=== PATIENT | female | born 1940 | race African-American/Black ===

== ENCOUNTER 2016-09-30 22:28 | Inpatient (IN) | payer MEDICARE ==
[2016-09-30 22:38] VITALS: BMI 22.3
[2016-09-30] MEDS ORDERED: SODIUM CHLORIDE 500 ML IV STA (23:14)
--- NOTE | 2016-09-30 23:14 | PDOC ---
History of Present Illness - General History Source: Patient, Family (daughter) Exam Limitations: No Limitations - History of Present Illness Initial Comments: 09/30/16 23:19 The patient is a 76 year old female with significant past medical history of MS who presents to the ED BIBA from home with rectal bleeding that began earlier this morning. As per daughter, at bedside, noted patient has had decreased energy over the past 4 days with lack of appetite today. She states normally patient has a good appetite, however she was not able to finish her meal today. Daughter also noted dark red blood with clot coming from the rectal area earlier this morning. Patient also has complaints of mild abdominal pain. Patient recently moved into a new apartment. The patient denies fever, chills, cough, SOB, chest pain, and palpitations. The patient denies nausea, vomiting, and diarrhea. Allergies: NKDA Social History: No alcohol, tobacco, or drug use reported. Past Surgical History: None reported PCP: Dr. Abimael Cao <Yeny Tyson - Last Filed: 09/30/16 23:23> - General History Source: Patient, Family Exam Limitations: No Limitations <Dallin Rahman - Last Filed: 10/01/16 00:11> - General Chief Complaint: Rectal Bleed Stated Complaint: RECTAL BLEED Time Seen by Provider: 09/30/16 22:52 Past History <Yeny Tyson - Last Filed: 09/30/16 23:23> - Past Medical History Other medical history: MS - Psycho/Social/Smoking Cessation Hx Suicidal Ideation: No Smoking History: Unknown if ever smoked Have you smoked in the past 12 months: No Information on smoking cessation initiated: No Hx Alcohol Use: No Drug/Substance Use Hx: No Substance Use Type: None <Dallin Rahman - Last Filed: 10/01/16 00:11> - Past Medical History Allergies/Adverse Reactions: Allergies Allergy/AdvReac Type Severity Reaction Status Date / Time No Known Allergies Allergy Verified 09/30/16 23:23 Home Medications: Ambulatory Orders Donepezil HCl 23 mg PO DAILY 09/30/16 Review of Systems - Review of Systems Able to Perform ROS?: Yes Comments:: 09/30/16 23:19 +rectal bleeding, decreased energy, lack of appetite, abdominal pain Absent: fever, chills, cough, SOB, chest pain, palpitations, nausea, vomiting, and diarrhea. <Yeny Tyson - Last Filed: 09/30/16 23:23> *Physical Exam - Vital Signs Last Vital Signs Temp Pulse Resp BP Pulse Ox 97.2 F L 61 17 143/48 100 09/30/16 22:34 09/30/16 22:34 09/30/16 22:34 09/30/16 22:34 09/30/16 22:34 <Yeny Tyson - Last Filed: 09/30/16 23:23> - Vital Signs Last Vital Signs Temp Pulse Resp BP Pulse Ox 97.2 F L 61 17 143/48 100 09/30/16 22:34 09/30/16 22:34 09/30/16 22:34 09/30/16 22:34 09/30/16 22:34 - Physical Exam General Appearance: Yes: Nourished, Appropriately Dressed. No: Apparent Distress HEENT: positive: Normal ENT Inspection Neck: positive: Supple. negative: Tender Respiratory/Chest: positive: Lungs Clear, Normal Breath Sounds. negative: Respiratory Distress Cardiovascular: positive: Regular Rhythm, Regular Rate Gastrointestinal/Abdominal: positive: Normal Bowel Sounds, Soft. negative: Tender Rectal Exam: positive: melena Musculoskeletal: positive: Normal Inspection. negative: CVA Tenderness Extremity: positive: Normal Inspection Integumentary: positive: Normal Color Neurologic: positive: Fully Oriented, Alert, Normal Mood/Affect, Normal Response. negative: Motor Strength 5/5 (hx of ms easandra not increased) <Dallni Rahman - Last Filed: 10/01/16 00:11> ED Treatment Course - LABORATORY CBC & Chemistry Diagram: 09/30/16 23:00 09/30/16 23:00 <Dallin Rahman - Last Filed: 10/01/16 00:11> Progress Note - Progress Note Progress Note: GIB admit ivf / labs <Dallin Rahman - Last Filed: 10/01/16 00:11> *DC/Admit/Observation/Transfer - Attestations Scribe Attestion: 09/30/16 23:20 Documentation prepared by Yeny Tyson, acting as senior medical transcriptionist for Dallin Rahman MD <Yeny Tyson - Last Filed: 09/30/16 23:23> - Discharge Dispostion Admit: Yes <Dallin Rahman - Last Filed: 10/01/16 00:11> Diagnosis at time of Disposition: Gastrointestinal hemorrhage Qualifiers: GI bleed type/associated pathology: unspecified gastrointestinal hemorrhage type Qualified Code(s): K92.2 - Gastrointestinal hemorrhage, unspecified - Discharge Dispostion Condition at time of disposition: Fair - Referrals Referrals: STAFF,NOT ON [Non Staff, Medical] -
[2016-09-30 23:26] LABS: BASOPHIL 0.8 % (0-2.0); EOSINOPHIL 2.9 % (0-4.5); MCH 28.8 pg (25.7-33.7); MCHC 32.4 g/dl (32.0-36.0); MEAN PLT VOLUME 9.4 fl (7.5-11.1); NEUTROPHILS 61.8 % (42.8-82.8); PLATELET COUNT 209 K/MM3 (134-434); RDW 13.7 % (11.6-15.6); WHITE BLOOD COUNT 9.7 K/mm3 (4.0-10.0)
[2016-09-30 23:42] LABS: INR 1.18 (0.82-1.09)
[2016-09-30 23:49] LABS: ALBUMIN 2.7 g/dl (3.4-5.0); ANION GAP 11 (8-16); BILIRUBIN,TOTAL 0.5 mg/dL (0.2-1.0); CALCIUM 8.1 mg/dL (8.5-10.1); CO2 25 mmol/L (21-32); CREATININE 0.7 mg/dL (0.55-1.02); GLUCOSE,RANDOM 119 mg/dL (74-106); SGPT/ALT 17 U/L (12-78); TOT PROT 5.9 g/dl (6.4-8.2)
[2016-09-30 23:50] LABS: ALK PHOS 63 U/L (45-117)
[2016-09-30 23:52] LABS: SGOT/AST 19 U/L (15-37)
--- NOTE | 2016-10-01 00:09 | PN ---
<KennethReylilian Miller - Last Filed: 10/01/16 01:13> Teaching Attending Note ATTENDING PHYSICIAN STATEMENT I saw and evaluated the patient. I reviewed the resident's note and discussed the case with the resident. I agree with the resident's findings and plan as documented. SUBJECTIVE: 76 year old female, with past medical history of MS, with rectal bleeding since 6am, which was first noticed by the daughter when she found a small pool of bright red blood. At the time the patient denied any kind of pain. She notes that this is the first time that this happened. Her BM had blood as well as if she had passed a blood clot. No bleeding throughout day until 9pm when she started to have abdominal cramping lower quadrants diffused. 6/10 severity. Patient initially thought she was having diarrhea. Had a total of 3 BMs thus far. All consisting of dark clots mixed with stool. Denies any chest pain, pressure, shortness of breath, lightheadedness or dizziness. Her last colonoscopy 3 years ago, normal according to patient and daughter. Never had an endoscopy. She denies trauma or fall and is not on any blood thinners. No pain Elicited on presentation Surgical hx: Hysterectomy No social hx OBJECTIVE: GENERAL: Awake, alert, and fully oriented, in no acute distress HEENT: Atraumatic. PERRLA, EOMI. Moist mucosa. No JVD LUNGS: No distress, speaks full sentences, clear to auscultation bilaterally HEART: Regular rate and rhythm, normal S1 and S2, no murmurs, rubs or gallops, peripheral pulses normal and equal bilaterally. ABDOMEN: Soft, nontender, normoactive bowel sounds. No guarding, no rebound. No masses EXTREMITIES: Normal inspection, Normal range of motion, no edema. No clubbing or cyanosis. NEUROLOGICAL: Cranial nerves II through XII grossly intact. Normal speech, no focal sensorimotor deficits SKIN: Warm, Dry, normal turgor, no rashes or lesions noted. RECTAL EXAM: Dark tarry stool with multipel blood clots. CBCD WBC 9.7 K/mm3 (4.0-10.0) 09/30/16 23:00 RBC 4.76 M/mm3 (3.60-5.2) 09/30/16 23:00 Hgb 13.7 GM/dL (10.7-15.3) 09/30/16 23:00 Hct 42.4 % (32.4-45.2) 09/30/16 23:00 MCV 89.0 fl (80-96) 09/30/16 23:00 MCHC 32.4 g/dl (32.0-36.0) 09/30/16 23:00 RDW 13.7 % (11.6-15.6) 09/30/16 23:00 Plt Count 209 K/MM3 (134-434) 09/30/16 23:00 MPV 9.4 fl (7.5-11.1) 09/30/16 23:00 CMP Sodium 145 mmol/L (136-145) 09/30/16 23:00 Potassium 3.9 mmol/L (3.5-5.1) 09/30/16 23:00 Chloride 109 mmol/L (98-107) H 09/30/16 23:00 Carbon Dioxide 25 mmol/L (21-32) 09/30/16 23:00 Anion Gap 11 (8-16) 09/30/16 23:00 BUN 11 mg/dL (7-18) 09/30/16 23:00 Creatinine 0.7 mg/dL (0.55-1.02) 09/30/16 23:00 Creat Clearance w eGFR > 60 (>60) 09/30/16 23:00 Calcium 8.1 mg/dL (8.5-10.1) L 09/30/16 23:00 Total Bilirubin 0.5 mg/dL (0.2-1.0) 09/30/16 23:00 AST 19 U/L (15-37) 09/30/16 23:00 ALT 17 U/L (12-78) 09/30/16 23:00 Alkaline Phosphatase 63 U/L (45-117) 09/30/16 23:00 Total Protein 5.9 g/dl (6.4-8.2) L 09/30/16 23:00 Albumin 2.7 g/dl (3.4-5.0) L 09/30/16 23:00 EKG (10/01/2016) at 22:50: Sinus tachycardia at 109 bpm Premature atrial complexes with aberrant conduction. Possible left atrial enlargement. ASSESSMENT AND PLAN: 76 year old female, with past medical history of MS who presents with dark blood from rectum. 1. Upper GI bleed -NPO -IVF -CBC Q4-6. -Transfuse to hem greater than 7 -PRVCs on hold -Protonix GGT -GI consult -2 large BORE IVs -Monitor on tely -Low threshold for ICU -Currently hemodynamically stable 2. MS -No current exacerbations -No on any medications 3. DVT ppx -SCDs Admit to med tely Spoke with ICU director of materials if GI bleed worsens or becomes unstable will transfer to ICU. Documentation prepared by Rey Cooper, acting as medical concierge for Farhan Ram MD. <Farhan Ram - Last Filed: 10/01/16 06:38> Teaching Attending Note Name of Resident: Therese Rodgers
[2016-10-01] MEDS ORDERED: PANTOPRAZOLE SODIUM 100 ML IVPB ONE ×2 (00:10→00:15)
--- NOTE | 2016-10-01 00:23 | HP ---
CHIEF COMPLAINT: Rectal bleeding PCP: Dr. Abimael Cao HISTORY OF PRESENT ILLNESS: Patient is a 76 year old female with a PMHx of multiple sclerosis who presents for rectal bleeding that first occurred around 0600 today first noticed by her daughter. Patient's daughter reports she found a small pool of bright red blood around her mother but at the time patient had no complaints of abdominal pain. Patient then had a bowel movement and noticed blood as well but with clots this time. After the first bowel movement the patient had no episodes of bleeding until 2100 today when she started having diffuse lower abdominal cramping rating with a 6/10 severity, which prompted this visit. Patient had a total of three bloody bowel movements today all consisting with dark red clots mixed with the stool. Patient's last colonoscopy was three years and and daughter states it was normal. She denies any previous endoscopies. Denies using NSAID's or blood thinners. Denies any trauma, injury or fall. Patient denies shortness of breath, lightheadedness, loss of consciousness, headache, dizziness, fever, chills, nausea, vomiting, constipation, chest pain, palpitations. Patient currently denies active abdominal pain ER course was notable for: (1) Protonix (2) EKG (3) IV NS Recent Travel: None PAST MEDICAL HISTORY: Multiple Sclerosis PAST SURGICAL HISTORY: Hysterectomy () Social History: Smoking: Denies Alcohol: Denies Drugs: Denies Family History: Denies Allergies: No Known Allergies Allergy (Verified 09/30/16 23:23) HOME MEDICATIONS: Medication Instructions Recorded Donepezil HCl 23 mg PO DAILY 09/30/16 REVIEW OF SYSTEMS CONSTITUTIONAL: Present: generalized weakness, malaise, loss of appetite Absent: fever, chills, diaphoresis, weight change HEENT: Absent: rhinorrhea, nasal congestion, throat pain, throat swelling, difficulty swallowing, mouth swelling, ear pain, eye pain, visual changes CARDIOVASCULAR: Absent: chest pain, syncope, palpitations, irregular heart rate, lightheadedness , peripheral edema RESPIRATORY: Absent: cough, shortness of breath, dyspnea with exertion, orthopnea, wheezing, stridor, hemoptysis GASTROINTESTINAL: Present: abdominal pain, melena Absent: abdominal distension, nausea, vomiting, diarrhea, constipation, hematochezia GENITOURINARY: Absent: dysuria, frequency, urgency, hesitancy, hematuria, flank pain, genital pain MUSCULOSKELETAL: Absent: myalgia, arthralgia, joint swelling, back pain, neck pain SKIN: Absent: rash, itching, pallor HEMATOLOGIC/IMMUNOLOGIC: Absent: easy bleeding, easy bruising, lymphadenopathy, frequent infections ENDOCRINE: Absent: unexplained weight gain, unexplained weight loss, heat intolerance, cold intolerance NEUROLOGIC: Absent: headache, focal weakness or paresthesias, dizziness, unsteady gait, seizure, mental status changes, bladder or bowel incontinence PSYCHIATRIC: Absent: anxiety, depression, suicidal or homicidal ideation, hallucinations. PHYSICAL EXAMINATION Vital Signs - 24 hr 09/30/16 22:34 Temperature 97.2 F L Pulse Rate 61 Respiratory 17 Rate Blood Pressure 143/48 O2 Sat by Pulse 100 Oximetry (%) GENERAL: Awake, alert, and fully oriented, in no acute distress. HEAD: Normal with no signs of trauma. EYES: Pupils equal, round and reactive to light, extraocular movements intact, sclera anicteric, conjunctiva clear. No lid lag. EARS, NOSE, THROAT: Ears normal, nares patent, oropharynx clear without exudates. Moist mucous membranes. NECK: Normal range of motion, supple without lymphadenopathy, JVD, or masses. LUNGS: Breath sounds equal, clear to auscultation bilaterally. No wheezes, and no crackles. No accessory muscle use. HEART: Tachycardic with normal rhythm, normal S1 and S2 without murmur, rub or gallop. ABDOMEN: Soft, nontender, not distended, normoactive bowel sounds, no guarding, no rebound, no masses. No hepatomegaly or splenomegaly. : Positive for stool and melena MUSCULOSKELETAL: No bony deformities or tenderness. UPPER EXTREMITIES: No peripheral edema. LOWER EXTREMITIES: No peripheral edema. NEUROLOGICAL: Normal speech. PSYCHIATRIC: Cooperative. Good eye contact. Appropriate mood and affect. SKIN: Warm, dry, normal turgor, no rashes or lesions noted. Laboratory Results - last 24 hr 09/30/16 09/30/16 09/30/16 23:00 23:00 23:00 WBC 9.7 RBC 4.76 Hgb 13.7 Hct 42.4 MCV 89.0 MCHC 32.4 RDW 13.7 Plt Count 209 MPV 9.4 Neutrophils % 61.8 Lymphocytes % 25.2 Monocytes % 9.3 Eosinophils % 2.9 Basophils % 0.8 INR 1.18 H Sodium 145 Potassium 3.9 Chloride 109 H Carbon Dioxide 25 Anion Gap 11 BUN 11 Creatinine 0.7 Creat Clearance w eGFR > 60 Random Glucose 119 H Calcium 8.1 L Total Bilirubin 0.5 AST 19 ALT 17 Alkaline Phosphatase 63 Total Protein 5.9 L Albumin 2.7 L ASSESSMENT/PLAN: Patient is a 76 year old female with a PMHx of multiple sclerosis who presents for rectal bleeding that began this morning. Patient is hemodynamically stable with with no Anemia. Patient admitted to telemetry for further monitoring and management Upper GI Bleed -NPO -Protonix drip -IV Normal Saline -Stool occult -GI consult placed with Dr. Piper -Type and screen -Transfuse patient if <7 or hemodynamically unstable -Repeat CBC Q4-6H -Will have PRBC's on hold -PT/INR ordered -Continue to monitor vitals Multiple Sclerosis -On no home medications -No acute exacerbation F/E/N -On protonix drip -Electrolytes wnl -NPO Prophylaxis -SCD's for DVT -Protonix drip for GI Disposition -Full code -Admitted for inpatient. Will need to see GI for possible endoscopy in the morning Visit type - Emergency Visit Emergency Visit: Yes ED Registration Date: 10/01/16 Care time: The patient presented to the Emergency Department on the above date and was hospitalized for further evaluation of their emergent condition. - New Patient This patient is new to me today: Yes Date on this admission: 10/01/16 - Critical Care Critical Care patient: Yes Total Critical Care Time (in minutes): 35 Critical Care Statement: The care of this patient involved high complexity decision making to prevent further life threatening deterioration of the patient 's condition and/or to evalute & treat vital organ system(s) failure or risk of failure.
--- NOTE | 2016-10-01 00:50 | MSN ---
Admitting History and Physical - Admission Chief Complaint: Rectal Bleed History of Present Illness: Pt is a 76 yr old F presenting to [facility] ED due to rectal bleed. As per daughter, this is a first time incident and pt awoke with a small pool of bright red blood on her bed at 6am with no associated pain. After waking up , pt had a bowel movement with reported "blood clots." At 9pm pt complained of 6/10 cramping, diffuse lower abdominal pain, after which she was brought to ED by daughter. Pt has been regular with bowel movements twice daily. Pt denies constipation, straining, weight loss, night sweats, chest pain, SOB, N/V/D, fevers, or chills. 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) - Past Surgical History Past Surgical History: Yes: Hysterectomy () - Smoking History Smoking history: Former smoker Have you smoked in the past 12 months: No - Alcohol/Substance Use Hx Alcohol Use: No Home Medications - Allergies Allergies/Adverse Reactions: Allergies Allergy/AdvReac Type Severity Reaction Status Date / Time No Known Allergies Allergy Verified 09/30/16 23:23 - Home Medications Home Medications: Ambulatory Orders Donepezil HCl 23 mg PO DAILY 09/30/16 Review of Systems - Review of Systems Constitutional: reports: No Symptoms Eyes: reports: No Symptoms HENT: reports: No Symptoms Neck: reports: No Symptoms Cardiovascular: reports: No Symptoms Respiratory: reports: No Symptoms Gastrointestinal: reports: No Symptoms Genitourinary: reports: No Symptoms Breasts: reports: No Symptoms Reported Musculoskeletal: reports: No Symptoms Integumentary: reports: No Symptoms Neurological: reports: No Symptoms Endocrine: reports: No Symptoms Hematology/Lymphatic: reports: No Symptoms Psychiatric: reports: No Symptoms Physical Examination Vital Signs: Vital Signs Temperature 97.2 F L 09/30/16 22:34 Pulse Rate 61 09/30/16 22:34 Respiratory Rate 09/30/16 22:34 Blood Pressure 143/48 09/30/16 22:34 O2 Sat by Pulse Oximetry (%) 100 09/30/16 22:34 Constitutional: Yes: Well Nourished, No Distress, Calm Eyes: Yes: WNL Cardiovascular: Yes: WNL, Regular Rate and Rhythm Respiratory: Yes: WNL, Regular, CTA Bilaterally Gastrointestinal: Yes: WNL, Normal Bowel Sounds, Soft Integumentary: Yes: WNL Neurological: Yes: WNL, Alert, Oriented Psychiatric: Yes: WNL, Alert, Oriented
[2016-10-01] MEDS ORDERED: PANTOPRAZOLE SODIUM 40 MG VIAL ONE ×2 (01:43→09:50)
[2016-10-01] MEDS: PANTOPRAZOLE SODIUM 80 MG in SODIUM CHLORIDE 100 ML IVPB SCH ×2 (01:54→11:41)
[2016-10-01 03:07] LABS: MCH 28.6 pg (25.7-33.7); MCHC 32.2 g/dl (32.0-36.0); MEAN CELL VOLUME 88.9 fl (80-96); MEAN PLT VOLUME 8.6 fl (7.5-11.1); PLATELET COUNT 185 K/MM3 (134-434); RDW 13.6 % (11.6-15.6); WHITE BLOOD COUNT 9.4 K/mm3 (4.0-10.0)
[2016-10-01] MEDS ORDERED: INSULIN SLIDING SCALE (NOVOLOG) 1 VIAL SQ SCH (07:00)
[2016-10-01 07:56] LABS: INR 1.22 (0.82-1.09); PROTHROMBIN TIME (PATIENT) 13.5 SEC (9.98-11.88)
[2016-10-01 08:08] LABS: ALBUMIN 2.8 g/dl (3.4-5.0); ANION GAP 6 (8-16); BASOPHIL 0.5 % (0-2.0); CALCIUM 7.6 mg/dL (8.5-10.1); CO2 30 mmol/L (21-32); CREATININE 0.7 mg/dL (0.55-1.02); EOSINOPHIL 2.2 % (0-4.5); GLUCOSE,RANDOM 98 mg/dL (74-106); MCH 29.7 pg (25.7-33.7); MEAN CELL VOLUME 90.1 fl (80-96); MEAN PLT VOLUME 8.9 fl (7.5-11.1); NEUTROPHILS 62.2 % (42.8-82.8); PLATELET COUNT 175 K/MM3 (134-434); RDW 13.5 % (11.6-15.6); SGOT/AST 12 U/L (15-37); SGPT/ALT 16 U/L (12-78); WHITE BLOOD COUNT 10.1 K/mm3 (4.0-10.0)
[2016-10-01 08:10] LABS: ALK PHOS 69 U/L (45-117); BILIRUBIN,TOTAL 0.7 mg/dL (0.2-1.0); TOT PROT 5.9 g/dl (6.4-8.2)
[2016-10-01] MEDS ORDERED: ACETAMINOPHEN 325 MG TABLET (FP) PO PRN ×2 (08:27→15:00)
[2016-10-01] MEDS ORDERED: MUPIROCIN 2% TOPICAL OINTMENT FOR DECOLONIZATION NS SCH (10:00)
[2016-10-01] MEDS ORDERED: SODIUM CHLORIDE 1,000 ML IV SCH ×2 (11:15→15:00)
[2016-10-01 11:53] LABS: MCH 29.8 pg (25.7-33.7); MCHC 33.3 g/dl (32.0-36.0); MEAN CELL VOLUME 89.6 fl (80-96); MEAN PLT VOLUME 8.6 fl (7.5-11.1); PLATELET COUNT 167 K/MM3 (134-434); RDW 13.4 % (11.6-15.6); WHITE BLOOD COUNT 10.9 K/mm3 (4.0-10.0)
--- NOTE | 2016-10-01 13:41 | PN ---
Teaching Attending Note Name of Resident: Leigh Brennan ATTENDING PHYSICIAN STATEMENT I saw and evaluated the patient. I reviewed the resident's note and discussed the case with the resident. I agree with the resident's findings and plan as documented. SUBJECTIVE: no fever ro chills, no abd apin . Has rectal bleed at time of evaluation 11:15 am . had abd pain evening yesterday . had colonoscopy reportedly 3 yrs ago and it was nL ., does not remember who did it . Denies any h/o GI bleed . denies any use of NSAIDs or ASA . no N/V even at home OBJECTIVE: NAD , AAOx3 . HEENT: dry MM , no facial droop. no LAP CV: RRR, no MRG , no JVD Lungs : CTAB ABd :soft, NT, ND , NL BS . Ext : trace pedal edema . Rectal: diaper full with dark maroon/black blood with clots, no stool seen. NL hair distribution , stool felt in rectum , with no masses , no internal hemorrhoids and no external hemorrhoids or fissure. ASSESSMENT AND PLAN: 76 y/o Lady with h/o MS who presented with few episodes of Rectal bleed . 1- GI bleed : I suspect lower dource of GI Bleed. Likely from R colon . DDX include diverticular and AVM . Hemorrhoidal bleed , rectal fissure, are not likely . Upper GI bleed is less likely , as her BUN is not elevated, no h/o GERD sx, no NSAIDS/ASA use, and no Nausea or vomiting . I do not suspect bowel ischemia . - start IVF - CBC repeated , slight drop. will repeat q 4 hrs - cont empiric PPI gtt . - Spoke with Dr. Piper, CTA ordered. - avoid any blood thinning products. - will give a unit of blood as bleeding was significant . will give 5 mg of PO Vit K . - further w/u /procedures will be depending on CTA results 2- h/o MS . f/u as out pt 3- DVT PX : SCds Admit to ICU . spoke to Dr. Dean.
[2016-10-01] MEDS ORDERED: PHYTONADIONE 5 MG TABLET PO ONE (14:00)
--- NOTE | 2016-10-01 14:52 | CONSULT ---
Consult Consult Specialty:: gastroenterology Referred by:: hospitalist - History of Present Illness Chief Complaint: rectal bleeding History of Present Illness: 76 y/o female was admitted to the ICU because of rectal bleeding associated wit crampy abdominal pain. She had sevrealepisodes of bleeding since last night associated with tachycardia. Ct angio this morning fail to show active bleeding. She had dark maroon stool. 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) - Past Surgical History Past Surgical History: Yes: Hysterectomy () - Alcohol/Substance Use Hx Alcohol Use: No - Smoking History Smoking history: Former smoker Have you smoked in the past 12 months: No Home Medications - Allergies Allergies/Adverse Reactions: Allergies Allergy/AdvReac Type Severity Reaction Status Date / Time No Known Allergies Allergy Verified 09/30/16 23:23 - Home Medications Home Medications: Ambulatory Orders Donepezil HCl 23 mg PO DAILY 09/30/16 Physical Exam-GI Vital Signs: Vital Signs Temperature 97.9 F 10/01/16 12:56 Pulse Rate 106 H 10/01/16 12:56 Respiratory Rate 19 10/01/16 12:56 Blood Pressure 109/87 10/01/16 12:56 O2 Sat by Pulse Oximetry (%) 99 10/01/16 13:16 Constitutional: Yes: Well Nourished Eyes: Yes: Conjunctiva Clear HENT: Yes: Atraumatic Neck: Yes: Supple Cardiovascular: Yes: Regular Rate and Rhythm Respiratory: Yes: CTA Bilaterally ...Palpate: Yes: Soft. No: Firm/Rigid, Guarding, Hepatomegaly, Mass, Pulsatile Mass, Splenomegaly, Tenderness Labs: CBC, BMP 10/01/16 11:17 10/01/16 07:00 INR, PTT INR 1.22 (0.82-1.09) H 10/01/16 07:00 Imaging - Results Cat Scan: Report Reviewed Problem List - Problems (1) GIB (gastrointestinal bleeding) Assessment/Plan: most likely diverticular bleeding R> continue to observe in ICU transfuse 1 unit of PRBC clear liquids Code(s): K92.2 - GASTROINTESTINAL HEMORRHAGE, UNSPECIFIED
--- NOTE | 2016-10-01 15:18 | MSN ---
Progress Note (SOAP) - Subjective Chief Complaint: Rectal Bleeding History of Present Illness: Patient was examined at bedside with her daughter. Patient was calm and in no apparent distress. She claimed that she has had 3x bowel movements yesterday with active bleeding, Dark colored with dark colored stool. She said that she had not had any bowel movements today. However her nurses have noted that she has had her diaper changed multiple times today due to dark blood coming from the rectum. Patient is currently not complaining of any abdominal pain, but is having some back pain she says due to how she is positioned. No lightheadedness , CP, NVD, cough, MCKINNEY, or weakness. - Current Medications Current Medications: Active Medications Acetaminophen (Tylenol -) 650 mg PO Q4H PRN PRN Reason: FEVER OR PAIN Chlorhexidine Gluconate (Hibiclens For Decolonization -) 1 applic TP HS JACINTO Pantoprazole Sodium 80 mg/ (Sodium Chloride) 100 mls @ 10 mls/hr IVPB Q10H JACINTO PRN Reason: 8 MG/HR Sodium Chloride (Normal Saline -) 1,000 mls @ 75 mls/hr IV ASDIR JACINTO Insulin Aspart (Novolog Vial Sliding Scale -) 1 vial SQ BIDI JACINTO PRN Reason: Protocol Mupirocin (Bactroban Ointment (For Decolonization) -) 1 applic NS BID JACINTO Stop: 10/06/16 09:59 - Objective Vital Signs: Vital Signs Temperature 97.8 F 10/01/16 14:15 Pulse Rate 100 H 10/01/16 14:15 Respiratory Rate 18 10/01/16 14:15 Blood Pressure 144/55 10/01/16 14:15 O2 Sat by Pulse Oximetry (%) 100 10/01/16 14:55 Constitutional: Yes: Well Nourished, No Distress, Calm Eyes: Yes: WNL, Conjunctiva Clear, EOM Intact, PERRL HENT: Yes: WNL, Atraumatic, Normocephalic Cardiovascular: Yes: WNL, Regular Rate and Rhythm, S1, S2 Respiratory: Yes: WNL, Regular, CTA Bilaterally. No: Kussmaul, Mechanically Ventilated, On BiPap, On Nasal O2 Gastrointestinal: Yes: Normal Bowel Sounds, Soft, Melena, Rectal Bleeding (Dark Black). No: Splenomegaly, Tenderness, Tenderness, Epigastrium, Tenderness, Rebound, Vomiting ...Rectal Exam: Yes: Guaiac Positive. No: Hemorrhoids/External, Hemorrhoids/ Internal Musculoskeletal: Yes: WNL, Other (MS) Extremities: Yes: WNL Peripheral Pulses WNL: Yes Peripheral Pulses: Left Radial: 2+, Right Radial: 2+, Left Doralis Pedis: 2+, Right Dorsalis Pedis: 2+ Edema: No Neurological: Yes: Alert, Oriented, Other (MS) ...Motor Strength: Yes: WNL Psychiatric: Yes: WNL, Alert, Oriented Labs Lab Results: CBC, BMP 10/01/16 07:00 Assessment/Plan Arina Garcia is a 76 year old female w/ Hx of multiple sclerosis who presented for dark red rectal bleeding. Patient admitted to telemetry for further monitoring and management Lower/Upper GI Bleed -NPO -Protonix drip -IV Normal Saline -Stool occult -Positive -GI consult - Most likely Diverticulilar bleed -Transfusion as needed -CT Angiogram/Abdomen -Continue to monitor vitals -NG Lavage -Stool test for H. Pylori -Endoscopy -Colonoscopy Multiple Sclerosis -No home meds -PT Prophylaxis -SCD's for DVTs
[2016-10-01 15:27] LABS: MCH 29.1 pg (25.7-33.7); MCHC 32.5 g/dl (32.0-36.0); MEAN CELL VOLUME 89.4 fl (80-96); MEAN PLT VOLUME 8.9 fl (7.5-11.1); PLATELET COUNT 162 K/MM3 (134-434); RDW 13.7 % (11.6-15.6); WHITE BLOOD COUNT 8.7 K/mm3 (4.0-10.0)
[2016-10-01] MEDS ORDERED: DEXTROSE 5%-NORMAL SALINE 1,000 ML IV SCH (15:30)
--- NOTE | 2016-10-01 15:37 | PN ---
Physical Exam: SUBJECTIVE: Patient seen and examined. The pt had another episode of bleeding from her rectum, dark blood with clots present. The pt denies abdominal pain, N/ V, diarrhea. She denies any recent ASA use. She denies fever, chills, dizziness. She has never had bleeding in the past. her sister was present at bedside. OBJECTIVE: Vital Signs Period Temp Pulse Resp BP Sys/Yen Pulse Ox Last 24 Hr 97.8 F-99.7 F 68-106 17-19 109-157/49-87 98-100 GENERAL: The patient is awake, alert, and fully oriented, in no acute distress. HEAD: Normal with no signs of trauma. EYES: PERRL, extraocular movements intact, sclera anicteric, conjunctiva clear. No ptosis. ENT: Ears normal, nares patent, oropharynx clear without exudates, moist mucous membranes. NECK: Trachea midline, full range of motion, supple. LUNGS: Breath sounds equal, clear to auscultation bilaterally, no wheezes, no crackles, no accessory muscle use. HEART: Regular rate and rhythm, S1, S2 without murmur, rub or gallop. ABDOMEN: Soft, nontender, nondistended, normoactive bowel sounds, no guarding, no rebound, no hepatosplenomegaly, no masses. EXTREMITIES: 2+ pulses, warm, well-perfused, no edema. NEUROLOGICAL: Cranial nerves II through XII grossly intact. Normal speech, gait not observed. PSYCH: Normal mood, normal affect. SKIN: Warm, dry, normal turgor, no rashes or lesions noted Laboratory Results - last 24 hr 10/01/16 10/01/16 10/01/16 02:20 02:50 07:00 WBC 9.4 10.1 H RBC 4.22 3.95 Hgb 12.1 D 11.7 Hct 37.5 35.6 MCV 88.9 90.1 MCHC 32.2 33.0 RDW 13.6 13.5 Plt Count 185 175 MPV 8.6 8.9 Neutrophils % 62.2 Lymphocytes % 26.6 Monocytes % 8.5 Eosinophils % 2.2 Basophils % 0.5 Retic Count 1.00 INR PTT (Actin FS) Sodium Potassium Chloride Carbon Dioxide Anion Gap BUN Creatinine Creat Clearance w eGFR Random Glucose Calcium Total Bilirubin AST ALT Alkaline Phosphatase Total Protein Albumin Stool Occult Blood Positive Blood Type 10/01/16 10/01/16 10/01/16 07:00 07:00 07:00 WBC RBC Hgb Hct MCV MCHC RDW Plt Count MPV Neutrophils % Lymphocytes % Monocytes % Eosinophils % Basophils % Retic Count INR 1.22 H PTT (Actin FS) 28.6 Sodium 143 Potassium 4.4 Chloride 107 Carbon Dioxide 30 Anion Gap 6 L BUN 10 Creatinine 0.7 Creat Clearance w eGFR > 60 Random Glucose 98 Calcium 7.6 L Total Bilirubin 0.7 D AST 12 L D ALT 16 Alkaline Phosphatase 69 Total Protein 5.9 L Albumin 2.8 L Stool Occult Blood Blood Type 10/01/16 10/01/16 10/01/16 09:00 11:17 15:00 WBC 10.9 H 8.7 RBC 3.78 3.61 Hgb 11.3 10.5 L Hct 33.8 32.2 L MCV 89.6 89.4 MCHC 33.3 32.5 RDW 13.4 13.7 Plt Count 167 162 MPV 8.6 8.9 Neutrophils % Lymphocytes % Monocytes % Eosinophils % Basophils % Retic Count INR PTT (Actin FS) Sodium Potassium Chloride Carbon Dioxide Anion Gap BUN Creatinine Creat Clearance w eGFR Random Glucose Calcium Total Bilirubin AST ALT Alkaline Phosphatase Total Protein Albumin Stool Occult Blood Blood Type O POSITIVE Active Medications Generic Name Dose Route Start Last Admin Trade Name Freq PRN Reason Stop Dose Admin Acetaminophen 650 mg 10/01/16 15:00 Tylenol - PO Q4H PRN FEVER OR PAIN Chlorhexidine Gluconate 1 applic 10/01/16 22:00 Hibiclens For Decolonization - TP HS JACINTO Pantoprazole Sodium 80 mg/ 100 mls @ 10 mls/hr 10/01/16 21:15 Sodium Chloride IVPB Q10H JACINTO 8 MG/HR Dextrose/Sodium Chloride 1,000 mls @ 75 mls/hr 10/01/16 15:30 D5-Ns - IV ASDIR JACINTO Insulin Aspart 1 vial 10/01/16 16:30 Novolog Vial Sliding Scale - SQ BIDI JACINTO Protocol Mupirocin 1 applic 10/01/16 22:00 Bactroban Ointment (For Decolonization) - NS 10/06/16 09:59 BID JACINTO ASSESSMENT/PLAN: Patient is a 76 year old female with a PMHx of multiple sclerosis who presents for rectal bleeding that began this morning. The pt had one more episode of bleeding from her rectum in ED. Patient admitted to ICU for further monitoring and management. Lower GI Bleed: -probably Diverticular bleeding or AV malformation, lower GI bleed although dark blood would suggest upper GI. No history of bleeding in the past. last colonoscopy was WNL 3 years ago. -NPO -changed Protoni drip to IV -IV Normal Saline at rate 75 ml/hr -Stool occult positive -GI consulted -Type and screen -Transfuse patient 1 u PRBC if Hgb less than 10 -Repeat CBC Q4-6H -PT/INR ordered -monitor vitals -Vit K ordered Multiple Sclerosis -On no home medications -No acute exacerbation F/E/N -On protonix drip -Electrolytes wnl -NPO Prophylaxis -SCD's for DVT -Protonix drip for GI Disposition -The pt is transferred to ICU Visit type - Emergency Visit Emergency Visit: Yes ED Registration Date: 10/01/16 Care time: The patient presented to the Emergency Department on the above date and was hospitalized for further evaluation of their emergent condition. - New Patient This patient is new to me today: Yes Date on this admission: 10/01/16 - Critical Care Critical Care patient: Yes Total Critical Care Time (in minutes): 40 Critical Care Statement: The care of this patient involved high complexity decision making to prevent further life threatening deterioration of the patient 's condition and/or to evalute & treat vital organ system(s) failure or risk of failure.
--- NOTE | 2016-10-01 16:27 | CONSULT ---
Consultation: REQUESTING PROVIDER: CONSULT REQUEST: We have been asked to medically evaluate this patient for GI bleed. HISTORY OF PRESENT ILLNESS: 76 yo F with a PMHx of MS who presents for BRBPR that was noted at 0600 seen by patients daughter. Bloody bowel movements X3 all consisting with dark red clots mixed with the stool. Patient's last colonoscopy was three years unremarkable as per daughter. She denies any previous endoscopies. Denies anticoagulation. Denies any trauma, injury or fall. Patient denies sob, lightheadedness, loss of consciousness, headache, dizziness, fever, chills, nausea, vomiting, constipation, chest pain, palpitations. Patient currently denies active abdominal pain ER course was notable for: (1) Protonix drip started (2) EKG Sinus Tach (3) IV NS Recent Travel: None PAST MEDICAL HISTORY: Multiple Sclerosis PAST SURGICAL HISTORY: Hysterectomy () Social History: Smoking: Denies Alcohol: Denies Drugs: Denies Family History: Denies Allergies: No Known Allergies Allergy (Verified 09/30/16 23:23) REVIEW OF SYSTEMS: CONSTITUTIONAL: Absent: fever, chills, diaphoresis, generalized weakness, malaise, loss of appetite, weight change HEENT: Absent: rhinorrhea, nasal congestion, throat pain, throat swelling, difficulty swallowing, mouth swelling, ear pain, eye pain, visual changes CARDIOVASCULAR: Absent: chest pain, syncope, palpitations, irregular heart rate, lightheadedness , peripheral edema RESPIRATORY: Absent: cough, shortness of breath, dyspnea with exertion, orthopnea, wheezing, stridor, hemoptysis GASTROINTESTINAL: Absent: abdominal pain, abdominal distension, nausea, vomiting, diarrhea, constipation, melena, hematochezia GENITOURINARY: Absent: dysuria, frequency, urgency, hesitancy, hematuria, flank pain, genital pain MUSCULOSKELETAL: Absent: myalgia, arthralgia, joint swelling, back pain, neck pain SKIN: Absent: rash, itching, pallor HEMATOLOGIC/IMMUNOLOGIC: Absent: easy bleeding, easy bruising, lymphadenopathy, frequent infections ENDOCRINE: Absent: unexplained weight gain, unexplained weight loss, heat intolerance, cold intolerance NEUROLOGIC: Absent: headache, focal weakness or paresthesias, dizziness, unsteady gait, seizure, mental status changes, bladder or bowel incontinence PSYCHIATRIC: Absent: anxiety, depression, suicidal or homicidal ideation, hallucinations. PHYSICAL EXAMINATION Vital Signs - 24 hr 10/01/16 10/01/16 10/01/16 03:03 06:47 08:34 Temperature 99.7 F H Pulse Rate Pulse Rate [ 92 H 96 H 68 Right Radial] Respiratory 17 17 18 Rate Blood Pressure Blood Pressure 126/49 137/58 157/64 [Left Arm] O2 Sat by Pulse 98 99 99 Oximetry (%) 10/01/16 10/01/16 10/01/16 12:30 12:56 13:16 Temperature 97.8 F 97.9 F Pulse Rate Pulse Rate [ 90 106 H Right Radial] Respiratory 19 19 Rate Blood Pressure Blood Pressure 134/51 109/87 [Left Arm] O2 Sat by Pulse 99 99 99 Oximetry (%) 10/01/16 10/01/16 14:15 14:55 Temperature 97.8 F Pulse Rate 100 H Pulse Rate [ Right Radial] Respiratory 18 Rate Blood Pressure 144/55 Blood Pressure [Left Arm] O2 Sat by Pulse 100 Oximetry (%) GENERAL: Awake, alert, in no acute distress. HEAD: Normal with no signs of trauma. EYES: Pupils equal, round and reactive to light, sclera anicteric, conjunctiva clear. No lid lag. EARS, NOSE, THROAT: Ears normal, nares patent,Moist mucous membranes. NECK: supple without lymphadenopathy, JVD, or masses. LUNGS: Breath sounds equal, clear to auscultation bilaterally. No wheezes, and no crackles. No accessory muscle use. HEART: Tachycardic, normal S1 and S2 without murmur, rub or gallop. ABDOMEN: Soft, nontender, not distended, normoactive bowel sounds, no guarding, no rebound, no masses. No hepatomegaly or splenomegaly. MUSCULOSKELETAL: Normal range of motion at all joints. No bony deformities or tenderness. No CVA tenderness. UPPER EXTREMITIES: 2+ pulses, warm, well-perfused. No cyanosis. No clubbing. no edema. LOWER EXTREMITIES: 2+ pulses, warm, well-perfused. No calf tenderness. trace edema. NEUROLOGICAL: AAOx3 PSYCHIATRIC: Cooperative. Good eye contact. Appropriate mood and affect. SKIN: Warm, dry, normal turgor, no rashes or lesions noted. Laboratory Results - last 24 hr 10/01/16 10/01/16 10/01/16 02:20 02:50 07:00 WBC 9.4 10.1 H RBC 4.22 3.95 Hgb 12.1 D 11.7 Hct 37.5 35.6 MCV 88.9 90.1 MCHC 32.2 33.0 RDW 13.6 13.5 Plt Count 185 175 MPV 8.6 8.9 Neutrophils % 62.2 Lymphocytes % 26.6 Monocytes % 8.5 Eosinophils % 2.2 Basophils % 0.5 Retic Count 1.00 INR PTT (Actin FS) Sodium Potassium Chloride Carbon Dioxide Anion Gap BUN Creatinine Creat Clearance w eGFR Random Glucose Calcium Total Bilirubin AST ALT Alkaline Phosphatase Total Protein Albumin Stool Occult Blood Positive Blood Type 10/01/16 10/01/16 10/01/16 07:00 07:00 07:00 WBC RBC Hgb Hct MCV MCHC RDW Plt Count MPV Neutrophils % Lymphocytes % Monocytes % Eosinophils % Basophils % Retic Count INR 1.22 H PTT (Actin FS) 28.6 Sodium 143 Potassium 4.4 Chloride 107 Carbon Dioxide 30 Anion Gap 6 L BUN 10 Creatinine 0.7 Creat Clearance w eGFR > 60 Random Glucose 98 Calcium 7.6 L Total Bilirubin 0.7 D AST 12 L D ALT 16 Alkaline Phosphatase 69 Total Protein 5.9 L Albumin 2.8 L Stool Occult Blood Blood Type 10/01/16 10/01/16 10/01/16 09:00 11:17 15:00 WBC 10.9 H 8.7 RBC 3.78 3.61 Hgb 11.3 10.5 L Hct 33.8 32.2 L MCV 89.6 89.4 MCHC 33.3 32.5 RDW 13.4 13.7 Plt Count 167 162 MPV 8.6 8.9 Neutrophils % Lymphocytes % Monocytes % Eosinophils % Basophils % Retic Count INR PTT (Actin FS) Sodium Potassium Chloride Carbon Dioxide Anion Gap BUN Creatinine Creat Clearance w eGFR Random Glucose Calcium Total Bilirubin AST ALT Alkaline Phosphatase Total Protein Albumin Stool Occult Blood Blood Type O POSITIVE Active Medications Generic Name Dose Route Start Last Admin Trade Name Freq PRN Reason Stop Dose Admin Acetaminophen 650 mg 10/01/16 15:00 Tylenol - PO Q4H PRN FEVER OR PAIN Chlorhexidine Gluconate 1 applic 10/01/16 22:00 Hibiclens For Decolonization - TP HS JACINTO Pantoprazole Sodium 80 mg/ 100 mls @ 10 mls/hr 10/01/16 21:15 Sodium Chloride IVPB Q10H JACINTO 8 MG/HR Dextrose/Sodium Chloride 1,000 mls @ 75 mls/hr 10/01/16 15:30 10/01/16 15:38 D5-Ns - IV 75 mls/hr ASDIR JACINTO Administration Insulin Aspart 1 vial 10/01/16 16:30 Novolog Vial Sliding Scale - SQ BIDI JACINTO Protocol Mupirocin 1 applic 10/01/16 22:00 Bactroban Ointment (For Decolonization) - NS 10/06/16 09:59 BID JACINTO ASSESSMENT/PLAN: 76 year old female with a PMHx of multiple sclerosis who presents for BRBPR. Patient transferred to ICU for close monitoring. GI: * Seen by GI Dr. Hussein * Advanced to clear liquid diet. * Protonix drip * IV Normal Saline * Transfuse patient if <7 or hemodynamically unstable * Continue to monitor vitals Multiple Sclerosis * On no home medications * No acute exacerbation F/E/N * On protonix drip * Electrolytes wnl * Advanced to clears Prophylaxis: * SCD's for DVT * Protonix drip for GI Dispo: We will continue to follow the patient. Thank you for this consultative opportunity. Visit type - Emergency Visit Emergency Visit: Yes ED Registration Date: 10/01/16 Care time: The patient presented to the Emergency Department on the above date and was hospitalized for further evaluation of their emergent condition. - New Patient This patient is new to me today: Yes Date on this admission: 10/02/16 - Critical Care Critical Care patient: Yes Total Critical Care Time (in minutes): 30 Critical Care Statement: The care of this patient involved high complexity decision making to prevent further life threatening deterioration of the patient 's condition and/or to evalute & treat vital organ system(s) failure or risk of failure.
[2016-10-01] MEDS: INSULIN SLIDING SCALE (NOVOLOG) 1 VIAL SQ SCH (17:11)
[2016-10-01] MEDS ORDERED: PANTOPRAZOLE SODIUM 40 MG in SODIUM CHLORIDE 100 ML IVPB SCH (17:15)
[2016-10-01] MEDS: PANTOPRAZOLE SODIUM 40 MG/100 ML PRE-DOCKED IVPB SCH (18:06)
[2016-10-01] MEDS ORDERED: ACETYLCYSTEINE 20% 200MG/ML 30ML VIAL *FOR INJECTION USE ONLY IVPB ONE (19:23)
[2016-10-01] MEDS: DEXTROSE 5%-NORMAL SALINE 1,000 ML IV SCH (19:30)
--- NOTE | 2016-10-01 19:33 | HOSP ---
Subjective - Review of Symptoms Events since last encounter: called pt is having rectal bleed again, dark blood with clots . - will transfuse a unit of blood - check Hb after transfusion and throughout the night - Keep Hb > 10 . - Spoke to Bran Nguyen for another CTA . - will increase IVF to 100 . will give Mucomyst now , and 2 doses tomorrow for kidney protection . - if CTA is positive , need IR intervention - if NEg will monitor over night - case signed out to Dr. Ram who will dw pt above plan and follow over night . Physical Examination Vital Signs: Vital Signs Temperature 97.8 F 10/01/16 14:15 Pulse Rate 102 H 10/01/16 18:00 Respiratory Rate 18 10/01/16 18:00 Blood Pressure 153/57 10/01/16 18:00 O2 Sat by Pulse Oximetry (%) 100 10/01/16 18:00 Labs: CBC, BMP 10/01/16 15:00 10/01/16 07:00
[2016-10-01] MEDS ORDERED: ACETYLCYSTEINE IVPB ONE (19:45)
[2016-10-01] MEDS ORDERED: WATER IVPB ONE (19:45)
[2016-10-01] MEDS ORDERED: DEXTROSE 5% IVPB ONE (19:45)
--- NOTE | 2016-10-01 20:05 | HOSP ---
Subjective - Review of Symptoms Subjective: Spoke with Dr. Jo who recc. against CTA Pt. has no repeat episodes of dark stools except one small dark BM 1/2 hr ago Pt. Denies any abdominal pain VS: HR 99-102, BP 140-150's/40-70s Will Monitor pt. closely for bright red blood per rectum- or hypotensive/ tachycardic Called and notified him of change of plans and also let pt. know will monitor her closely in ICU and c/w Transfusion Hgb>10 CC Time: 15 Minutes Physical Examination Vital Signs: Vital Signs Temperature 98.3 F 10/01/16 19:00 Pulse Rate 98 H 10/01/16 19:00 Respiratory Rate 20 10/01/16 19:50 Blood Pressure 142/39 10/01/16 19:00 O2 Sat by Pulse Oximetry (%) 100 10/01/16 19:50 Labs: CBC, BMP 10/01/16 15:00 10/01/16 07:00
--- NOTE | 2016-10-01 20:16 | CONSULT ---
Consult Consult Specialty:: Pulm/CC - History of Present Illness History of Present Illness: Pt is a 76yr old woman with PMHx MS. She presents to the ER with CC of rectal bleeding, noticed by her daughter with associated diarrhea for "a few days". Pt initially admitted to the floor but was transferred to the ICU for continued bleeding with noted hemoglobin drop from 12.1 --> 10.5. Upon assessment pt denies regular nsaid/asa use, chest pain/sob/headache/n/v, endorses diarrhea. 121/51, HR sinus on tele 90s-low 100s, 100% o2. Pt receiving blood transfusion. 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) - Past Surgical History Past Surgical History: Yes: Hysterectomy () - Alcohol/Substance Use Hx Alcohol Use: No - Smoking History Smoking history: Former smoker Have you smoked in the past 12 months: No Home Medications - Allergies Allergies/Adverse Reactions: Allergies Allergy/AdvReac Type Severity Reaction Status Date / Time No Known Allergies Allergy Verified 09/30/16 23:23 - Home Medications Home Medications: Ambulatory Orders Donepezil HCl 23 mg PO DAILY 09/30/16 Review of Systems - Review of Systems Cardiovascular: denies: Chest Pain, Palpitations, Shortness of Breath Respiratory: denies: SOB Gastrointestinal: reports: Diarrhea, Melena. denies: Nausea, Vomiting Genitourinary: denies: Dysuria Neurological: denies: Headache Physical Exam Vital Signs: Vital Signs Period Temp Pulse Resp BP Sys/Yen Pulse Ox Last 24 Hr 97.2 F-99.7 F 61-106 16-20 109-157/39-97 98-100 Intake & Output 09/28/16 09/29/16 09/30/16 10/01/16 23:59 23:59 23:59 23:59 Intake Total 437.5 Output Total 120 Balance 317.5 Weight 130 lb 130 lb Constitutional: Yes: No Distress, Calm Eyes: Yes: PERRL HENT: Yes: Other (facial hirsutism) Neck: Yes: WNL Cardiovascular: Yes: Tachycardia (low 100s), S1, S2, Other (sinus on tele) Respiratory: Yes: CTA Bilaterally, Diminished (bilaterally at bases), Other (no adventitious breath sounds appreciated) Gastrointestinal: Yes: Normal Bowel Sounds. No: Tenderness Edema: Yes Edema: LLE: 1+, RLE: 1+ Peripheral Pulses WNL: Yes (+2 bilateral pedal pulses) Integumentary: Yes: WNL Neurological: Yes: Alert Psychiatric: Yes: WNL Labs: Abnormal Lab Results 09/30/16 09/30/16 09/30/16 23:00 23:00 23:00 WBC Hgb Hct INR 1.18 H Chloride 109 H Anion Gap Random Glucose 119 H Calcium 8.1 L AST Total Protein 5.9 L Albumin 2.7 L Crossmatch See Detail 10/01/16 10/01/16 10/01/16 07:00 07:00 07:00 WBC 10.1 H Hgb Hct INR 1.22 H Chloride Anion Gap 6 L Random Glucose Calcium 7.6 L AST 12 L D Total Protein 5.9 L Albumin 2.8 L Crossmatch 10/01/16 10/01/16 10/01/16 09:00 11:17 15:00 WBC 10.9 H Hgb 10.5 L Hct 32.2 L INR Chloride Anion Gap Random Glucose Calcium AST Total Protein Albumin Crossmatch See Detail Imaging - Results Chest X-ray: Report Reviewed, Image Reviewed Assessment/Plan Pt is a 76yr old woman with PMHx of MS. Now in the ICU for management of GIB. Pulm: -o2 support PRN for sat >94% -Incentive spirometer ID: -f/u influenza swab -Monitor off antibiotics for now GI: -Dr. Hussein following -f/u ab/pel CT (read pending) -Monitor h/h, transfuse prn Renal: -IVF as tolerated (trace BLE edema) -Replete electrolytes prn Cardiac: ble +1 edema to ankles -f/u bnp Neuro -Continue home ms medication -Pain management Prophylactic -Avoid nsaids -DVT
[2016-10-01] MEDS ORDERED: CALCIUM GLUCONATE 10% - 1,000 MG/10 ML VIAL IVPB ONE (20:48)
[2016-10-01] MEDS ORDERED: PANTOPRAZOLE SODIUM 80 MG in SODIUM CHLORIDE 100 ML IVPB SCH (21:15)
[2016-10-01] MEDS: MUPIROCIN 2% TOPICAL OINTMENT FOR DECOLONIZATION NS SCH (21:32)
[2016-10-01] MEDS: CHLORHEXIDINE GLUCONATE 4% CLEANSER FOR DECOLONIZATION TP SCH (21:33)
[2016-10-01] MEDS ORDERED: DEXTROSE 5% IVPB SCH (22:00)
[2016-10-01] MEDS ORDERED: CHLORHEXIDINE GLUCONATE 4% CLEANSER FOR DECOLONIZATION TP SCH (22:00)
[2016-10-01] MEDS ORDERED: ACETYLCYSTEINE IVPB SCH (22:00)
[2016-10-01] MEDS ORDERED: WATER IVPB SCH (22:00)
[2016-10-01] MEDS ORDERED: ACETYLCYSTEINE 20% 200MG/ML 30ML VIAL *FOR INJECTION USE ONLY IVPB SCH (22:00)
[2016-10-01 22:54] LABS: MCH 29.7 pg (25.7-33.7); MEAN CELL VOLUME 89.8 fl (80-96); MEAN PLT VOLUME 8.7 fl (7.5-11.1); PLATELET COUNT 144 K/MM3 (134-434); RDW 13.6 % (11.6-15.6); WHITE BLOOD COUNT 8.2 K/mm3 (4.0-10.0)
[2016-10-01 23:19] LABS: ANION GAP 8 (8-16); CALCIUM 7.8 mg/dL (8.5-10.1); CO2 28 mmol/L (21-32); CREATININE 0.6 mg/dL (0.55-1.02); GLUCOSE,RANDOM 93 mg/dL (74-106); PHOSPHOROUS 2.2 mg/dL (2.5-4.9)
[2016-10-01 23:21] LABS: TROPONIN I < 0.02 ng/ml (0.00-0.05)
[2016-10-01] MEDS ORDERED: POTASSIUM PHOSPHATE 15 MM in DEXTROSE 5%-WATER - 250 ML IVPB ONE (23:43)
[2016-10-02 01:45] LABS: MCH 29.4 pg (25.7-33.7); MEAN PLT VOLUME 9.1 fl (7.5-11.1); PLATELET COUNT 158 K/MM3 (134-434); RDW 13.3 % (11.6-15.6); WHITE BLOOD COUNT 9.3 K/mm3 (4.0-10.0)
[2016-10-02 05:56] LABS: MCHC 33.6 g/dl (32.0-36.0); MEAN CELL VOLUME 89.1 fl (80-96); MEAN PLT VOLUME 8.9 fl (7.5-11.1); PLATELET COUNT 166 K/MM3 (134-434); RDW 13.3 % (11.6-15.6); WHITE BLOOD COUNT 9.5 K/mm3 (4.0-10.0)
[2016-10-02 06:18] LABS: INR 1.2 (0.82-1.09); PROTHROMBIN TIME (PATIENT) 13.2 SEC (9.98-11.88)
[2016-10-02 06:27] LABS: ALBUMIN 2.7 g/dl (3.4-5.0); ANION GAP 7 (8-16); CALCIUM 7.8 mg/dL (8.5-10.1); CO2 28 mmol/L (21-32); GLUCOSE,RANDOM 120 mg/dL (74-106); MAGNESIUM 1.9 mg/dL (1.8-2.4)
[2016-10-02 06:32] LABS: ALK PHOS 67 U/L (45-117); BILIRUBIN,TOTAL 0.7 mg/dL (0.2-1.0); CREATININE 0.5 mg/dL (0.55-1.02); PHOSPHOROUS 2.8 mg/dL (2.5-4.9); SGOT/AST 17 U/L (15-37); SGPT/ALT 15 U/L (12-78); TOT PROT 5.8 g/dl (6.4-8.2)
[2016-10-02] MEDS: INSULIN SLIDING SCALE (NOVOLOG) 1 VIAL SQ SCH (06:48)
--- NOTE | 2016-10-02 08:42 | PN ---
Teaching Attending Note Name of Resident: Leigh Brennan ATTENDING PHYSICIAN STATEMENT I saw and evaluated the patient. I reviewed the resident's note and discussed the case with the resident. I agree with the resident's findings and plan as documented. SUBJECTIVE: Patient is in ICU. Patient is lying in bed comfortably, no further bleed noted today. No shortness of breath. No chest pain , no nausea or vomiting. Uses cane at home. OBJECTIVE: Vital Signs Temperature 98.2 F 10/02/16 06:00 Pulse Rate 85 10/02/16 06:00 Respiratory Rate 22 10/02/16 06:00 Blood Pressure 151/60 10/02/16 06:00 O2 Sat by Pulse Oximetry (%) 100 10/02/16 07:15 GENERAL: The patient is awake, alert, and fully oriented, in no acute distress. HEAD: Normal with no signs of trauma. EYES: PERRL, extraocular movements intact, sclera anicteric, conjunctiva clear. ENT: Ears normal, oropharynx clear without exudates, moist mucous membranes. NECK: Trachea midline, full range of motion, supple. LUNGS: Breath sounds equal, clear to auscultation bilaterally, no wheezes, no crackles, no accessory muscle use. HEART: Regular rate and rhythm, S1, S2 positive, DELFINA 2/6 , no rub or gallop. ABDOMEN: Soft, nontender, nondistended, normoactive bowel sounds, no guarding, no rebound, no masses appreciated. EXTREMITIES: 2+ pulses, cold, no edema. NEUROLOGICAL: Cranial nerves II through XII grossly intact. Normal speech, gait not observed. PSYCH: Normal mood, normal affect. CBCD WBC 9.5 K/mm3 (4.0-10.0) 10/02/16 05:05 RBC 3.98 M/mm3 (3.60-5.2) 10/02/16 05:05 Hgb 11.9 GM/dL (10.7-15.3) 10/02/16 05:05 Hct 35.5 % (32.4-45.2) 10/02/16 05:05 MCV 89.1 fl (80-96) 10/02/16 05:05 MCHC 33.6 g/dl (32.0-36.0) 10/02/16 05:05 RDW 13.3 % (11.6-15.6) 10/02/16 05:05 Plt Count 166 K/MM3 (134-434) 10/02/16 05:05 MPV 8.9 fl (7.5-11.1) 10/02/16 05:05 CMP Sodium 144 mmol/L (136-145) 10/02/16 05:05 Potassium 3.5 mmol/L (3.5-5.1) 10/02/16 05:05 Chloride 109 mmol/L (98-107) H 10/02/16 05:05 Carbon Dioxide 28 mmol/L (21-32) 10/02/16 05:05 Anion Gap 7 (8-16) L 10/02/16 05:05 BUN 4 mg/dL (7-18) L D 10/02/16 05:05 Creatinine 0.5 mg/dL (0.55-1.02) L 10/02/16 05:05 Creat Clearance w eGFR > 60 (>60) 10/02/16 05:05 Random Glucose 120 mg/dL (74-106) H D 10/02/16 05:05 Calcium 7.8 mg/dL (8.5-10.1) L 10/02/16 05:05 Total Bilirubin 0.7 mg/dL (0.2-1.0) 10/02/16 05:05 AST 17 U/L (15-37) D 10/02/16 05:05 ALT 15 U/L (12-78) 10/02/16 05:05 Alkaline Phosphatase 67 U/L (45-117) 10/02/16 05:05 Total Protein 5.8 g/dl (6.4-8.2) L 10/02/16 05:05 Albumin 2.7 g/dl (3.4-5.0) L 10/02/16 05:05 CARDIAC ENZYMES Creatine Kinase 69 IU/L (26-192) 10/01/16 22:30 Troponin I < 0.02 ng/ml (0.00-0.05) 10/01/16 22:30 Current Medications Generic Name Dose Route Start Last Admin Trade Name Freq PRN Reason Stop Dose Admin Acetaminophen 650 mg 10/01/16 15:00 Tylenol - PO Q4H PRN FEVER OR PAIN Chlorhexidine Gluconate 1 applic 10/01/16 22:00 10/01/16 21:33 Hibiclens For Decolonization - TP 1 applic HS JACINTO Administration Dextrose/Sodium Chloride 1,000 mls @ 100 mls/hr 10/01/16 19:28 10/01/16 19:30 D5-Ns - IV 100 mls/hr ASDIR JACINTO Administration Insulin Aspart 1 vial 10/01/16 16:30 10/02/16 06:48 Novolog Vial Sliding Scale - SQ Not Given BIDI [facility] Protocol Mupirocin 1 applic 10/01/16 22:00 10/01/16 21:32 Bactroban Ointment (For Decolonization) - NS 10/06/16 09:59 1 applic BID JACINTO Administration Pantoprazole Sodium 40 mg 10/01/16 17:15 10/01/16 18:06 Protonix 40mg Ivpb (Pre-Docked) IVPB 40 mg DAILY JACINTO Administration Medication Instructions Recorded Donepezil HCl 23 mg PO DAILY 09/30/16 ASSESSMENT AND PLAN: Patient is a 76 y/o Lady with h/o MS who presented with Lower GI bleed BRBPR. # Acute Lower GI bleed : Possible due AVM . in ICU for close monitoring. S/p transfusion of one unit hgb 10.5--11.[address] Hussein possible endoscopy/colonoscopy ; clear liquid diet; Protonix drip continue , IV D5. Normal Saline , Continue to monitor vitals, repeat H/H in am. CTA ordered. avoid any blood thinning products. s/p 5 mg of PO Vit K . Further w/u /procedures will be depending on CTA results. # Hx of MS . f/u as out pt DVT PX : SCds
[2016-10-02] MEDS ORDERED: PHYTONADIONE 10 MG/1 ML AMP IM ONE (09:15)
[2016-10-02] MEDS: PANTOPRAZOLE SODIUM 40 MG/100 ML PRE-DOCKED IVPB SCH (10:01)
[2016-10-02] MEDS: MUPIROCIN 2% TOPICAL OINTMENT FOR DECOLONIZATION NS SCH ×2 (10:05→21:03)
--- NOTE | 2016-10-02 10:20 | MSN ---
Progress Note (SOAP) - Subjective Chief Complaint: Rectal Bleeding History of Present Illness: Patient recieved a unit of PRBC overnight. Patient was examined at bedside. She was compliant and in no apparent distress - Current Medications Current Medications: Active Medications Acetaminophen (Tylenol -) 650 mg PO Q4H PRN PRN Reason: FEVER OR PAIN Chlorhexidine Gluconate (Hibiclens For Decolonization -) 1 applic TP HS [facility] Last Admin: 10/01/16 21:33 Dose: 1 applic Dextrose/Sodium Chloride (D5-Ns -) 1,000 mls @ 100 mls/hr IV ASDIR [facility] Last Admin: 10/01/16 19:30 Dose: 100 mls/hr Mupirocin (Bactroban Ointment (For Decolonization) -) 1 applic NS BID [facility] Stop: 10/06/16 09:59 Last Admin: 10/02/16 10:05 Dose: 1 applic Pantoprazole Sodium (Protonix 40mg Ivpb (Pre-Docked)) 40 mg IVPB DAILY [facility] Last Admin: 10/02/16 10:01 Dose: 40 mg - Objective Vital Signs: Vital Signs Temperature 98.2 F 10/02/16 06:00 Pulse Rate 94 H 10/02/16 08:00 Respiratory Rate 18 10/02/16 08:00 Blood Pressure 161/69 10/02/16 08:00 O2 Sat by Pulse Oximetry (%) 100 10/02/16 07:15 Constitutional: Yes: Well Nourished, No Distress, Calm Eyes: Yes: WNL, Conjunctiva Clear, EOM Intact, PERRL HENT: Yes: WNL, Atraumatic, Normocephalic Neck: Yes: WNL, Supple, Trachea Midline Cardiovascular: Yes: WNL, Regular Rate and Rhythm, S1, S2 Respiratory: Yes: WNL, Regular, CTA Bilaterally Gastrointestinal: Yes: WNL, Normal Bowel Sounds, Soft, Melena, Rectal Bleeding. No: Tenderness, Tenderness, Epigastrium, Tenderness, Rebound ...Rectal Exam: Yes: Guaiac Positive Musculoskeletal: Yes: WNL Extremities: Yes: WNL Peripheral Pulses WNL: Yes Peripheral Pulses: Left Radial: 2+, Right Radial: 2+, Left Doralis Pedis: 2+, Right Dorsalis Pedis: 2+ Edema: No Integumentary: Yes: WNL Wound/Incision: Yes: Clean/Dry, Well Approximated Neurological: Yes: WNL, Alert, Oriented, Weakness, Other (MS) ...Motor Strength: Yes: WNL Psychiatric: Yes: WNL, Alert, Oriented Labs Lab Results: CBC, BMP 10/02/16 05:05 10/02/16 05:05 Assessment/Plan Arina Garcia is a 76 year old female w/ Hx of multiple sclerosis who presented for dark red rectal bleeding. Patient admitted to telemetry for further monitoring and management Lower/Upper GI Bleed -NPO -Protonix IV -IV Normal Saline -Stool occult -Positive -GI consult - Most likely Diverticulilar bleed -Transfusion Given monitor CBC for repeat transfusion -CT Angiogram/Abdomen-No active bleed -Continue to monitor vitals -Stool test for H. Pylori -Endoscopy -Colonoscopy Multiple Sclerosis -No home meds -PT Prophylaxis -SCD's for DVTs
--- NOTE | 2016-10-02 11:14 | PN ---
Physical Exam: SUBJECTIVE: Patient seen and examined. She doesn't have any complaints. She denies abdominal pain, N/V, diarrhea, constipation, dizziness, fever, chills. OBJECTIVE: Vital Signs Period Temp Pulse Resp BP Sys/Yen Pulse Ox Last 24 Hr 97.2 F-98.4 F 83-106 16-22 109-169/39-97 99-100 GENERAL: The patient is awake, alert, and fully oriented, in no acute distress. HEAD: Normal with no signs of trauma. EYES: PERRL, extraocular movements intact, sclera anicteric, conjunctiva clear. No ptosis. ENT: Ears normal, nares patent, oropharynx clear without exudates, moist mucous membranes. NECK: Trachea midline, full range of motion, supple. LUNGS: Breath sounds equal, clear to auscultation bilaterally, no wheezes, no crackles, no accessory muscle use. HEART: Regular rate and rhythm, S1, S2 without murmur, rub or gallop. ABDOMEN: Soft, nontender, nondistended, normoactive bowel sounds, no guarding, no rebound, no hepatosplenomegaly, no masses. EXTREMITIES: 2+ pulses, cold, well-perfused, no edema. NEUROLOGICAL: Cranial nerves II through XII grossly intact. Normal speech, gait not observed. Uses cane at home. PSYCH: Normal mood, normal affect. SKIN: Warm, dry, normal turgor, no rashes or lesions noted Laboratory Results - last 24 hr 10/01/16 10/01/16 10/01/16 09:00 11:17 15:00 WBC 10.9 H 8.7 RBC 3.78 3.61 Hgb 11.3 10.5 L Hct 33.8 32.2 L MCV 89.6 89.4 MCHC 33.3 32.5 RDW 13.4 13.7 Plt Count 167 162 MPV 8.6 8.9 INR Sodium Potassium Chloride Carbon Dioxide Anion Gap BUN Creatinine Creat Clearance w eGFR POC Glucometer Random Glucose Calcium Phosphorus Magnesium Total Bilirubin AST ALT Alkaline Phosphatase Creatine Kinase Troponin I B-Natriuretic Peptide Total Protein Albumin Crossmatch See Detail 10/01/16 10/01/16 10/01/16 16:15 22:30 22:30 WBC 8.2 RBC 3.96 Hgb 11.8 D Hct 35.6 MCV 89.8 MCHC 33.0 RDW 13.6 Plt Count 144 MPV 8.7 INR Sodium 145 Potassium 3.3 L D Chloride 109 H Carbon Dioxide 28 Anion Gap 8 BUN 8 Creatinine 0.6 Creat Clearance w eGFR POC Glucometer 128.51078 Random Glucose 93 Calcium 7.8 L Phosphorus 2.2 L Magnesium 2.0 Total Bilirubin AST ALT Alkaline Phosphatase Creatine Kinase 69 Troponin I < 0.02 B-Natriuretic Peptide 234.59 Total Protein Albumin Crossmatch 10/02/16 10/02/16 10/02/16 01:39 05:05 05:05 WBC 9.3 9.5 RBC 4.39 3.98 Hgb 12.9 11.9 Hct 39.1 35.5 MCV 89.0 89.1 MCHC 33.0 33.6 RDW 13.3 13.3 Plt Count 158 166 MPV 9.1 8.9 INR 1.20 H Sodium Potassium Chloride Carbon Dioxide Anion Gap BUN Creatinine Creat Clearance w eGFR POC Glucometer Random Glucose Calcium Phosphorus Magnesium Total Bilirubin AST ALT Alkaline Phosphatase Creatine Kinase Troponin I B-Natriuretic Peptide Total Protein Albumin Crossmatch 10/02/16 10/02/16 05:05 06:43 WBC RBC Hgb Hct MCV MCHC RDW Plt Count MPV INR Sodium 144 Potassium 3.5 Chloride 109 H Carbon Dioxide 28 Anion Gap 7 L BUN 4 L D Creatinine 0.5 L Creat Clearance w eGFR > 60 POC Glucometer 138.62542 Random Glucose 120 H D Calcium 7.8 L Phosphorus 2.8 D Magnesium 1.9 Total Bilirubin 0.7 AST 17 D ALT 15 Alkaline Phosphatase 67 Creatine Kinase Troponin I B-Natriuretic Peptide Total Protein 5.8 L Albumin 2.7 L Crossmatch Active Medications Generic Name Dose Route Start Last Admin Trade Name Freq PRN Reason Stop Dose Admin Acetaminophen 650 mg 10/01/16 15:00 Tylenol - PO Q4H PRN FEVER OR PAIN Chlorhexidine Gluconate 1 applic 10/01/16 22:00 10/01/16 21:33 Hibiclens For Decolonization - TP 1 applic HS [facility] Administration Dextrose/Sodium Chloride 1,000 mls @ 100 mls/hr 10/01/16 19:28 10/01/16 19:30 D5-Ns - IV 100 mls/hr ASDIR [facility] Administration Mupirocin 1 applic 10/01/16 22:00 10/02/16 10:05 Bactroban Ointment (For Decolonization) - NS 10/06/16 09:59 1 applic BID [facility] Administration Pantoprazole Sodium 40 mg 10/01/16 17:15 10/02/16 10:01 Protonix 40mg Ivpb (Pre-Docked) IVPB 40 mg DAILY [facility] Administration ASSESSMENT/PLAN: Patient is a 76 year old female with a PMHx of multiple sclerosis who presents for rectal bleeding for a day, x4. The pt had one more episode of bleeding from her rectum in ED. Patient admitted to ICU for further monitoring and management. Lower GI Bleed: -3 episodes of melena overnight -pt was transfused 1u PRBC -CTA abdomen/pelvis done, no visible source of bleeding, waiting for official report -probably diverticular bleeding or AV malformation. No history of bleeding in the past. Last colonoscopy was WNL 3 years ago. -clear liquid diet -changed Protonix drip to 40 mg IV Daily -d5NS -monitor vitals and mor episodes of melena -GI consulted Multiple Sclerosis; -the pt states that was diagnosed in 1960s and she describes flare up as being tired. She has never had any neurological deficits. She doesn't have a neurologist. Only PCP Dr. Varghese. -on no home medications -No acute exacerbation now Dementia: -Donepezil 23 mg DAILY F/E/N -D5NS -Electrolytes wnl -Clear liquid Prophylaxis -SCD's for DVT -Protonix for GI Disposition -The pt is in ICU Problem List - Problems (1) GIB (gastrointestinal bleeding) Code(s): K92.2 - GASTROINTESTINAL HEMORRHAGE, UNSPECIFIED Visit type - Emergency Visit Emergency Visit: Yes ED Registration Date: 10/01/16 Care time: The patient presented to the Emergency Department on the above date and was hospitalized for further evaluation of their emergent condition. - New Patient This patient is new to me today: No - Critical Care Critical Care patient: Yes Total Critical Care Time (in minutes): 35 Critical Care Statement: The care of this patient involved high complexity decision making to prevent further life threatening deterioration of the patient 's condition and/or to evalute & treat vital organ system(s) failure or risk of failure.
[2016-10-02] MEDS ORDERED: DONEPEZIL HCL 10 MG TABLET (FP) PO SCH (11:15)
[2016-10-02] MEDS: DEXTROSE 5%-NORMAL SALINE 1,000 ML IV SCH ×2 (11:16→21:03)
--- NOTE | 2016-10-02 12:23 | PN ---
Teaching Attending Note Name of Resident: Rancho Gutierrez ATTENDING PHYSICIAN STATEMENT I saw and evaluated the patient. I reviewed the resident's note and discussed the case with the resident. I agree with the resident's findings and plan as documented. SUBJECTIVE: Pt seen and examined in the ICU. Had small dark stool this AM. No shortness of breath or chest pain. No lightheadness or dizziness. No nausea or vomiting. OBJECTIVE: Last Vital Signs Temp Pulse Resp BP Pulse Ox 98.4 F 90 18 130/45 100 10/02/16 10:00 10/02/16 12:00 10/02/16 12:00 10/02/16 12:00 10/02/16 07:15 Intake & Output 09/29/16 09/30/16 10/01/16 10/02/16 23:59 23:59 23:59 23:59 Intake Total 1387.5 1050 Output Total 120 Balance 1267.5 1050 Weight 130 lb 146 lb 4.8 oz 147 lb 0.773 oz Gen: NAD at rest Heart: RRR Lung: decreased breath sounds at the bases Abd: soft, nontender Ext: no edema CBC, BMP 10/02/16 05:05 10/02/16 05:05 Active Medications Acetaminophen (Tylenol -) 650 mg PO Q4H PRN PRN Reason: FEVER OR PAIN Chlorhexidine Gluconate (Hibiclens For Decolonization -) 1 applic TP HS [facility] Last Admin: 10/01/16 21:33 Dose: 1 applic Donepezil HCl (Aricept -) 23 mg PO DAILY [facility] Dextrose/Sodium Chloride (D5-Ns -) 1,000 mls @ 100 mls/hr IV ASDIR [facility] Last Admin: 10/02/16 11:16 Dose: 100 mls/hr Mupirocin (Bactroban Ointment (For Decolonization) -) 1 applic NS BID [facility] Stop: 10/06/16 09:59 Last Admin: 10/02/16 10:05 Dose: 1 applic Pantoprazole Sodium (Protonix 40mg Ivpb (Pre-Docked)) 40 mg IVPB DAILY [facility] Last Admin: 10/02/16 10:01 Dose: 40 mg ASSESSMENT AND PLAN: GI Bleed Anemia Diverticulosis Multiple Sclerosis - monitor H/H - transfuse as needed - protonix - GI f/u regarding possible endoscopy/colonoscopy - IVF - DVT prophylaxis
--- NOTE | 2016-10-02 13:55 | PN ---
Physical Exam: SUBJECTIVE: Patient seen and examined at bedside. Dark BM x3 and transfused 1 U PRBC overnight with appropriate response. No new complaints. She states that she feels fine. Denies CP, MCKINNEY, SOB, palpitation, N/V, or abdominal pain. OBJECTIVE: Vital Signs Period Temp Pulse Resp BP Sys/Yen Pulse Ox Last 24 Hr 97.2 F-98.4 F 83-102 16-22 121-169/39-97 100-100 GENERAL: Awake, alert, in no acute distress. HEAD: Normal with no signs of trauma. EYES: Pupils equal, round and reactive to light, sclera anicteric, conjunctiva clear. No lid lag. EARS, NOSE, THROAT: Ears normal, nares patent,Moist mucous membranes. NECK: supple without lymphadenopathy, JVD, or masses. LUNGS: Breath diminished at bases bilaterally. No wheezes, and no crackles. No accessory muscle use. HEART: Tachycardic, normal S1 and S2 without murmur, rub or gallop. ABDOMEN: Soft, nontender, not distended, normoactive bowel sounds, no guarding, no rebound, no masses. No hepatomegaly or splenomegaly. MUSCULOSKELETAL: Normal range of motion at all joints. No bony deformities or tenderness. No CVA tenderness. UPPER EXTREMITIES: 2+ pulses, warm, well-perfused. No cyanosis. No clubbing. no edema. LOWER EXTREMITIES: 2+ pulses, warm, well-perfused. No calf tenderness. trace edema. NEUROLOGICAL: AAOx2 PSYCHIATRIC: Cooperative. Good eye contact. Appropriate mood and affect. SKIN: Warm, dry, normal turgor, no rashes or lesions noted. Laboratory Results - last 24 hr 10/01/16 10/01/16 10/01/16 09:00 15:00 16:15 WBC 8.7 RBC 3.61 Hgb 10.5 L Hct 32.2 L MCV 89.4 MCHC 32.5 RDW 13.7 Plt Count 162 MPV 8.9 INR Sodium Potassium Chloride Carbon Dioxide Anion Gap BUN Creatinine Creat Clearance w eGFR POC Glucometer 128.57671 Random Glucose Calcium Phosphorus Magnesium Total Bilirubin AST ALT Alkaline Phosphatase Creatine Kinase Troponin I B-Natriuretic Peptide Total Protein Albumin Crossmatch See Detail 10/01/16 10/01/16 10/02/16 22:30 22:30 01:39 WBC 8.2 9.3 RBC 3.96 4.39 Hgb 11.8 D 12.9 Hct 35.6 39.1 MCV 89.8 89.0 MCHC 33.0 33.0 RDW 13.6 13.3 Plt Count 144 158 MPV 8.7 9.1 INR Sodium 145 Potassium 3.3 L D Chloride 109 H Carbon Dioxide 28 Anion Gap 8 BUN 8 Creatinine 0.6 Creat Clearance w eGFR POC Glucometer Random Glucose 93 Calcium 7.8 L Phosphorus 2.2 L Magnesium 2.0 Total Bilirubin AST ALT Alkaline Phosphatase Creatine Kinase 69 Troponin I < 0.02 B-Natriuretic Peptide 234.59 Total Protein Albumin Crossmatch 10/02/16 10/02/16 10/02/16 05:05 05:05 05:05 WBC 9.5 RBC 3.98 Hgb 11.9 Hct 35.5 MCV 89.1 MCHC 33.6 RDW 13.3 Plt Count 166 MPV 8.9 INR 1.20 H Sodium 144 Potassium 3.5 Chloride 109 H Carbon Dioxide 28 Anion Gap 7 L BUN 4 L D Creatinine 0.5 L Creat Clearance w eGFR > 60 POC Glucometer Random Glucose 120 H D Calcium 7.8 L Phosphorus 2.8 D Magnesium 1.9 Total Bilirubin 0.7 AST 17 D ALT 15 Alkaline Phosphatase 67 Creatine Kinase Troponin I B-Natriuretic Peptide Total Protein 5.8 L Albumin 2.7 L Crossmatch 10/02/16 06:43 WBC RBC Hgb Hct MCV MCHC RDW Plt Count MPV INR Sodium Potassium Chloride Carbon Dioxide Anion Gap BUN Creatinine Creat Clearance w eGFR POC Glucometer 138.64074 Random Glucose Calcium Phosphorus Magnesium Total Bilirubin AST ALT Alkaline Phosphatase Creatine Kinase Troponin I B-Natriuretic Peptide Total Protein Albumin Crossmatch Active Medications Generic Name Dose Route Start Last Admin Trade Name Freq PRN Reason Stop Dose Admin Acetaminophen 650 mg 10/01/16 15:00 Tylenol - PO Q4H PRN FEVER OR PAIN Chlorhexidine Gluconate 1 applic 10/01/16 22:00 10/01/16 21:33 Hibiclens For Decolonization - TP 1 applic HS [facility] Administration Donepezil HCl 23 mg 10/02/16 11:15 Aricept - PO DAILY [facility] Dextrose/Sodium Chloride 1,000 mls @ 100 mls/hr 10/01/16 19:28 10/02/16 11:16 D5-Ns - IV 100 mls/hr ASDIR [facility] Administration Mupirocin 1 applic 10/01/16 22:00 10/02/16 10:05 Bactroban Ointment (For Decolonization) - NS 10/06/16 09:59 1 applic BID [facility] Administration Pantoprazole Sodium 40 mg 10/01/16 17:15 10/02/16 10:01 Protonix 40mg Ivpb (Pre-Docked) IVPB 40 mg DAILY [facility] Administration ASSESSMENT/PLAN: 76 year old female with a PMHx of multiple sclerosis who presents for BRBPR. Patient transferred to ICU for close monitoring. GI: * Transfused 1 unit PRBC - Hgb 10.5--->11.9 * Seen by GI Dr. Hussein possible endoscopy/colonoscopy * Advanced to clear liquid diet. * Protonix drip * IV Normal Saline * Continue to monitor vitals * repeat H/H Multiple Sclerosis * On no home medications * No acute exacerbation F/E/N * On protonix drip * Electrolytes wnl * Advanced to clears Prophylaxis: * SCD's for DVT * Protonix drip for GI Visit type - Emergency Visit Emergency Visit: Yes ED Registration Date: 10/01/16 Care time: The patient presented to the Emergency Department on the above date and was hospitalized for further evaluation of their emergent condition. - New Patient This patient is new to me today: No - Critical Care Critical Care patient: Yes Total Critical Care Time (in minutes): 30 Critical Care Statement: The care of this patient involved high complexity decision making to prevent further life threatening deterioration of the patient 's condition and/or to evalute & treat vital organ system(s) failure or risk of failure.
[2016-10-02] MEDS: DONEPEZIL HCL 10 MG TABLET (FP) PO SCH (21:03)
[2016-10-02] MEDS: CHLORHEXIDINE GLUCONATE 4% CLEANSER FOR DECOLONIZATION TP SCH (21:04)
--- NOTE | 2016-10-02 23:05 | PN ---
GI Progress Note Subjective: Resting comfortably, no complaints No new bleeding - Objective Vital Signs: Vital Signs Temperature 98.2 F 10/02/16 20:00 Pulse Rate 69 10/02/16 22:00 Respiratory Rate 18 10/02/16 22:00 Blood Pressure 139/45 10/02/16 22:00 O2 Sat by Pulse Oximetry (%) 100 10/02/16 22:00 Constitutional: Calm, Thin Neck: Yes: Supple Cardiovascular: Yes: Regular Rate and Rhythm Respiratory: Yes: CTA Bilaterally ...Auscultate: Yes: Normoactive Bowel Sounds ...Palpate: Yes: Soft. No: Tenderness Labs: CBC, BMP 10/02/16 05:05 10/02/16 05:05 INR, PTT INR 1.20 (0.82-1.09) H 10/02/16 05:05 Assessment/Plan No significant bleeding x 24 hours Prep for colon Friday If Neg, will do EGD Cont PPI for now Clear liquid diet
[2016-10-03 06:05] LABS: MCHC 33.7 g/dl (32.0-36.0); MEAN CELL VOLUME 88.8 fl (80-96); MEAN PLT VOLUME 8.7 fl (7.5-11.1); PLATELET COUNT 151 K/MM3 (134-434); RDW 13.6 % (11.6-15.6); WHITE BLOOD COUNT 8.6 K/mm3 (4.0-10.0)
[2016-10-03 06:33] LABS: CALCIUM 7.3 mg/dL (8.5-10.1); CREATININE 0.6 mg/dL (0.55-1.02); MAGNESIUM 1.8 mg/dL (1.8-2.4); PHOSPHOROUS 2.4 mg/dL (2.5-4.9)
[2016-10-03 06:41] LABS: THYROID STIMULATING HORMONE 1.7 uIU/ml (0.358-3.74)
--- NOTE | 2016-10-03 08:28 | PN ---
Teaching Attending Note Name of Resident: Leigh Brennan ATTENDING PHYSICIAN STATEMENT I saw and evaluated the patient. I reviewed the resident's note and discussed the case with the resident. I agree with the resident's findings and plan as documented. SUBJECTIVE: Patient is comfortable with no acute distress , going for colonoscopy in am. OBJECTIVE: Vital Signs Temperature 98.3 F 10/03/16 05:55 Pulse Rate 84 10/03/16 08:00 Respiratory Rate 16 10/03/16 08:00 Blood Pressure 118/46 10/03/16 08:00 O2 Sat by Pulse Oximetry (%) 100 10/02/16 22:00 GENERAL: The patient is awake, alert, and fully oriented, in no acute distress. HEAD: Normal with no signs of trauma. EYES: PERRL, extraocular movements intact, sclera anicteric, conjunctiva clear. ENT: Ears normal, oropharynx clear without exudates, moist mucous membranes. NECK: Trachea midline, full range of motion, supple. LUNGS: Breath sounds equal, clear to auscultation bilaterally, no wheezes, no crackles, no accessory muscle use. HEART: Regular rate and rhythm, S1, S2 positive, DELFINA 2/6 , no rub or gallop. ABDOMEN: Soft, nontender, nondistended, normoactive bowel sounds, no guarding, no rebound, no masses appreciated. EXTREMITIES: 2+ pulses, cold, no edema. NEUROLOGICAL: Cranial nerves II through XII grossly intact. Normal speech, gait not observed. PSYCH: Normal mood, normal affect. CBCD WBC 8.6 K/mm3 (4.0-10.0) 10/03/16 05:05 RBC 3.77 M/mm3 (3.60-5.2) 10/03/16 05:05 Hgb 11.3 GM/dL (10.7-15.3) 10/03/16 05:05 Hct 33.5 % (32.4-45.2) 10/03/16 05:05 MCV 88.8 fl (80-96) 10/03/16 05:05 MCHC 33.7 g/dl (32.0-36.0) 10/03/16 05:05 RDW 13.6 % (11.6-15.6) 10/03/16 05:05 Plt Count 151 K/MM3 (134-434) 10/03/16 05:05 MPV 8.7 fl (7.5-11.1) 10/03/16 05:05 CMP Sodium 147 mmol/L (136-145) H 10/03/16 05:05 Potassium 3.2 mmol/L (3.5-5.1) L 10/03/16 05:05 Chloride 111 mmol/L (98-107) H 10/03/16 05:05 Carbon Dioxide 30 mmol/L (21-32) 10/03/16 05:05 Anion Gap 6 (8-16) L 10/03/16 05:05 BUN 2 mg/dL (7-18) L* D 10/03/16 05:05 Creatinine 0.6 mg/dL (0.55-1.02) 10/03/16 05:05 Creat Clearance w eGFR > 60 (>60) 10/02/16 05:05 Random Glucose 96 mg/dL (74-106) 10/03/16 05:05 Calcium 7.3 mg/dL (8.5-10.1) L 10/03/16 05:05 Total Bilirubin 0.7 mg/dL (0.2-1.0) 10/02/16 05:05 AST 17 U/L (15-37) D 10/02/16 05:05 ALT 15 U/L (12-78) 10/02/16 05:05 Alkaline Phosphatase 67 U/L (45-117) 10/02/16 05:05 Total Protein 5.8 g/dl (6.4-8.2) L 10/02/16 05:05 Albumin 2.7 g/dl (3.4-5.0) L 10/02/16 05:05 CARDIAC ENZYMES Creatine Kinase 69 IU/L (26-192) 10/01/16 22:30 Troponin I < 0.02 ng/ml (0.00-0.05) 10/01/16 22:30 ASSESSMENT AND PLAN: Patient is a 76 year old female with a PMHx of multiple sclerosis who presents for rectal bleeding for a day, x4. The pt had one more episode of bleeding from her rectum in ED. Patient admitted to ICU for further monitoring and management. # Lower GI Bleed: possible due to Diverticular bleed vs AVM. Npo after midnight for colonoscopy if negative then EGD by # Hx of Multiple Sclerosis; the pt states that was diagnosed in 1960s # Hypokalemia:KCl 40 meq once # Dementia:Donepezil 23 mg DAILY DVT Prophylaxis SCD's -Protonix for GI
[2016-10-03] MEDS: DONEPEZIL HCL 10 MG TABLET (FP) PO SCH ×2 (10:06→22:27)
[2016-10-03] MEDS: PANTOPRAZOLE SODIUM 40 MG/100 ML PRE-DOCKED IVPB SCH (10:06)
[2016-10-03] MEDS: MUPIROCIN 2% TOPICAL OINTMENT FOR DECOLONIZATION NS SCH ×2 (10:06→22:27)
--- NOTE | 2016-10-03 11:23 | MSN ---
Progress Note (SOAP) - Subjective Chief Complaint: Rectal Bleeding History of Present Illness: Patient was examined at bedside. She is feeling well, and has no complaints at this time. Denies any general complaints and specific abdomen complaints. Patient asked about the plan for her and was informed of a colonoscopy for tomorrow. - Current Medications Current Medications: Active Medications Acetaminophen (Tylenol -) 650 mg PO Q4H PRN PRN Reason: FEVER OR PAIN Chlorhexidine Gluconate (Hibiclens For Decolonization -) 1 applic TP HS [facility] Last Admin: 10/02/16 21:04 Dose: 1 applic Donepezil HCl (Aricept -) 10 mg PO BID [facility] Last Admin: 10/03/16 10:06 Dose: 10 mg Mupirocin (Bactroban Ointment (For Decolonization) -) 1 applic NS BID [facility] Stop: 10/06/16 09:59 Last Admin: 10/03/16 10:06 Dose: 1 applic Pantoprazole Sodium (Protonix 40mg Ivpb (Pre-Docked)) 40 mg IVPB DAILY [facility] Last Admin: 10/03/16 10:06 Dose: 40 mg - Objective Vital Signs: Vital Signs Temperature 98.6 F 10/03/16 10:00 Pulse Rate 84 10/03/16 08:00 Respiratory Rate 16 10/03/16 08:00 Blood Pressure 118/46 10/03/16 08:00 O2 Sat by Pulse Oximetry (%) 100 10/03/16 09:10 Constitutional: Yes: Well Nourished, No Distress, Calm Eyes: Yes: WNL, Conjunctiva Clear, EOM Intact HENT: Yes: WNL, Atraumatic, Normocephalic Neck: Yes: WNL, Supple, Trachea Midline Respiratory: Yes: WNL, Regular, CTA Bilaterally Gastrointestinal: Yes: Normal Bowel Sounds, Soft ...Rectal Exam: Yes: Guaiac Positive Labs Lab Results: CBC, BMP 10/03/16 05:05 10/03/16 05:05 Assessment/Plan Arina Garcia is a 76 year old female w/ Hx of multiple sclerosis who presented for dark red rectal bleeding. Patient admitted to telemetry for further monitoring and management Lower/Upper GI Bleed -Clear liquid diet -Protonix IV -IV Normal Saline -Stool occult -Positive -GI consult - Most likely Diverticulilar bleed- Colonoscopy mariah. follow up with EGD if Neg -Transfusion Given monitor CBC for repeat transfusion -CT Angiogram/Abdomen-No active bleed -Continue to monitor vitals Multiple Sclerosis -No home meds -PT Prophylaxis -SCD's for DVTs
--- NOTE | 2016-10-03 12:41 | PN ---
Teaching Attending Note Name of Resident: Rancho Gutierrez ATTENDING PHYSICIAN STATEMENT I saw and evaluated the patient. I reviewed the resident's note and discussed the case with the resident. I agree with the resident's findings and plan as documented. SUBJECTIVE: Pt seen and examined in the ICU. Small pasty maroonish bowel movement but no parag bleeding. No abdominal pain, nausea or vomiting. No shortness of breath or chest pain. OBJECTIVE: Last Vital Signs Temp Pulse Resp BP Pulse Ox 98.6 F 88 16 143/51 100 10/03/16 10:00 10/03/16 12:00 10/03/16 12:00 10/03/16 12:00 10/03/16 09:10 Intake & Output 09/30/16 10/01/16 10/02/16 10/03/16 23:59 23:59 23:59 23:59 Intake Total 1387.5 3250 1100 Output Total 120 Balance 1267.5 3250 1100 Weight 130 lb 146 lb 4.8 oz 147 lb 0.773 oz 146 lb 13.246 oz Gen: NAD at rest Heart: RRR Lung: decreased breath sounds at the bases Abd: soft, nontender Ext: no edema CBC, BMP 10/03/16 05:05 10/03/16 05:05 Active Medications Acetaminophen (Tylenol -) 650 mg PO Q4H PRN PRN Reason: FEVER OR PAIN Chlorhexidine Gluconate (Hibiclens For Decolonization -) 1 applic TP HS [facility] Last Admin: 10/02/16 21:04 Dose: 1 applic Donepezil HCl (Aricept -) 10 mg PO BID [facility] Last Admin: 10/03/16 10:06 Dose: 10 mg Mupirocin (Bactroban Ointment (For Decolonization) -) 1 applic NS BID [facility] Stop: 10/06/16 09:59 Last Admin: 10/03/16 10:06 Dose: 1 applic Pantoprazole Sodium (Protonix 40mg Ivpb (Pre-Docked)) 40 mg IVPB DAILY [facility] Last Admin: 10/03/16 10:06 Dose: 40 mg ASSESSMENT AND PLAN: GI Bleed Anemia Diverticulosis Multiple Sclerosis - monitor H/H - transfuse as needed - protonix - GI for possible endoscopy/colonoscopy - clear liquids - DVT prophylaxis
[2016-10-03] MEDS ORDERED: POTASSIUM CHLORIDE 40 MEQ/30 ML UNIT DOSE CUP PO ONE (13:14)
--- NOTE | 2016-10-03 15:27 | PN ---
Physical Exam: SUBJECTIVE: Patient seen and examined at bedside. transfused 1 U PRBC yesterday and H/H mckinney remained stabe No overnight events. No new complaints. She states that she feels fine. Denies CP, MCKINNEY, SOB, palpitation, N/V, or abdominal pain. OBJECTIVE: Vital Signs Period Temp Pulse Resp BP Sys/Yen Pulse Ox Last 24 Hr 97.6 F-98.6 F 69-98 16-20 109-160/43-92 100-100 GENERAL: Awake, alert, in no acute distress. HEAD: Normal with no signs of trauma. EYES: Pupils equal, round and reactive to light, sclera anicteric, conjunctiva clear. No lid lag. EARS, NOSE, THROAT: Ears normal, nares patent,Moist mucous membranes. NECK: supple without lymphadenopathy, JVD, or masses. LUNGS: Breath diminished at bases bilaterally. No wheezes, and no crackles. No accessory muscle use. HEART:RRR, normal S1 and S2 without murmur, rub or gallop. ABDOMEN: Soft, nontender, not distended, normoactive bowel sounds, no guarding, no rebound, no masses. No hepatomegaly or splenomegaly. MUSCULOSKELETAL: Normal range of motion at all joints. No bony deformities or tenderness. No CVA tenderness. UPPER EXTREMITIES: 2+ pulses, warm, well-perfused. No cyanosis. No clubbing. no edema. LOWER EXTREMITIES: 2+ pulses, warm, well-perfused. No calf tenderness. trace edema. NEUROLOGICAL: AAOx2 PSYCHIATRIC: Cooperative. Good eye contact. Appropriate mood and affect. SKIN: Warm, dry, normal turgor, no rashes or lesions noted. Laboratory Results - last 24 hr 10/03/16 10/03/16 05:05 05:05 WBC 8.6 RBC 3.77 Hgb 11.3 Hct 33.5 MCV 88.8 MCHC 33.7 RDW 13.6 Plt Count 151 MPV 8.7 Sodium 147 H Potassium 3.2 L Chloride 111 H Carbon Dioxide 30 Anion Gap 6 L BUN 2 L* D Creatinine 0.6 Random Glucose 96 Calcium 7.3 L Phosphorus 2.4 L Magnesium 1.8 TSH 1.70 Active Medications Generic Name Dose Route Start Last Admin Trade Name Freq PRN Reason Stop Dose Admin Acetaminophen 650 mg 10/01/16 15:00 Tylenol - PO Q4H PRN FEVER OR PAIN Chlorhexidine Gluconate 1 applic 10/01/16 22:00 10/02/16 21:04 Hibiclens For Decolonization - TP 1 applic HS JACINTO Administration Donepezil HCl 10 mg 10/02/16 22:00 10/03/16 10:06 Aricept - PO 10 mg BID JACINTO Administration Mupirocin 1 applic 10/01/16 22:00 10/03/16 10:06 Bactroban Ointment (For Decolonization) - NS 10/06/16 09:59 1 applic BID JACINTO Administration Pantoprazole Sodium 40 mg 10/01/16 17:15 10/03/16 10:06 Protonix 40mg Ivpb (Pre-Docked) IVPB 40 mg DAILY JACINTO Administration ASSESSMENT/PLAN: 76 year old female with a PMHx of multiple sclerosis who presents for BRBPR. Patient transferred to ICU for close monitoring. GI: * Transfused 1 unit PRBC - Hgb 10.5--->11.9 (10/01/15) and has remained stable. * Seen by GI Dr. Hussein possible endoscopy/colonoscopy scheduled for Friday. * Advanced to clear liquid diet. * Continue Protonix drip * Continue to monitor vitals * repeat H/H Multiple Sclerosis * On no home medications * No acute exacerbation F/E/N * Continue protonix drip * Electrolytes wnl * Advanced to clears Prophylaxis: * SCD's for DVT * Protonix drip for GI Visit type - Emergency Visit Emergency Visit: Yes ED Registration Date: 10/01/16 Care time: The patient presented to the Emergency Department on the above date and was hospitalized for further evaluation of their emergent condition. - New Patient This patient is new to me today: No - Critical Care Critical Care patient: Yes Total Critical Care Time (in minutes): 33 Critical Care Statement: The care of this patient involved high complexity decision making to prevent further life threatening deterioration of the patient 's condition and/or to evalute & treat vital organ system(s) failure or risk of failure.
--- NOTE | 2016-10-03 15:39 | PN ---
Physical Exam: SUBJECTIVE: Patient seen and examined. She doesn't have any complaints. She denies any BM overnight. OBJECTIVE: Vital Signs Period Temp Pulse Resp BP Sys/Yen Pulse Ox Last 24 Hr 97.6 F-98.6 F 69-98 16-20 109-160/43-92 100-100 GENERAL: The patient is awake, alert, and fully oriented, in no acute distress. HEAD: Normal with no signs of trauma. EYES: PERRL, extraocular movements intact, sclera anicteric, conjunctiva clear. No ptosis. ENT: Ears normal, nares patent, oropharynx clear without exudates, moist mucous membranes. NECK: Trachea midline, full range of motion, supple. LUNGS: Breath sounds equal, clear to auscultation bilaterally, no wheezes, no crackles, no accessory muscle use. HEART: Regular rate and rhythm, S1, S2 without murmur, rub or gallop. ABDOMEN: Soft, nontender, nondistended, normoactive bowel sounds, no guarding, no rebound, no hepatosplenomegaly, no masses. EXTREMITIES: 2+ pulses, warm, well-perfused, no edema. NEUROLOGICAL: Cranial nerves II through XII grossly intact. Normal speech, gait not observed. PSYCH: Normal mood, normal affect. SKIN: Warm, dry, normal turgor, no rashes or lesions noted Laboratory Results - last 24 hr 10/03/16 10/03/16 05:05 05:05 WBC 8.6 RBC 3.77 Hgb 11.3 Hct 33.5 MCV 88.8 MCHC 33.7 RDW 13.6 Plt Count 151 MPV 8.7 Sodium 147 H Potassium 3.2 L Chloride 111 H Carbon Dioxide 30 Anion Gap 6 L BUN 2 L* D Creatinine 0.6 Random Glucose 96 Calcium 7.3 L Phosphorus 2.4 L Magnesium 1.8 TSH 1.70 Active Medications Generic Name Dose Route Start Last Admin Trade Name Freq PRN Reason Stop Dose Admin Acetaminophen 650 mg 10/01/16 15:00 Tylenol - PO Q4H PRN FEVER OR PAIN Chlorhexidine Gluconate 1 applic 10/01/16 22:00 10/02/16 21:04 Hibiclens For Decolonization - TP 1 applic HS JACINTO Administration Donepezil HCl 10 mg 10/02/16 22:00 10/03/16 10:06 Aricept - PO 10 mg BID JACINTO Administration Mupirocin 1 applic 10/01/16 22:00 10/03/16 10:06 Bactroban Ointment (For Decolonization) - NS 10/06/16 09:59 1 applic BID JACINTO Administration Pantoprazole Sodium 40 mg 10/01/16 17:15 10/03/16 10:06 Protonix 40mg Ivpb (Pre-Docked) IVPB 40 mg DAILY JACINTO Administration ASSESSMENT/PLAN: Patient is a 76 year old female with a PMHx of multiple sclerosis who presents for rectal bleeding for a day, x4. The pt had one more episode of bleeding from her rectum in ED. Patient admitted to ICU for further monitoring and management. Lower GI Bleed: -no episodes of melena overnight -colonoscopy tomorrow if negative will have EGD -probably diverticular bleeding or AV malformation. No history of bleeding in the past. Last colonoscopy was WNL 3 years ago. -clear liquid diet -changed Protonix drip to 40 mg IV Daily -d5NS -monitor vitals and mor episodes of melena -GI consulted -CBC in AM, Hg stable 11.3 from 11.8 yesterday, no need for transfusion now -VS stable Multiple Sclerosis; -the pt states that was diagnosed in 1960s and she describes flare up as being tired. She has never had any neurological deficits. She doesn't have a neurologist. Only PCP Dr. Varghese. -on no home medications -No acute exacerbation now Hypokalemia: -KCl 40 meq once Dementia: -Donepezil 23 mg DAILY F/E/N -D5NS -Electrolytes wnl -Clear liquid Prophylaxis -SCD's for DVT -Protonix for GI Disposition -The pt is in ICU Problem List - Problems (1) GIB (gastrointestinal bleeding) Code(s): K92.2 - GASTROINTESTINAL HEMORRHAGE, UNSPECIFIED Visit type - Emergency Visit Emergency Visit: Yes ED Registration Date: 10/01/16 Care time: The patient presented to the Emergency Department on the above date and was hospitalized for further evaluation of their emergent condition. - New Patient This patient is new to me today: No - Critical Care Critical Care patient: Yes Total Critical Care Time (in minutes): 40 Critical Care Statement: The care of this patient involved high complexity decision making to prevent further life threatening deterioration of the patient 's condition and/or to evalute & treat vital organ system(s) failure or risk of failure. - Discharge Referral Referred to [facility] No
[2016-10-03] MEDS ORDERED: ACETAMINOPHEN 325 MG TABLET (FP) PO PRN (17:33)
[2016-10-03] MEDS: MAGNESIUM CITRATE 300 ML BOTTLE PO SCH (18:48)
[2016-10-03] MEDS: SODIUM PHOSPHATE/NA BIPHOS 133 ML ENEMA PR SCH (18:48)
[2016-10-03] MEDS: CHLORHEXIDINE GLUCONATE 4% CLEANSER FOR DECOLONIZATION TP SCH (22:27)
[2016-10-04] MEDS: MAGNESIUM CITRATE 300 ML BOTTLE PO SCH ×2 (01:19→04:15)
[2016-10-04 06:15] LABS: MCH 30.4 pg (25.7-33.7); MCHC 34.1 g/dl (32.0-36.0); MEAN CELL VOLUME 89.2 fl (80-96); PLATELET COUNT 170 K/MM3 (134-434); RDW 13.6 % (11.6-15.6); WHITE BLOOD COUNT 8.2 K/mm3 (4.0-10.0)
[2016-10-04 06:47] LABS: CALCIUM 7.6 mg/dL (8.5-10.1); CREATININE 0.6 mg/dL (0.55-1.02); MAGNESIUM 2.3 mg/dL (1.8-2.4); PHOSPHOROUS 2.6 mg/dL (2.5-4.9)
[2016-10-04] MEDS: DEXTROSE 5%-0.45% SALINE 1,000 ML IV SCH (08:41)
--- NOTE | 2016-10-04 08:46 | MSN ---
Progress Note (SOAP) - Subjective Chief Complaint: Rectal Bleeding History of Present Illness: Patient was observed at bedside. She was Alert and Oriented and very compliant. She is feeling well other than a few aches and pains though she says that is her baseline. Patient has had a normal bowel movement today, she said it was soft and did not look at it. Patient is in no distress and has been on liquid diet and has a colonoscopy. - Current Medications Current Medications: Active Medications Acetaminophen (Tylenol -) 650 mg PO Q4H PRN PRN Reason: FEVER OR PAIN Chlorhexidine Gluconate (Hibiclens For Decolonization -) 1 applic TP HS [facility] Last Admin: 10/03/16 22:27 Dose: 1 applic Donepezil HCl (Aricept -) 10 mg PO BID [facility] Last Admin: 10/03/16 22:27 Dose: 10 mg Dextrose/Sodium Chloride (D5-1/2ns -) 1,000 mls @ 75 mls/hr IV ASDIR [facility] Mupirocin (Bactroban Ointment (For Decolonization) -) 1 applic NS BID [facility] Stop: 10/06/16 09:59 Last Admin: 10/03/16 22:27 Dose: 1 applic Pantoprazole Sodium (Protonix 40mg Ivpb (Pre-Docked)) 40 mg IVPB DAILY [facility] - Objective Vital Signs: Vital Signs Temperature 98.2 F 10/04/16 06:00 Pulse Rate 88 10/04/16 08:00 Respiratory Rate 17 10/04/16 08:00 Blood Pressure 122/94 10/04/16 08:00 O2 Sat by Pulse Oximetry (%) 100 10/03/16 21:00 Constitutional: Yes: Well Nourished, No Distress, Calm Eyes: Yes: WNL, Conjunctiva Clear, EOM Intact HENT: Yes: WNL, Atraumatic, Normocephalic Neck: Yes: WNL, Supple, Trachea Midline Cardiovascular: Yes: WNL, Regular Rate and Rhythm, S1, S2. No: Gallop, Murmur, Rub Respiratory: Yes: Regular, Rales, Wheezes Gastrointestinal: Yes: WNL, Normal Bowel Sounds Musculoskeletal: Yes: WNL Extremities: Yes: WNL Peripheral Pulses WNL: Yes Peripheral Pulses: Left Radial: 2+, Right Radial: 2+, Left Doralis Pedis: 2+, Right Dorsalis Pedis: 2+ Edema: No Integumentary: Yes: WNL Neurological: Yes: WNL, Alert, Oriented Psychiatric: Yes: WNL, Alert, Oriented Labs Lab Results: CBC, BMP 10/04/16 05:35 10/04/16 05:35 Assessment/Plan Arina Garcia is a 76 year old female w/ Hx of multiple sclerosis who presented for dark red rectal bleeding. Patient admitted to telemetry for further monitoring and management Lower/Upper GI Bleed -Clear liquid diet -Protonix IV -IV Normal Saline -Stool occult -Positive -GI consult - Most likely Diverticulilar bleed- Colonoscopy mariah. follow up with EGD if Neg -Transfusion Given monitor CBC for repeat transfusion -CT Angiogram/Abdomen-No active bleed -Continue to monitor vitals Multiple Sclerosis -No home meds -PT Prophylaxis -SCD's for DVTs
[2016-10-04] MEDS: DONEPEZIL HCL 10 MG TABLET (FP) PO SCH ×2 (09:41→22:18)
[2016-10-04] MEDS: MUPIROCIN 2% TOPICAL OINTMENT FOR DECOLONIZATION NS SCH ×2 (09:42→20:59)
[2016-10-04] MEDS: PANTOPRAZOLE SODIUM 40 MG/100 ML PRE-DOCKED IVPB SCH (09:45)
--- NOTE | 2016-10-04 09:59 | PN ---
Physical Exam: SUBJECTIVE: Patient seen and examined at bedside. No overnight events. No new complaints. Denies CP, MCKINNEY, SOB, abd. pain, n/v. OBJECTIVE: Vital Signs Period Temp Pulse Resp BP Sys/Yen Pulse Ox Last 24 Hr 98.2 F-98.6 F 78-104 16-20 114-166/34-98 100 GENERAL: Awake, alert, in no acute distress. HEAD: Normal with no signs of trauma. EYES: Pupils equal, round and reactive to light, sclera anicteric, conjunctiva clear. No lid lag. EARS, NOSE, THROAT: Ears normal, nares patent,Moist mucous membranes. NECK: supple without lymphadenopathy, JVD, or masses. LUNGS: Breath diminished at bases bilaterally. No wheezes, and no crackles. No accessory muscle use. HEART:RRR, normal S1 and S2 without murmur, rub or gallop. ABDOMEN: Soft, nontender, not distended, normoactive bowel sounds, no guarding, no rebound, no masses. No hepatomegaly or splenomegaly. MUSCULOSKELETAL: Normal range of motion at all joints. No bony deformities or tenderness. No CVA tenderness. UPPER EXTREMITIES: 2+ pulses, warm, well-perfused. No cyanosis. No clubbing. no edema. LOWER EXTREMITIES: 2+ pulses, warm, well-perfused. No calf tenderness. trace edema. NEUROLOGICAL: AAOx2 PSYCHIATRIC: Cooperative. Good eye contact. Appropriate mood and affect. SKIN: Warm, dry, normal turgor, no rashes or lesions noted. Laboratory Results - last 24 hr 10/04/16 10/04/16 05:35 05:35 WBC 8.2 RBC 3.97 Hgb 12.1 Hct 35.4 MCV 89.2 MCHC 34.1 RDW 13.6 Plt Count 170 MPV 9.0 Sodium 147 H Potassium 3.7 Chloride 109 H Carbon Dioxide 31 Anion Gap 7 L BUN 2 L* Creatinine 0.6 Random Glucose 91 Calcium 7.6 L Phosphorus 2.6 Magnesium 2.3 D Active Medications Generic Name Dose Route Start Last Admin Trade Name Freq PRN Reason Stop Dose Admin Acetaminophen 650 mg 10/03/16 17:33 Tylenol - PO Q4H PRN FEVER OR PAIN Chlorhexidine Gluconate 1 applic 10/03/16 22:00 10/03/16 22:27 Hibiclens For Decolonization - TP 1 applic HS JACINTO Administration Donepezil HCl 10 mg 10/03/16 22:00 10/04/16 09:41 Aricept - PO Not Given BID JACINTO Dextrose/Sodium Chloride 1,000 mls @ 75 mls/hr 10/04/16 08:15 10/04/16 08:41 D5-1/2ns - IV 75 mls/hr ASDIR JACINTO Administration Mupirocin 1 applic 10/03/16 22:00 10/04/16 09:42 Bactroban Ointment (For Decolonization) - NS 10/06/16 09:59 1 applic BID JACINTO Administration Pantoprazole Sodium 40 mg 10/04/16 10:00 10/04/16 09:45 Protonix 40mg Ivpb (Pre-Docked) IVPB 40 mg DAILY JACINTO Administration ASSESSMENT/PLAN: 76 year old female with a PMHx of multiple sclerosis who presents for BRBPR. Patient transferred to ICU for close monitoring. GI: * Colonoscopy today. * no further bloody BM's * H/H stable. Multiple Sclerosis * On no home medications * No acute exacerbation F/E/N * D5 1/2 NS @ 75 ml/hr * Electrolytes wnl * Advanced to clears Prophylaxis: * SCD's for DVT * Protonix drip for GI Dispo: Transfer to med/surg Visit type - Emergency Visit Emergency Visit: Yes ED Registration Date: 10/01/16 Care time: The patient presented to the Emergency Department on the above date and was hospitalized for further evaluation of their emergent condition. - New Patient This patient is new to me today: No - Critical Care Critical Care patient: Yes Total Critical Care Time (in minutes): 30 Critical Care Statement: The care of this patient involved high complexity decision making to prevent further life threatening deterioration of the patient 's condition and/or to evalute & treat vital organ system(s) failure or risk of failure.
--- NOTE | 2016-10-04 13:26 | PN ---
Teaching Attending Note Name of Resident: Rancho Gutierrez ATTENDING PHYSICIAN STATEMENT I saw and evaluated the patient. I reviewed the resident's note and discussed the case with the resident. I agree with the resident's findings and plan as documented. SUBJECTIVE: Patient seen and examined in the ICU. No occult bleeding noted overnight. No abdominal pain, nausea or vomiting. No shortness of breath or chest pain. For endoscopic evaluation. OBJECTIVE: Intake & Output 10/01/16 10/02/16 10/03/16 10/04/16 23:59 23:59 23:59 23:59 Intake Total 1387.5 3250 2300 600 Output Total 120 Balance 1267.5 3250 2300 600 Weight 146 lb 4.8 oz 147 lb 0.773 oz 146 lb 13.246 oz 146 lb 12.8 oz Last Vital Signs Temp Pulse Resp BP Pulse Ox 98.7 F 102 H 17 127/49 100 10/04/16 10:00 10/04/16 11:16 10/04/16 11:16 10/04/16 11:16 10/04/16 09:00 Active Medications Acetaminophen (Tylenol -) 650 mg PO Q4H PRN PRN Reason: FEVER OR PAIN Chlorhexidine Gluconate (Hibiclens For Decolonization -) 1 applic TP HS [facility] Last Admin: 10/03/16 22:27 Dose: 1 applic Donepezil HCl (Aricept -) 10 mg PO BID [facility] Last Admin: 10/04/16 09:41 Dose: Not Given Dextrose/Sodium Chloride (D5-1/2ns -) 1,000 mls @ 75 mls/hr IV ASDIR [facility] Last Admin: 10/04/16 08:41 Dose: 75 mls/hr Mupirocin (Bactroban Ointment (For Decolonization) -) 1 applic NS BID [facility] Stop: 10/06/16 09:59 Last Admin: 10/04/16 09:42 Dose: 1 applic Pantoprazole Sodium (Protonix 40mg Ivpb (Pre-Docked)) 40 mg IVPB DAILY [facility] Last Admin: 10/04/16 09:45 Dose: 40 mg Gen: Awake and alert, NAD Heart: RRR Lung: Clear Abd: soft, nontender Ext: no edema Laboratory Results - last 24 hr 10/04/16 10/04/16 05:35 05:35 WBC 8.2 RBC 3.97 Hgb 12.1 Hct 35.4 MCV 89.2 MCHC 34.1 RDW 13.6 Plt Count 170 MPV 9.0 Sodium 147 H Potassium 3.7 Chloride 109 H Carbon Dioxide 31 Anion Gap 7 L BUN 2 L* Creatinine 0.6 Random Glucose 91 Calcium 7.6 L Phosphorus 2.6 Magnesium 2.3 D ASSESSMENT AND PLAN: GI Bleed Anemia Diverticulosis Multiple Sclerosis - monitor H/H - Normal transfusion thresholds - protonix - GI for endoscopy - NPO - DVT prophylaxis Dr Jones CCTime 35"
[2016-10-04] MEDS ORDERED: LIDOCAINE HCL/PF 1% SDV 5ML VIAL ONE (15:33)
[2016-10-04] MEDS ORDERED: PROPOFOL 20 ML ONE ×2 (15:34)
[2016-10-04] MEDS ORDERED: ACETAMINOPHEN 1000 MG/100 ML VIAL (NON FORMULARY) IVPB ONE (20:26)
--- NOTE | 2016-10-04 20:30 | PN ---
Physical Exam: SUBJECTIVE: Patient seen and examined Lying in bed comfortably going for colonoscopy today. OBJECTIVE: Vital Signs Period Temp Pulse Resp BP Sys/Yen Pulse Ox Last 24 Hr 97.4 F-99.0 F 78-102 15-21 122-153/34-94 100-100 GENERAL: The patient is awake, alert, and fully oriented, in no acute distress. HEAD: Normal with no signs of trauma. EYES: PERRL, extraocular movements intact, sclera anicteric, conjunctiva clear. No ptosis. ENT: Ears normal, nares patent, oropharynx clear without exudates, moist mucous membranes. NECK: Trachea midline, full range of motion, supple. LUNGS: Breath sounds equal, clear to auscultation bilaterally, no wheezes, no crackles, no accessory muscle use. HEART: Regular rate and rhythm, S1, S2 without murmur, rub or gallop. ABDOMEN: Soft, NT,ND, normoactive bowel sounds, no guarding, no rebound, no hepatosplenomegaly, no masses. EXTREMITIES: 2+ pulses, warm, well-perfused, no edema. NEUROLOGICAL: Cranial nerves II through XII grossly intact. Normal speech, gait not observed. PSYCH: Normal mood, normal affect. SKIN: Warm, dry, normal turgor, no rashes or lesions noted Laboratory Results - last 24 hr 10/04/16 10/04/16 05:35 05:35 WBC 8.2 RBC 3.97 Hgb 12.1 Hct 35.4 MCV 89.2 MCHC 34.1 RDW 13.6 Plt Count 170 MPV 9.0 Sodium 147 H Potassium 3.7 Chloride 109 H Carbon Dioxide 31 Anion Gap 7 L BUN 2 L* Creatinine 0.6 Random Glucose 91 Calcium 7.6 L Phosphorus 2.6 Magnesium 2.3 D Active Medications Generic Name Dose Route Start Last Admin Trade Name Freq PRN Reason Stop Dose Admin Acetaminophen 1,000 mg 10/04/16 20:26 Ofirmev Injection - IVPB 10/04/16 20:27 ONCE ONE Chlorhexidine Gluconate 1 applic 10/03/16 22:00 10/03/16 22:27 Hibiclens For Decolonization - TP 1 applic HS JACINTO Administration Donepezil HCl 10 mg 10/03/16 22:00 10/04/16 09:41 Aricept - PO Not Given BID JACINTO Fentanyl 50 mcg 10/04/16 20:27 Sublimaze Injection - IVPUSH 10/04/16 20:28 ONCE ONE Dextrose/Sodium Chloride 1,000 mls @ 75 mls/hr 10/04/16 08:15 10/04/16 08:41 D5-1/2ns - IV 75 mls/hr ASDIR JACINTO Administration Mupirocin 1 applic 10/03/16 22:00 10/04/16 09:42 Bactroban Ointment (For Decolonization) - NS 10/06/16 09:59 1 applic BID JACINTO Administration Pantoprazole Sodium 40 mg 10/04/16 10:00 10/04/16 09:45 Protonix 40mg Ivpb (Pre-Docked) IVPB 40 mg DAILY JACINTO Administration ASSESSMENT/PLAN: Patient is a 76 year old female with a PMHx of multiple sclerosis who presents for rectal bleeding for a day, x4. The pt had one more episode of bleeding from her rectum in ED. Patient admitted to ICU for further monitoring and management. # Lower GI Bleed: Patient had colonoscopy today if negative EGD by , no further bloody BM's ,H/H stable. # Hx of Multiple Sclerosis; the pt states that was diagnosed in 1960s # Hypokalemia:KCl 40 meq once # Dementia:Donepezil 23 mg DAILY DVT Prophylaxis SCD's -Protonix for GI Visit type - Emergency Visit Emergency Visit: Yes ED Registration Date: 10/01/16 Care time: The patient presented to the Emergency Department on the above date and was hospitalized for further evaluation of their emergent condition. - New Patient This patient is new to me today: No - Critical Care Critical Care patient: No
[2016-10-04] MEDS: CHLORHEXIDINE GLUCONATE 4% CLEANSER FOR DECOLONIZATION TP SCH (21:00)
[2016-10-04] MEDS ORDERED: ACETAMINOPHEN 1000 MG/100 ML VIAL (NON FORMULARY) IVPB PRN (22:19)
--- NOTE | 2016-10-04 22:28 | PN ---
Progress Note (short form) - Note Progress Note: PULMONARY / CRITICAL CARE MEDICINE: Evaluated pt for fever and tachycardia. She is s/p upper and lower scope today to investigate source of GIB. EGD was done in the OR with MAC. Intra-op and immediate post-op course was uncomplicated. She appears septic now. Her abdominal exam is completely unremarkable so perf is not likely. She has a new oxygen requirement and has coarse rhonchi on the left. CXR shows a new large KRYSTAL and LLL opacity likely an aspiration pneumonitis or pneumonia. -Monitor respiratory status closely -Cultures -Will start Unasyn which is adequate coverage for aspiration but would escalate to Vanc/Zosyn if condition worsens -Fever control Continue ICU level of care Additional CCT 40' Isidro Butterfield Pulm/CC PRESTIDIGITATOR
[2016-10-04] MEDS ORDERED: AMPICILLIN NA/SULBACTAM NA 100 ML IVPB ONE (22:30)
[2016-10-04] MEDS ORDERED: AMPICILLIN NA/SULBACTAM NA 100 ML IVPB SCH (22:30)
[2016-10-05] MEDS ORDERED: AMPICILLIN NA/SULBACTAM NA 100 ML IVPB SCH (03:00)
[2016-10-05 06:51] LABS: CALCIUM 7.7 mg/dL (8.5-10.1); CREATININE 0.8 mg/dL (0.55-1.02)
--- NOTE | 2016-10-05 07:36 | PN ---
Progress Note, Physician Chief Complaint: ID Full note dictated Currently afebrile Denies SOB Nurses say she was couphing - Current Medication List Current Medications: Active Medications Acetaminophen (Ofirmev Injection -) 1,000 mg IVPB Q6H PRN PRN Reason: FEVER OR PAIN Stop: 10/05/16 16:20 Last Admin: 10/05/16 03:19 Dose: 1,000 mg Chlorhexidine Gluconate (Hibiclens For Decolonization -) 1 applic TP HS [facility] Last Admin: 10/04/16 21:00 Dose: 1 applic Donepezil HCl (Aricept -) 10 mg PO BID [facility] Last Admin: 10/04/16 22:18 Dose: Not Given Dextrose/Sodium Chloride (D5-1/2ns -) 1,000 mls @ 75 mls/hr IV ASDIR [facility] Last Admin: 10/04/16 08:41 Dose: 75 mls/hr Ampicillin Sodium/Sulbactam Sodium (Unasyn 1.5 Gm (Pre-Docked)) 100 mls @ 200 mls/hr IVPB Q6H-IV [facility] Last Admin: 10/05/16 03:15 Dose: 200 mls/hr Mupirocin (Bactroban Ointment (For Decolonization) -) 1 applic NS BID [facility] Stop: 10/06/16 09:59 Last Admin: 10/04/16 20:59 Dose: 1 applic Pantoprazole Sodium (Protonix 40mg Ivpb (Pre-Docked)) 40 mg IVPB DAILY [facility] Last Admin: 10/04/16 09:45 Dose: 40 mg - Objective Vital Signs: Vital Signs Temperature 98.4 F 10/05/16 06:02 Pulse Rate 114 H 10/05/16 06:02 Respiratory Rate 18 10/05/16 06:02 Blood Pressure 154/69 10/05/16 06:02 O2 Sat by Pulse Oximetry (%) 94 L 10/04/16 21:01 Constitutional: Yes: Well Nourished, No Distress Neck: Yes: WNL, Supple Cardiovascular: Yes: Regular Rate and Rhythm, S1, S2. No: Murmur Respiratory: Yes: Other (Rales LLL) Gastrointestinal: Yes: Soft, Tenderness Edema: No Labs: CBC, BMP 10/05/16 05:15 10/05/16 05:15 INR, PTT INR 1.20 (0.82-1.09) H 10/02/16 05:05 Problem List - Problems (1) GIB (gastrointestinal bleeding) Code(s): K92.2 - GASTROINTESTINAL HEMORRHAGE, UNSPECIFIED (2) Aspiration pneumonia Code(s): J69.0 - PNEUMONITIS DUE TO INHALATION OF FOOD AND VOMIT (3) Multiple sclerosis Code(s): G35 - MULTIPLE SCLEROSIS Assessment/Plan Microbiology 10/01/16 22:16 Nasopharyngeal Swab Influenza Types A,B Antigen ([facility]ERRA) - Final 10/01/16 22:16 Nasopharyngeal Swab - Final 10/01/16 22:16 Nasopharyngeal Swab Respiratory Virus Panel - Preliminary Assessment Post EGD it looks like she aspirated with extensive infiltrate LLL though clinically does not look in any distress. Rales noted LLL c/s infiltrate Plan "Cover " accordingly with Prema 4.5 grs q8H Holly HDEZ
[2016-10-05 09:50] LABS: URINE APPEARANCE CLEAR; URINE BILIRUBIN NEGATIVE (NEGATIVE); URINE BLOOD NEGATIVE (NEGATIVE); URINE COLOR STRAW; URINE GLUCOSE (UA) NEGATIVE (NEGATIVE); URINE KETONE NEGATIVE (NEGATIVE); URINE NITRITE NEGATIVE (NEGATIVE); URINE PROTEIN NEGATIVE (NEGATIVE); URINE UROBILINOGEN NEGATIVE E.U./dl (0.2-1.0)
[2016-10-05 09:53] LABS: URINE LEUK ESTERASE TRACE (NEGATIVE)
[2016-10-05 09:56] LABS: GRANULAR CASTS 1 /lpf; URINE BACTERIA RARE /hpf (NONE SEEN); URINE MUCUS RARE; URINE RBC 1 /hpf (0-3); URINE WBC 6 /hpf (3-5)
--- NOTE | 2016-10-05 09:56 | CONS ---
DATE OF CONSULTATION: DATE OF DICTATION: 10/05/2016 HISTORY OF PRESENT ILLNESS: This is a 76-year-old female with a history of multiple sclerosis who I am asked to see in the ICU for pneumonia. She has a history of MS and was admitted to the hospital several days ago with chief complaint of rectal bleeding. According to the notes, her daughter found a small pool as what was described as bright red blood around her mother. She denied any abdominal pain initially, but subsequently was experiencing diffuse lower abdominal cramping, 6 out of 10 in severity according to the admitting notes. She was seen in consultation by Dr. Piper and underwent both an EGD and a colonoscopy late yesterday afternoon. According to the nursing staff, no obvious bleeding source was identified. Subsequently, however, she became increasingly lethargic with a low-grade temperature and coughing. A chest x-ray was obtained which showed a new infiltrate in the left side. She was given a dose of ampicillin/sulbactam, and I am asked to see her for further evaluation. At the current time, she is lethargic, but alert and in no acute distress. She denies any cough, pleuritic chest pain, chills, fever, or other localizing complaints. PAST MEDICAL HISTORY: Includes multiple sclerosis, status post hysterectomy. MEDICATIONS: Currently include Aricept and Protonix. ALLERGIES: None known. 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 She admitted to smoking, but she gave this up many years ago. She lives with her daughter. No recent travel. No history of alcohol or substance abuse FAMILY HISTORY: Reviewed and noncontributory. REVIEW OF SYSTEMS: Respiratory: No cough, hemoptysis, shortness of breath. Cardiac: No chest pain, palpitations syncope. Gastrointestinal: No abdominal pain, nausea, vomiting, blood per rectum, hematemesis. Genitourinary: No dysuria, hematuria, or urinary frequency. PHYSICAL EXAMINATION: General: She was an alert female in no acute distress. Vital signs: Her temperature was 98.4, pulse 114, blood pressure 154/69, respirations 18. Neck: Supple without adenopathy. Lungs: Clear to percussion with rales noted in the left base. Heart: S1, S2, regular rhythm without audible murmur. Tachycardic. Abdomen: Soft, nontender, without hepatosplenomegaly. No guarding or rebound. Extremities: Without clubbing, cyanosis, or edema noted. The white count today is pending. Hemoglobin 12.1, white count 8.2, platelets 170. INR 1.2. BUN 5, creatinine 0.8. Chest x-ray which was reviewed showed extensive infiltrate in the left lower lobe not present on x-ray of 116. ASSESSMENT: A 76-year-old female with history of multiple sclerosis seen in the intensive care unit following esophagogastroduodenoscopy and colonoscopy yesterday. No obvious bleeding source found. Subsequently, she developed left lower lobe infiltrate in the setting of recent sedation and endoscopy, consistent with probable aspiration pneumonia. She is not febrile, nor does she look to be in any respiratory or other distress. At this point, cultures have been already sent by the nurse practitioner. Would treat her empirically with piperacillin tazobactam 4.5 g every 8 hours. CINTIA WHITEHEAD M.D. [id number]
[2016-10-05 09:59] LABS: MCH 30.3 pg (25.7-33.7); MCHC 33.7 g/dl (32.0-36.0); MEAN PLT VOLUME 8.8 fl (7.5-11.1); PLATELET COUNT 145 K/MM3 (134-434); RDW 13.6 % (11.6-15.6); WHITE BLOOD COUNT 20.8 K/mm3 (4.0-10.0)
[2016-10-05] MEDS: DEXTROSE 5%-0.45% SALINE 1,000 ML IV SCH (10:08)
[2016-10-05] MEDS: DONEPEZIL HCL 10 MG TABLET (FP) PO SCH ×2 (10:08→21:31)
[2016-10-05] MEDS: MUPIROCIN 2% TOPICAL OINTMENT FOR DECOLONIZATION NS SCH ×2 (10:09→21:31)
[2016-10-05] MEDS: PIPERACILLIN/TAZOB 4.5 GM 100 ML IVPB SCH ×2 (10:09→17:42)
[2016-10-05] MEDS: PANTOPRAZOLE SODIUM 40 MG/100 ML PRE-DOCKED IVPB SCH (10:11)
[2016-10-05 10:56] LABS: ANISOCYTOSIS 1+; HYPOCHROMIA 1+; PLATELET COMMENT2 NO CLOTTING DETECTED; PLATELET ESTIMATE SLT DECREASED (NORMAL)
--- NOTE | 2016-10-05 12:17 | PN ---
Progress Note (short form) - Note Progress Note: PULMONARY/CCM Pt seen and examined in the ICU. No further bleeding. Events overnight noted. No obvious pathology reportedly on endoscopy/colonoscopy. Last Vital Signs Temp Pulse Resp BP Pulse Ox 98.4 F 89 17 99/38 94 L 10/05/16 06:02 10/05/16 08:00 10/05/16 08:00 10/05/16 08:00 10/04/16 21:01 Intake & Output 10/02/16 10/03/16 10/04/16 10/05/16 23:59 23:59 23:59 23:59 Intake Total 3250 2300 3295 1100 Output Total 200 Balance 3250 2300 3295 900 Weight 147 lb 0.773 oz 146 lb 13.246 oz 146 lb 12.8 oz 148 lb 5.938 oz Gen: NAD at rest Heart: RRR Lung: decreased breath sounds at the bases Abd: soft, nontender Ext: no edema CBC, BMP 10/05/16 09:35 10/05/16 05:15 Active Medications Acetaminophen (Ofirmev Injection -) 1,000 mg IVPB Q6H PRN PRN Reason: FEVER OR PAIN Stop: 10/05/16 16:20 Last Admin: 10/05/16 03:19 Dose: 1,000 mg Chlorhexidine Gluconate (Hibiclens For Decolonization -) 1 applic TP HS [facility] Last Admin: 10/04/16 21:00 Dose: 1 applic Donepezil HCl (Aricept -) 10 mg PO BID [facility] Last Admin: 10/05/16 10:08 Dose: 10 mg Dextrose/Sodium Chloride (D5-1/2ns -) 1,000 mls @ 75 mls/hr IV ASDIR [facility] Last Admin: 10/05/16 10:08 Dose: 75 mls/hr Piperacillin Sod/Tazobactam Sod (Zosyn 4.5gm Ivpb (Pre-Docked)) 100 mls @ 200 mls/hr IVPB Q8H-IV [facility] Last Admin: 10/05/16 10:09 Dose: 200 mls/hr Mupirocin (Bactroban Ointment (For Decolonization) -) 1 applic NS BID [facility] Stop: 10/06/16 09:59 Last Admin: 10/05/16 10:09 Dose: 1 applic Pantoprazole Sodium (Protonix 40mg Ivpb (Pre-Docked)) 40 mg IVPB DAILY JACINTO Last Admin: 10/05/16 10:11 Dose: 40 mg A/P GI Bleed Anemia Diverticulosis Multiple Sclerosis Aspiration event - Pneumonia vs Pneumonitis - continue antibiotics - f/u cultures - monitor H/H - transfuse as needed - protonix - aspiration precautions - clear thickened liquids - DVT prophylaxis
--- NOTE | 2016-10-05 14:58 | PN ---
GI Progress Note Subjective: s/p EGD and colonoscopy, diverticulosis, no active bleeding overnight - Objective Vital Signs: Vital Signs Temperature 97.9 F 10/05/16 10:00 Pulse Rate 112 H 10/05/16 14:00 Respiratory Rate 23 10/05/16 14:00 Blood Pressure 135/48 10/05/16 14:00 O2 Sat by Pulse Oximetry (%) 94 L 10/04/16 21:01 Constitutional: Well Nourished Eyes: Yes: Conjunctiva Clear HENT: Yes: Atraumatic Neck: Yes: Supple Cardiovascular: Yes: Regular Rate and Rhythm Respiratory: Yes: CTA Bilaterally ...Palpate: Yes: Soft. No: Firm/Rigid, Guarding, Hepatomegaly, Mass, Pulsatile Mass, Splenomegaly, Tenderness, Tenderness, Epigastium Labs: CBC, BMP 10/05/16 09:35 10/05/16 05:15 INR, PTT INR 1.20 (0.82-1.09) H 10/02/16 05:05 Problem List - Problems (1) GIB (gastrointestinal bleeding) Assessment/Plan: most likely diverticular bleeding--resolved R> advance diet as toterated Code(s): K92.2 - GASTROINTESTINAL HEMORRHAGE, UNSPECIFIED
--- NOTE | 2016-10-05 19:10 | PN ---
Physical Exam: SUBJECTIVE: Patient seen and examined Patient is s/p Colonoscopy , no acute distress, no nausea or vomiting. Patient is coughing s/p EGD. OBJECTIVE: Vital Signs Period Temp Pulse Resp BP Sys/Yen Pulse Ox Last 24 Hr 97.9 F-99.0 F 89-128 17- 99-154/28-88 94 GENERAL: The patient is awake, alert, and fully oriented, in no acute distress. HEAD: Normal with no signs of trauma. EYES: PERRL, extraocular movements intact, sclera anicteric, conjunctiva clear. ENT: Ears normal, oropharynx clear without exudates, moist mucous membranes. NECK: Trachea midline, full range of motion, supple. LUNGS: decreased BS, rales LLL to auscultation , no wheezes, no crackles, no accessory muscle use. HEART: Regular rate and rhythm, S1, S2 without murmur, rub or gallop. ABDOMEN: Soft, NT,ND, normoactive bowel sounds, no guarding, no rebound, no hepatosplenomegaly, no masses. EXTREMITIES: 2+ pulses, warm, well-perfused, no edema. NEUROLOGICAL: Cranial nerves II through XII grossly intact. Normal speech, gait not observed. PSYCH: Normal mood, normal affect. SKIN: Warm, dry, normal turgor, no rashes or lesions noted Laboratory Results - last 24 hr 10/05/16 10/05/16 10/05/16 05:15 05:15 06:00 WBC Cancelled Corrected WBC (auto) Cancelled RBC Cancelled Hgb Cancelled Hct Cancelled MCV Cancelled MCHC Cancelled RDW Cancelled Plt Count Cancelled MPV Cancelled Add Manual Diff Cancelled Neutrophils % Cancelled Lymphocytes % Cancelled Monocytes % Cancelled Eosinophils % Cancelled Basophils % Cancelled Band Neutrophils Metamyelocytes Myelocytes Promyelocytes Nucleated RBCs Differential Comment Cancelled Hypersegmented Neuts Plasmacytoid Lymphs Reactive Lymphocytes Blast Cells Plasma Cells Smudge Cells Cancelled Other Cell Type Toxic Granulation Dohle Bodies Cassandra Rods Platelet Estimate Cancelled Platelet Comment Cancelled Normal RBC Morphology Cancelled RBC Morphology Cancelled Polychromasia Hypochromic-Microcytic Poikilocytosis Basophilic Stippling Anisocytosis Microcytosis Macrocytosis Spherocytes Siderocytes Sickle Cells Target Cells Tear Drop Cells Ovalocytes Stomatocytes Helmet Cells Wesley-Gap Bodies [place] Rings John Cells Acanthocytes (Spur) Rouleaux Fragmented RBCs Schistocytes Morphology Comment Sodium 143 Potassium 3.5 Chloride 103 Carbon Dioxide 29 Anion Gap 11 BUN 5 L D Creatinine 0.8 D Random Glucose 123 H D Calcium 7.7 L Urine Color Straw Urine Appearance Clear Urine pH 7.0 Ur Specific [place] 1.008 Urine Protein Negative Urine Glucose (UA) Negative Urine Ketones Negative Urine Blood Negative Urine Nitrite Negative Urine Bilirubin Negative Urine Urobilinogen Negative Ur Leukocyte Esterase Trace H Urine RBC 1 Urine WBC 6 Ur Epithelial Cells Rare Urine Bacteria Rare Granular Casts 1 Urine Mucus Rare Fluid Tot Cell Count 10/05/16 10/05/16 08:30 09:35 WBC Cancelled 20.8 H D Corrected WBC (auto) Cancelled RBC Cancelled 3.67 Hgb Cancelled 11.1 Hct Cancelled 33.0 MCV Cancelled 90.0 MCHC Cancelled 33.7 RDW Cancelled 13.6 Plt Count Cancelled 145 MPV Cancelled 8.8 Add Manual Diff Cancelled Neutrophils % Cancelled 65.0 Lymphocytes % Cancelled 14.0 D Monocytes % Cancelled 6.0 Eosinophils % Cancelled Basophils % Cancelled Band Neutrophils Cancelled 13.0 H Metamyelocytes Cancelled Myelocytes Cancelled Promyelocytes Cancelled Nucleated RBCs Cancelled Differential Comment Cancelled Hypersegmented Neuts Cancelled Plasmacytoid Lymphs Cancelled Reactive Lymphocytes Cancelled Blast Cells Cancelled Plasma Cells Cancelled Smudge Cells Cancelled Other Cell Type Cancelled Toxic Granulation Cancelled Dohle Bodies Cancelled Cassandra Rods Cancelled Platelet Estimate Cancelled Slt decreased Platelet Comment Cancelled No clotting detected Normal RBC Morphology Cancelled RBC Morphology Cancelled Polychromasia Cancelled Hypochromic-Microcytic Cancelled 1+ Poikilocytosis Cancelled Basophilic Stippling Cancelled Anisocytosis Cancelled 1+ Microcytosis Cancelled Macrocytosis Cancelled Spherocytes Cancelled Siderocytes Cancelled Sickle Cells Cancelled Target Cells Cancelled Tear Drop Cells Cancelled Ovalocytes Cancelled Stomatocytes Cancelled Helmet Cells Cancelled Wesley-Gap Bodies Cancelled Del[place] Rings Cancelled [place] Cells Cancelled Acanthocytes (Spur) Cancelled Rouleaux Cancelled Fragmented RBCs Cancelled Schistocytes Cancelled Morphology Comment Cancelled Sodium Potassium Chloride Carbon Dioxide Anion Gap BUN Creatinine Random Glucose Calcium Urine Color Urine Appearance Urine pH Ur Specific [place] Urine Protein Urine Glucose (UA) Urine Ketones Urine Blood Urine Nitrite Urine Bilirubin Urine Urobilinogen Ur Leukocyte Esterase Urine RBC Urine WBC Ur Epithelial Cells Urine Bacteria Granular Casts Urine Mucus Fluid Tot Cell Count Cancelled Active Medications Generic Name Dose Route Start Last Admin Trade Name Luis PRN Reason Stop Dose Admin Chlorhexidine Gluconate 1 applic 10/03/16 22:00 10/04/16 21:00 Hibiclens For Decolonization - TP 1 applic HS JACINTO Administration Donepezil HCl 10 mg 10/03/16 22:00 10/05/16 10:08 Aricept - PO 10 mg BID JACINTO Administration Dextrose/Sodium Chloride 1,000 mls @ 75 mls/hr 10/04/16 08:15 10/05/16 10:08 D5-1/2ns - IV 75 mls/hr ASDIR JACINTO Administration Piperacillin Sod/Tazobactam Sod 100 mls @ 200 mls/hr 10/05/16 10:00 10/05/16 17 :42 Zosyn 4.5gm Ivpb (Pre-Docked) IVPB 200 mls/hr Q8H-IV [facility] Administration Mupirocin 1 applic 10/03/16 22:00 10/05/16 10:09 Bactroban Ointment (For Decolonization) - NS 10/06/16 09:59 1 applic BID JACINTO Administration Pantoprazole Sodium 40 mg 10/04/16 10:00 10/05/16 10:11 Protonix 40mg Ivpb (Pre-Docked) IVPB 40 mg DAILY JACINTO Administration ASSESSMENT/PLAN: Patient is a 76 year old female with a PMHx of multiple sclerosis who presents for rectal bleeding for a day, x4. The pt had one more episode of bleeding from her rectum in ED. Patient admitted to ICU for further monitoring and management. # Acute cough s/p EGD most likely aspirated with Extensive infiltrate LLL , seen BY ID and was started on IV Antibiotic Zosyn. 4.5 grs q8H IV continue. # Lower GI Bleed: Patient had colonoscopy today if negative EGD by , no further bloody BM's ,H/H stable. # Hx of Multiple Sclerosis; the pt states that was diagnosed in 1960s # Hypokalemia:KCl 40 meq once # Dementia:Donepezil 23 mg DAILY DVT Prophylaxis SCD's -Protonix for GI Visit type - Emergency Visit Emergency Visit: Yes ED Registration Date: 10/01/16 Care time: The patient presented to the Emergency Department on the above date and was hospitalized for further evaluation of their emergent condition. - New Patient This patient is new to me today: No - Critical Care Critical Care patient: No
[2016-10-05] MEDS: CHLORHEXIDINE GLUCONATE 4% CLEANSER FOR DECOLONIZATION TP SCH (21:31)
[2016-10-06] MEDS: PIPERACILLIN/TAZOB 4.5 GM 100 ML IVPB SCH ×3 (01:41→17:15)
[2016-10-06 06:17] LABS: BASOPHIL 0.6 % (0-2.0); EOSINOPHIL 3.4 % (0-4.5); MCH 29.9 pg (25.7-33.7); MCHC 33.4 g/dl (32.0-36.0); MEAN CELL VOLUME 89.4 fl (80-96); MEAN PLT VOLUME 9.2 fl (7.5-11.1); PLATELET COUNT 165 K/MM3 (134-434); WHITE BLOOD COUNT 17.6 K/mm3 (4.0-10.0)
[2016-10-06 06:47] LABS: ALBUMIN 2.1 g/dl (3.4-5.0); ANION GAP 6 (8-16); CALCIUM 7.8 mg/dL (8.5-10.1); CO2 30 mmol/L (21-32); GLUCOSE,RANDOM 121 mg/dL (74-106); MAGNESIUM 2.1 mg/dL (1.8-2.4)
[2016-10-06 06:50] LABS: ALK PHOS 65 U/L (45-117); BILIRUBIN,TOTAL 0.4 mg/dL (0.2-1.0); CREATININE 0.6 mg/dL (0.55-1.02); PHOSPHOROUS 2.4 mg/dL (2.5-4.9); SGOT/AST 19 U/L (15-37); SGPT/ALT 19 U/L (12-78); TOT PROT 5.1 g/dl (6.4-8.2)
--- NOTE | 2016-10-06 07:38 | PN ---
Progress Note, Physician Chief Complaint: ID Seems to be making very little effort to move in the bed otherwise stable NO SOB Zosyn for PNA day 1 - Current Medication List Current Medications: Active Medications Chlorhexidine Gluconate (Hibiclens For Decolonization -) 1 applic TP HS [facility] Last Admin: 10/05/16 21:31 Dose: 1 applic Donepezil HCl (Aricept -) 10 mg PO BID [facility] Last Admin: 10/05/16 21:31 Dose: 10 mg Dextrose/Sodium Chloride (D5-1/2ns -) 1,000 mls @ 75 mls/hr IV ASDIR [facility] Last Admin: 10/05/16 10:08 Dose: 75 mls/hr Piperacillin Sod/Tazobactam Sod (Zosyn 4.5gm Ivpb (Pre-Docked)) 100 mls @ 200 mls/hr IVPB Q8H-IV [facility] Last Admin: 10/06/16 01:41 Dose: 200 mls/hr Mupirocin (Bactroban Ointment (For Decolonization) -) 1 applic NS BID [facility] Stop: 10/06/16 09:59 Last Admin: 10/05/16 21:31 Dose: 1 applic Pantoprazole Sodium (Protonix 40mg Ivpb (Pre-Docked)) 40 mg IVPB DAILY [facility] Last Admin: 10/05/16 10:11 Dose: 40 mg - Objective Vital Signs: Vital Signs Temperature 98.9 F 10/06/16 06:00 Pulse Rate 87 10/06/16 06:00 Respiratory Rate 19 10/06/16 06:00 Blood Pressure 131/50 10/06/16 06:00 O2 Sat by Pulse Oximetry (%) 100 10/05/16 21:00 Constitutional: Yes: Well Nourished, No Distress Neck: Yes: WNL, Supple Cardiovascular: Yes: Regular Rate and Rhythm, S1, S2 Respiratory: Yes: WNL, Regular, CTA Bilaterally, Rales Gastrointestinal: Yes: WNL, Normal Bowel Sounds, Soft. No: Tenderness Edema: No Labs: CBC, BMP 10/06/16 05:00 10/06/16 05:00 INR, PTT INR 1.20 (0.82-1.09) H 10/02/16 05:05 Problem List - Problems (1) GIB (gastrointestinal bleeding) Code(s): K92.2 - GASTROINTESTINAL HEMORRHAGE, UNSPECIFIED (2) Aspiration pneumonia Code(s): J69.0 - PNEUMONITIS DUE TO INHALATION OF FOOD AND VOMIT (3) Multiple sclerosis Code(s): G35 - MULTIPLE SCLEROSIS Assessment/Plan Microbiology 10/01/16 22:16 Nasopharyngeal Swab Influenza Types A,B Antigen ([facility]ER[facility]) - Final 10/01/16 22:16 Nasopharyngeal Swab - Final 10/04/16 21:30 Blood - Peripheral Venous Blood Culture - Preliminary NO GROWTH OBTAINED AFTER 24 HOURS, INCUBATION TO CONTINUE FOR 4 DAYS. 10/04/16 21:30 Blood - Peripheral Venous Blood Culture - Preliminary NO GROWTH OBTAINED AFTER 24 HOURS, INCUBATION TO CONTINUE FOR 4 DAYS. 10/01/16 22:16 Nasopharyngeal Swab Respiratory Virus Panel - Preliminary Laboratory Tests 10/05/16 10/06/16 09:35 05:00 WBC 20.8 H D 17.6 H Hgb 10.5 L Hct 31.4 L Plt Count 165 Assessment GI bleeding resolved Pneumonia post EGD presumed aspiration Multiple sclerosis Plan Continue current therapy antibiotic and obtain Physical therapy consult Holly HDEZ
[2016-10-06] MEDS: DEXTROSE 5%-0.45% SALINE 1,000 ML IV SCH (09:12)
[2016-10-06] MEDS: PANTOPRAZOLE SODIUM 40 MG/100 ML PRE-DOCKED IVPB SCH (09:47)
[2016-10-06] MEDS: DONEPEZIL HCL 10 MG TABLET (FP) PO SCH ×2 (09:47→21:08)
--- NOTE | 2016-10-06 11:33 | PN ---
Progress Note (short form) - Note Progress Note: PULMONARY/CCM Pt seen and examined in the ICU. No further bleeding. No events overnight. Denies fevers or chills. No cough or congestion. Last Vital Signs Temp Pulse Resp BP Pulse Ox 98.9 F 100 H 22 135/49 100 10/06/16 06:00 10/06/16 08:00 10/06/16 08:00 10/06/16 08:00 10/05/16 21:00 Intake & Output 10/03/16 10/04/16 10/05/16 10/06/16 23:59 23:59 23:59 23:59 Intake Total 2300 3295 2100 Output Total 200 Balance 2300 3295 1900 Weight 146 lb 13.246 oz 146 lb 12.8 oz 148 lb 5.938 oz 153 lb Gen: NAD at rest Heart: RRR Lung: decreased breath sounds at the bases Abd: soft, nontender Ext: no edema CBC, BMP 10/06/16 05:00 10/06/16 05:00 Active Medications Chlorhexidine Gluconate (Hibiclens For Decolonization -) 1 applic TP HS [facility] Last Admin: 10/05/16 21:31 Dose: 1 applic Donepezil HCl (Aricept -) 10 mg PO BID [facility] Last Admin: 10/06/16 09:47 Dose: 10 mg Dextrose/Sodium Chloride (D5-1/2ns -) 1,000 mls @ 75 mls/hr IV ASDIR [facility] Last Admin: 10/06/16 09:12 Dose: 75 mls/hr Piperacillin Sod/Tazobactam Sod (Zosyn 4.5gm Ivpb (Pre-Docked)) 100 mls @ 200 mls/hr IVPB Q8H-IV [facility] Last Admin: 10/06/16 09:47 Dose: 200 mls/hr Pantoprazole Sodium (Protonix 40mg Ivpb (Pre-Docked)) 40 mg IVPB DAILY [facility] Last Admin: 10/06/16 09:47 Dose: 40 mg A/P GI Bleed Anemia Diverticulosis Multiple Sclerosis Aspiration event - Pneumonia vs Pneumonitis - continue antibiotics - f/u cultures - monitor H/H - replete lytes - protonix - aspiration precautions - clear thickened liquids - DVT prophylaxis - can monitor on floor
--- NOTE | 2016-10-06 12:09 | PN ---
Physical Exam: SUBJECTIVE: Patient seen and examined in ICU. She is feeling good. OBJECTIVE: Vital Signs Period Temp Pulse Resp BP Sys/Yen Pulse Ox Last 24 Hr 98.1 F-98.9 F 79-112 16-23 121-162/36-88 100 GENERAL: The patient is awake, alert, and fully oriented, in no acute distress. HEAD: Normal with no signs of trauma. EYES: PERRL, extraocular movements intact, sclera anicteric, conjunctiva clear. No ptosis. ENT: Ears normal, nares patent, oropharynx clear without exudates, moist mucous membranes. NECK: Trachea midline, full range of motion, supple. LUNGS: Breath sounds equal, clear to auscultation bilaterally, no wheezes, no crackles, no accessory muscle use. HEART: Regular rate and rhythm, S1, S2 without murmur, rub or gallop. ABDOMEN: Soft, nontender, nondistended, normoactive bowel sounds, no guarding, no rebound, no hepatosplenomegaly, no masses. EXTREMITIES: 2+ pulses, warm, well-perfused, no edema. NEUROLOGICAL: Cranial nerves II through XII grossly intact. Normal speech, gait not observed. PSYCH: Normal mood, normal affect. SKIN: Warm, dry, normal turgor, no rashes or lesions noted Laboratory Results - last 24 hr 10/06/16 10/06/16 05:00 05:00 WBC 17.6 H RBC 3.51 L Hgb 10.5 L Hct 31.4 L MCV 89.4 MCHC 33.4 RDW 14.0 Plt Count 165 MPV 9.2 Neutrophils % 78.0 Lymphocytes % 9.9 D Monocytes % 8.1 Eosinophils % 3.4 Basophils % 0.6 Sodium 142 Potassium 3.0 L Chloride 106 Carbon Dioxide 30 Anion Gap 6 L BUN 5 L Creatinine 0.6 D Creat Clearance w eGFR > 60 Random Glucose 121 H Calcium 7.8 L Phosphorus 2.4 L Magnesium 2.1 Total Bilirubin 0.4 D AST 19 ALT 19 D Alkaline Phosphatase 65 Total Protein 5.1 L Albumin 2.1 L D Active Medications Generic Name Dose Route Start Last Admin Trade Name Freq PRN Reason Stop Dose Admin Chlorhexidine Gluconate 1 applic 10/03/16 22:00 10/05/16 21:31 Hibiclens For Decolonization - TP 1 applic HS JACINTO Administration Donepezil HCl 10 mg 10/03/16 22:00 10/06/16 09:47 Aricept - PO 10 mg BID JACINTO Administration Dextrose/Sodium Chloride 1,000 mls @ 75 mls/hr 10/04/16 08:15 10/06/16 09:12 D5-1/2ns - IV 75 mls/hr ASDIR JACINTO Administration Piperacillin Sod/Tazobactam Sod 100 mls @ 200 mls/hr 10/05/16 10:00 10/06/16 09 :47 Zosyn 4.5gm Ivpb (Pre-Docked) IVPB 200 mls/hr Q8H-IV JACINTO Administration Pantoprazole Sodium 40 mg 10/04/16 10:00 10/06/16 09:47 Protonix 40mg Ivpb (Pre-Docked) IVPB 40 mg DAILY JACINTO Administration Potassium Chloride 40 meq 10/06/16 12:00 K-Dur - PO 10/06/16 16:01 Q4H JACINTO CXR: left sided hemithorax, left infiltrate. ASSESSMENT/PLAN: Patient is a 76 year old female with a PMHx of multiple sclerosis who presents for rectal bleeding for a day, x4. The pt had one more episode of bleeding from her rectum in ED. Patient admitted to ICU for further monitoring and management. Lower GI Bleed: -no episodes of melena overnight -colonoscopy done on Friday, probably diverticular bleeding -changed to full liquid diet -changed Protonix 40 mg IV Daily -d5NS -monitor vitals and more episodes of melena -H/H stable, only 1 u transfused -VS stable PNA: -probably aspiration, -speech and swallow eval. pending -ID consulted -started Zosyn day 1 Multiple Sclerosis; -the pt states that was diagnosed in 1960s and she describes flare up as being tired. She has never had any neurological deficits. She doesn't have a neurologist. Only PCP Dr. Varghese. -not on home medications -No acute exacerbation now -uses walker only when leaving home Hypokalemia: -[id number] 2 bags -BMP in AM Dementia: -Donepezil 23 mg DAILY F/E/N -D5NS -Electrolytes wnl -Clear liquid diet Prophylaxis -SCD's for DVT -Protonix for GI Disposition -The pt is in ICU Problem List - Problems (1) GIB (gastrointestinal bleeding) Code(s): K92.2 - GASTROINTESTINAL HEMORRHAGE, UNSPECIFIED Visit type - Emergency Visit Emergency Visit: Yes ED Registration Date: 10/01/16 Care time: The patient presented to the Emergency Department on the above date and was hospitalized for further evaluation of their emergent condition. - New Patient This patient is new to me today: No - Critical Care Critical Care patient: No
[2016-10-06] MEDS: POTASSIUM CHLORIDE TABS 20 MEQ TABLET.ER (FP) PO SCH ×2 (15:41→15:50)
--- NOTE | 2016-10-06 16:12 | PN ---
Teaching Attending Note Name of Resident: Leigh Brennan ATTENDING PHYSICIAN STATEMENT I saw and evaluated the patient. I reviewed the resident's note and discussed the case with the resident. I agree with the resident's findings and plan as documented. SUBJECTIVE: Patient is coughing today more than yesterday. Lying in bed with no acute distress. OBJECTIVE: Vital Signs Temperature 98.4 F 10/06/16 14:00 Pulse Rate 122 H 10/06/16 14:00 Respiratory Rate 18 10/06/16 14:00 Blood Pressure 139/72 10/06/16 14:00 O2 Sat by Pulse Oximetry (%) 100 10/05/16 21:00 GENERAL: The patient is awake, alert, and fully oriented, in no acute distress. HEAD: Normal with no signs of trauma. EYES: PERRL, extraocular movements intact, sclera anicteric, conjunctiva clear. No ptosis. ENT: Ears normal, nares patent, oropharynx clear without exudates, moist mucous membranes. NECK: Trachea midline, full range of motion, supple. LUNGS: Breath sounds equal, LLL rales with no wheezes, no crackles, no accessory muscle use. HEART: Regular rate and rhythm, S1, S2 without murmur, rub or gallop. ABDOMEN: Soft, ND,NT , normoactive bowel sounds, no guarding, no rebound, no hepatosplenomegaly, no masses. EXTREMITIES: 2+ pulses, warm, well-perfused, no edema. NEUROLOGICAL: Cranial nerves II through XII grossly intact. Normal speech, gait not observed. PSYCH: Normal mood, normal affect. SKIN: Warm, dry, normal turgor, no rashes or lesions noted CBCD WBC 17.6 K/mm3 (4.0-10.0) H 10/06/16 05:00 RBC 3.51 M/mm3 (3.60-5.2) L 10/06/16 05:00 Hgb 10.5 GM/dL (10.7-15.3) L 10/06/16 05:00 Hct 31.4 % (32.4-45.2) L 10/06/16 05:00 MCV 89.4 fl (80-96) 10/06/16 05:00 MCHC 33.4 g/dl (32.0-36.0) 10/06/16 05:00 RDW 14.0 % (11.6-15.6) 10/06/16 05:00 Plt Count 165 K/MM3 (134-434) 10/06/16 05:00 MPV 9.2 fl (7.5-11.1) 10/06/16 05:00 CMP Sodium 142 mmol/L (136-145) 10/06/16 05:00 Potassium 3.0 mmol/L (3.5-5.1) L 10/06/16 05:00 Chloride 106 mmol/L (98-107) 10/06/16 05:00 Carbon Dioxide 30 mmol/L (21-32) 10/06/16 05:00 Anion Gap 6 (8-16) L 10/06/16 05:00 BUN 5 mg/dL (7-18) L 10/06/16 05:00 Creatinine 0.6 mg/dL (0.55-1.02) D 10/06/16 05:00 Creat Clearance w eGFR > 60 (>60) 10/06/16 05:00 Random Glucose 121 mg/dL (74-106) H 10/06/16 05:00 Calcium 7.8 mg/dL (8.5-10.1) L 10/06/16 05:00 Total Bilirubin 0.4 mg/dL (0.2-1.0) D 10/06/16 05:00 AST 19 U/L (15-37) 10/06/16 05:00 ALT 19 U/L (12-78) D 10/06/16 05:00 Alkaline Phosphatase 65 U/L (45-117) 10/06/16 05:00 Total Protein 5.1 g/dl (6.4-8.2) L 10/06/16 05:00 Albumin 2.1 g/dl (3.4-5.0) L D 10/06/16 05:00 CARDIAC ENZYMES Creatine Kinase 69 IU/L (26-192) 10/01/16 22:30 Troponin I < 0.02 ng/ml (0.00-0.05) 10/01/16 22:30 Current Medications Generic Name Dose Route Start Last Admin Trade Name Freq PRN Reason Stop Dose Admin Chlorhexidine Gluconate 1 applic 10/03/16 22:00 10/05/16 21:31 Hibiclens For Decolonization - TP 1 applic HS JACINTO Administration Donepezil HCl 10 mg 10/03/16 22:00 10/06/16 09:47 Aricept - PO 10 mg BID JACINTO Administration Dextrose/Sodium Chloride 1,000 mls @ 75 mls/hr 10/04/16 08:15 10/06/16 09:12 D5-1/2ns - IV 75 mls/hr ASDIR JACINTO Administration Piperacillin Sod/Tazobactam Sod 100 mls @ 200 mls/hr 10/05/16 10:00 10/06/16 09 :47 Zosyn 4.5gm Ivpb (Pre-Docked) IVPB 200 mls/hr Q8H-IV JACINTO Administration Pantoprazole Sodium 40 mg 10/04/16 10:00 10/06/16 09:47 Protonix 40mg Ivpb (Pre-Docked) IVPB 40 mg DAILY JACINTO Administration Medication Instructions Recorded Donepezil HCl 23 mg PO DAILY 09/30/16 ASSESSMENT AND PLAN: Patient is a 76 year old female with a PMHx of multiple sclerosis who presents for rectal bleeding for a day, x4. The pt had one more episode of bleeding from her rectum in ED. Patient admitted to ICU for further monitoring and management. # Acute cough with extensive LLL infiltrate s/p EGD most likely aspirated , seen BY ID and was started on IV Antibiotic Zosyn. 4.5 grs q8H IV continue. Swallowing evauation in am. # Lower GI Bleed: Patient had colonoscopy with s/p negative EGD by , no further bloody BM's ,H/H stable. # Hx of Multiple Sclerosis; the pt states that was diagnosed in 1960s # Hypokalemia:KCl 40 meq IV in D51/2 nS at 75cc/he x 2 bags # Dementia:Donepezil 23 mg DAILY DVT Prophylaxis SCD's -Protonix for GI
[2016-10-06] MEDS: D5-1/2NS+40 MEQ KCL - 1,000 ML IV SCH (17:03)
[2016-10-06] MEDS: CHLORHEXIDINE GLUCONATE 4% CLEANSER FOR DECOLONIZATION TP SCH (21:08)
[2016-10-07] MEDS: PIPERACILLIN/TAZOB 4.5 GM 100 ML IVPB SCH ×3 (02:04→17:25)
[2016-10-07] MEDS ORDERED: morphine CARPU-JECT 2 MG/1 ML DISP.SYRIN IVPUSH ONE (02:39)
[2016-10-07] MEDS ORDERED: METOPROLOL TARTRATE 5 MG/5 ML VIAL IVPUSH ONE (06:03)
[2016-10-07 06:35] LABS: BASOPHIL 0.3 % (0-2.0); EOSINOPHIL 3.7 % (0-4.5); MCHC 33.6 g/dl (32.0-36.0); MEAN CELL VOLUME 89.4 fl (80-96); MEAN PLT VOLUME 9.3 fl (7.5-11.1); NEUTROPHILS 75.3 % (42.8-82.8); PLATELET COUNT 180 K/MM3 (134-434); WHITE BLOOD COUNT 14.8 K/mm3 (4.0-10.0)
[2016-10-07 06:52] LABS: ALBUMIN 2.3 g/dl (3.4-5.0); ANION GAP 7 (8-16); CO2 29 mmol/L (21-32); GLUCOSE,RANDOM 118 mg/dL (74-106); PHOSPHOROUS 2.3 mg/dL (2.5-4.9); SGOT/AST 15 U/L (15-37)
[2016-10-07 06:54] LABS: ALK PHOS 71 U/L (45-117); BILIRUBIN,TOTAL 0.3 mg/dL (0.2-1.0); CREATININE 0.5 mg/dL (0.55-1.02); SGPT/ALT 19 U/L (12-78); TOT PROT 5.5 g/dl (6.4-8.2)
[2016-10-07] MEDS: D5-1/2NS+40 MEQ KCL - 1,000 ML IV SCH ×2 (08:46→17:21)
--- NOTE | 2016-10-07 08:47 | PN ---
Progress Note, Physician Chief Complaint: ID Sitting in bed eating breakfast No distress Zosyn - Current Medication List Current Medications: Active Medications Chlorhexidine Gluconate (Hibiclens For Decolonization -) 1 applic TP HS JACINTO Donepezil HCl (Aricept -) 10 mg PO BID JACINTO Dextrose/Sodium Chloride (D5-1/2ns+40 Meq Kcl -) 1,000 mls @ 75 mls/hr IV ASDIR JACINTO Stop: 10/08/16 05:49 Last Admin: 10/06/16 17:03 Dose: 75 mls/hr Piperacillin Sod/Tazobactam Sod (Zosyn 4.5gm Ivpb (Pre-Docked)) 100 mls @ 200 mls/hr IVPB Q8H-IV JACINTO Pantoprazole Sodium (Protonix 40mg Ivpb (Pre-Docked)) 40 mg IVPB DAILY JACINTO - Objective Vital Signs: Vital Signs Temperature 98.2 F 10/07/16 04:00 Pulse Rate 116 H 10/07/16 06:08 Respiratory Rate 15 10/07/16 06:00 Blood Pressure 174/61 10/07/16 06:08 O2 Sat by Pulse Oximetry (%) 96 10/06/16 20:54 Neck: Yes: WNL, Supple Cardiovascular: Yes: Regular Rate and Rhythm, S1, S2. No: Murmur Respiratory: Yes: WNL, Regular, CTA Bilaterally, Rales Gastrointestinal: Yes: Soft. No: Tenderness, Tenderness, Rebound Edema: No Labs: CBC, BMP 10/07/16 05:00 10/07/16 05:00 INR, PTT INR 1.20 (0.82-1.09) H 10/02/16 05:05 Problem List - Problems (1) GIB (gastrointestinal bleeding) Code(s): K92.2 - GASTROINTESTINAL HEMORRHAGE, UNSPECIFIED (2) Aspiration pneumonia Code(s): J69.0 - PNEUMONITIS DUE TO INHALATION OF FOOD AND VOMIT (3) Multiple sclerosis Code(s): G35 - MULTIPLE SCLEROSIS Assessment/Plan Laboratory Tests 10/05/16 10/06/16 10/07/16 09:35 05:00 05:00 WBC 20.8 H D 17.6 H 14.8 H Hgb 10.0 L Hct 29.7 L Plt Count 180 Microbiology 10/05/16 06:00 Urine - Urine [place] Urine Culture - Final NO GROWTH OBTAINED 10/01/16 22:16 Nasopharyngeal Swab Influenza Types A,B Antigen (SIERRA) - Final 10/01/16 22:16 Nasopharyngeal Swab - Final 10/04/16 21:30 Blood - Peripheral Venous Blood Culture - Preliminary NO GROWTH OBTAINED AFTER 48 HOURS, INCUBATION TO CONTINUE FOR 3 DAYS. 10/04/16 21:30 Blood - Peripheral Venous Blood Culture - Preliminary NO GROWTH OBTAINED AFTER 48 HOURS, INCUBATION TO CONTINUE FOR 3 DAYS. 10/01/16 22:16 Nasopharyngeal Swab Respiratory Virus Panel - Preliminary Assessment Post EGD with aspiration pneumonitis LLL on antibiotic and stable GI bleeding Plan Continue Zosyn as ordered Holly HDEZ
--- NOTE | 2016-10-07 08:52 | CON.CARD ---
Consult Consult Specialty:: cardio Referred by:: hospitalist Reason for Consultation:: tachycardia/bp lability - History of Present Illness Chief Complaint: above History of Present Illness: 76 yo female originally admitted several days ago for GIB; had EGD and FOC reportedly unrevealing, with cessation of bleeding. has been monitored in the ICU. has h/o mult sclerosis. endoscopies done 10/04 and later that night she was noted to be febrile and tachycardic, with rhonchourous breath sounds noted in crit care notes, and new opacities on CXR suggestive of aspiration pneumonitis/PNA. yesterday she started to have sudden episodes of elevated HR and BPs, without evidence of active bleeding, resp distress, pain or anxiety per my d/w dr thorpe review of VSs in [place] shows she had been tachycardic to 100s often, then 120s on 10/04 when had aspiration event, then mostly 100s again until yesterday. bp's have ranged 120s-160s since admit, went up to 170s yest she is still coughing; denies cp or sob otherwise; no palpitations PMH: denies HTN (has regular pmd f/u) no prior CVA or cad or chf - Past Medical History [employer]: Yes: Other (MS) - Past Surgical History Past Surgical History: Yes: Hysterectomy () - Alcohol/Substance Use Hx Alcohol Use: No - Smoking History Smoking history: Former smoker Have you smoked in the past 12 months: No Home Medications - Allergies Allergies/Adverse Reactions: Allergies Allergy/AdvReac Type Severity Reaction Status Date / Time No Known Allergies Allergy Verified 09/30/16 23:23 - Home Medications Home Medications: Ambulatory Orders Donepezil HCl 23 mg PO DAILY 09/30/16 Family Disease History - Family Disease History Family History: Denies (no cmp) Review of Systems - Review of Systems Constitutional: denies: Chills, Fever Eyes: denies: Eye Pain HENT: denies: Nasal Congestion Neck: denies: Stiffness Cardiovascular: denies: Palpitations Respiratory: denies: Orthopnea, PND Gastrointestinal: denies: Diarrhea, Vomiting Genitourinary: denies: Burning, Hematuria Musculoskeletal: denies: Muscle Pain Integumentary: denies: Rash Neurological: denies: Numbness, Seizure, Syncope Endocrine: denies: Excessive Sweating Hematology/Lymphatic: denies: Excessive Bleeding Vital Signs: Vital Signs Temperature 98.2 F 10/07/16 04:00 Pulse Rate 90 10/07/16 08:00 Respiratory Rate 14 10/07/16 08:00 Blood Pressure 153/54 10/07/16 08:00 O2 Sat by Pulse Oximetry (%) 97 10/07/16 08:00 Constitutional: Yes: Well Nourished, No Distress Eyes: No: Sclera Icterus HENT: No: Nasal Congestion Neck: No: Decreased ROM Respiratory: Yes: CTA Bilaterally, Rales (bases). No: Accessory Muscle Use, Wheezes (anteriorly) Gastrointestinal: Yes: Normal Bowel Sounds. No: Distention, Hepatomegaly, Palpable Mass, Tenderness Cardiovascular: Yes: Regular Rate and Rhythm JVD: No Carotid Bruit: No PMI: Non-Displaced Heart Sounds: Yes: S1, S2. No: Gallop Murmur: No: Systolic Murmur, Diastolic Murmur Musculoskeletal: Yes: Other (No kyphosis) Extremities: No: Cold, Cyanosis Edema: No Peripheral Pulses: 2+ Left Carotid, 2+ Right Carotid, 2+ Left Doralis Pedis, 2+ Right Dorsalis Pedis Integumentary: No: Jaundice Neurological: Yes: Alert, Oriented (x3) Psychiatric: No: Agitated - Other Data Labs, Other Data: CBC, BMP 10/07/16 05:00 10/07/16 05:00 INR, PTT INR 1.20 (0.82-1.09) H 10/02/16 05:05 Laboratory Tests 10/01/16 10/03/16 10/05/16 22:30 05:05 09:35 WBC 20.8 H D Hgb Plt Count Sodium Potassium Carbon Dioxide BUN Creatinine AST ALT Troponin I < 0.02 Albumin TSH 1.70 10/07/16 10/07/16 05:00 05:00 WBC 14.8 H Hgb 10.0 L Plt Count 180 Sodium 143 Potassium 3.4 L Carbon Dioxide 29 BUN 4 L Creatinine 0.5 L AST 15 D ALT 19 Troponin I Albumin 2.3 L TSH tele: NSR with sinus tach to 120s; brief runs of consec APCs/PAT; one run with atrial activity present--probably PAT but cannot definitively rule out AFL with variable conduction ekg in ER: sinus tach 100s, normal axis; no path q's or ST-T Imaging - Results Chest X-ray: Report Reviewed (better aeration L lung base; R mid lobe atx vs new infiltr) Assessment/Plan HTN: -modestly labile BPs here, ranging normal to 170s syst -no prior h/o HTN in notes, and no bp meds on home med list in ER notes/admit note -give acute stressors which may be contributing to hi bp, would defer meds for now and reassess bp as outpt--unless remains consistently >160 sinus tachycardia: -likely exacerbated here initially by acute GIB, now by persistent pneumonitis ( low grade fever 10/06) and ongoing coughing -TSH normal, urine and BCX neg -sats normal throughout, makes PE unlikely--check echo, LE duplex -repeat ecg, repeat troponin PAT, r/o PAFL: -freq APCs on tele 10/07, with brief runs of consec APCs/PAT -one run cannot definitively distinguish PAT vs AFL with variable A:V conduction -CHADS VASC =4, though would not rec AC unless she has documented evidence of fib/flutter--should continue telemetry, and f/u with us as outpt for home monitor (she is willing) -rec start low dose bb for prophylaxis of rapid svt and bp control -f/u echo LGIB: -resolved; -no definite culprit on EGD/FOC--suspected diverticular bleed per GI aspiration pneumonitis: -in setting of basline MS with sedation for GI scopes -sats good -per pulm/crit care
[2016-10-07] MEDS ORDERED: PIPERACILLIN/TAZOB 3.375 GM 50 ML IVPB ONE (09:01)
[2016-10-07] MEDS: DONEPEZIL HCL 10 MG TABLET (FP) PO SCH ×2 (09:35→21:02)
[2016-10-07] MEDS: PANTOPRAZOLE SODIUM 40 MG/100 ML PRE-DOCKED IVPB SCH (09:36)
[2016-10-07 10:42] LABS: TROPONIN I < 0.02 ng/ml (0.00-0.05)
--- NOTE | 2016-10-07 12:07 | CONSULT ---
Admitting History and Physical - Primary Care Physician PCP: Manoj Schmidt - Admission History of Present Illness: Per EMR: "HISTORY OF PRESENT ILLNESS: Patient is a 76 year old female with a PMHx of multiple sclerosis who presents for rectal bleeding that first occurred around 0600 today first noticed by her daughter. Patient's daughter reports she found a small pool of bright red blood around her mother but at the time patient had no complaints of abdominal pain. Patient then had a bowel movement and noticed blood as well but with clots this time. After the first bowel movement the patient had no episodes of bleeding until 2100 today when she started having diffuse lower abdominal cramping rating with a 6/10 severity, which prompted this visit. Patient had a total of three bloody bowel movements today all consisting with dark red clots mixed with the stool. Patient's last colonoscopy was three years and and daughter states it was normal. She denies any previous endoscopies. Denies using NSAID's or blood thinners. Denies any trauma, injury or fall. Patient denies shortness of breath, lightheadedness, loss of consciousness, headache, dizziness, fever, chills, nausea, vomiting, constipation, chest pain, palpitations. Patient currently denies active abdominal pain ER course was notable for: (1) Protonix (2) EKG (3) IV NS" EGD noted. Now on soft and honey thick liquid. Pt denies dysphagia or h/o PNA. 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) - Past Surgical History Past Surgical History: Yes: Hysterectomy () - Smoking History Smoking history: Former smoker Have you smoked in the past 12 months: No - Alcohol/Substance Use Hx Alcohol Use: No History - Admission Reason For Visit: GIB - Diagnostics X-ray: Report Reviewed - General Mental Status: Alert and Oriented, Awake and Alert, Able to Follow Commands Attention: Intact Ability to Follow Directions: Good Head/Neck Control: WFL - Hearing Hearing: Functional Hearing: Normal Speech Evaluation - Communication Primary Language: [place] Communication: Yes: Within Normal Limits Oral Expression Ability: Yes: No Impairment - Speech Production Able to Make Needs Known: Yes: WNL Intelligibility: Yes: WNL - Speech Characteristics Voice Loudness: Mildly Soft/Quiet Voice Pitch: Yes: Normal Voice Phonatory-based Quality: Yes: Dysphonia (mild) Speech Pattern: Normal Nasal Resonance: Normal Articulation: Yes: Precise Rate of Speech: Intact - Language/Auditory Comprehension Follows: Yes: 2 Stage Simple Commands - Language/Verbal Expression Able to Respond to Simple Queries: Yes: WNL Able to Communicate Wants and Needs: Yes: WNL Functional Communication Status: Yes: WNL - Swallow Evaluation/Bedside Assessment Current Nutritional Intake: Soft, Honey Textured Liquids Oral Secretions: Yes: WFL Dentition: Yes: Adequate Facial Symmetry at Rest: Symmetrical Facial Symmetry on Retraction: Symmetrical Facial Movement: Controlled Sensation: Normal Against Resistance Opening: Normal Against Resistance Closing: Normal Pucker Lips: Normal Smile: Normal Lingual Movement: Normal, Symmetric Lingual Speed of Movement: Normal Lingual Movement Strgth Against Opposition: Normal Lingual Movement Characteristics: Normal Velopharyngeal Movement: Normal Laryngeal Elevation: WFL Laryngeal Movement: Able to Palpate Rate of Intake: WFL Bolus Size: WFL Labial Seal: WFL Chewing: WFL Oral Prep Time: WFL A-P Transit: WFL Pocketing: None Timing of Swallow: WFL Coughing/Throat Clear: No Change in Voice: No Recommendations - Dysphagia Impressions/Plan Dysphagia Impressions: Ongoing Evaluation *Silent aspiration: cannot be R/O at bedside Recommendations: Modified Barium Swallow (if cough/congestion, to r/o silent aspiration) - Recommendations Diet Consistency: Other (regular chopped) Liquids: Thin Liquids (sips,no straws, monitor tolerance)
--- NOTE | 2016-10-07 12:30 | EKG ---
Test Reason : Blood Pressure : / mmHG Vent. Rate : 099 BPM Atrial Rate : 099 BPM P-R Int : 130 ms QRS Dur : 072 ms QT Int : 378 ms P-R-T Axes : 068 063 027 degrees QTc Int : 485 ms NORMAL SINUS RHYTHM NORMAL ECG WHEN COMPARED WITH ECG OF 30-SEP-2016 22:50, NO SIGNIFICANT CHANGE WAS FOUND Confirmed by HEAVEN PHIPPS MD ([id number]) on 10/07/2016 12:29:53 PM Referred By: SMITH JENSEN Confirmed By:HEAVEN PHIPPS MD
--- NOTE | 2016-10-07 12:58 | EKG ---
Test Reason : Blood Pressure : / mmHG Vent. Rate : 109 BPM Atrial Rate : 109 BPM P-R Int : 126 ms QRS Dur : 066 ms QT Int : 334 ms P-R-T Axes : 068 053 044 degrees QTc Int : 449 ms SINUS TACHYCARDIA WITH PREMATURE ATRIAL COMPLEXES WITH ABERRANT CONDUCTION POSSIBLE LEFT ATRIAL ENLARGEMENT BORDERLINE ECG NO PREVIOUS ECGS AVAILABLE Confirmed by MOISE HDEZ, HEAVEN ([id number]) on 10/07/2016 12:58:10 PM Referred By: Confirmed By:HEAVEN PHIPPS MD
[2016-10-07] MEDS: METOPROLOL SUCCINATE 25 MG TAB.SR.24H (FP) PO SCH (13:04)
--- NOTE | 2016-10-07 15:20 | PN ---
Teaching Attending Note Name of Resident: Rancho Gutierrez ATTENDING PHYSICIAN STATEMENT I saw and evaluated the patient. I reviewed the resident's note and discussed the case with the resident. I agree with the resident's findings and plan as documented. SUBJECTIVE: Patient seen and examined in the ICU. No further bleeding noted. Some congested cough. No CP. Intake & Output 10/04/16 10/05/16 10/06/16 10/07/16 23:59 23:59 23:59 23:59 Intake Total 3295 2100 2450 1240 Output Total 200 Balance 3295 1900 2450 1240 Weight 146 lb 12.8 oz 148 lb 5.938 oz 153 lb 153 lb 4.8 oz Last Vital Signs Temp Pulse Resp BP Pulse Ox 99.6 F 103 H 19 167/71 97 10/07/16 14:00 10/07/16 14:00 10/07/16 14:00 10/07/16 14:00 10/07/16 08:00 Active Medications Chlorhexidine Gluconate (Hibiclens For Decolonization -) 1 applic TP HS [facility] Donepezil HCl (Aricept -) 10 mg PO BID [facility] Last Admin: 10/07/16 09:35 Dose: 10 mg Dextrose/Sodium Chloride (D5-1/2ns+40 Meq Kcl -) 1,000 mls @ 75 mls/hr IV ASDIR [facility] Stop: 10/08/16 05:49 Last Admin: 10/07/16 08:46 Dose: 75 mls/hr Piperacillin Sod/Tazobactam Sod (Zosyn 4.5gm Ivpb (Pre-Docked)) 100 mls @ 200 mls/hr IVPB Q8H-IV [facility] Last Admin: 10/07/16 10:31 Dose: 200 mls/hr Metoprolol Succinate (Toprol Xl -) 25 mg PO DAILY [facility] Last Admin: 10/07/16 13:04 Dose: 25 mg Pantoprazole Sodium (Protonix 40mg Ivpb (Pre-Docked)) 40 mg IVPB DAILY [facility] Last Admin: 10/07/16 09:36 Dose: 40 mg Gen: NAD at rest Heart: RRR Lung: decreased breath sounds at the bases Abd: soft, nontender Ext: no edema Laboratory Results - last 24 hr 10/07/16 10/07/16 10/07/16 05:00 05:00 09:25 WBC 14.8 H RBC 3.32 L Hgb 10.0 L Hct 29.7 L MCV 89.4 MCHC 33.6 RDW 14.0 Plt Count 180 MPV 9.3 Neutrophils % 75.3 Lymphocytes % 12.3 D Monocytes % 8.4 Eosinophils % 3.7 Basophils % 0.3 Sodium 143 Potassium 3.4 L Chloride 107 Carbon Dioxide 29 Anion Gap 7 L BUN 4 L Creatinine 0.5 L Creat Clearance w eGFR > 60 Random Glucose 118 H Calcium 8.0 L Phosphorus 2.3 L Magnesium 2.0 Total Bilirubin 0.3 D AST 15 D ALT 19 Alkaline Phosphatase 71 Creatine Kinase 78 Cancelled Troponin I < 0.02 Cancelled Total Protein 5.5 L Albumin 2.3 L A/P GI Bleed Anemia Diverticulosis Multiple Sclerosis Aspiration event - Pneumonia vs Pneumonitis - continue ABX - Follow final cultures - Monitor H/H - Replete lytes - Aspiration precautions - Clear thickened liquids - DVT prophylaxis - Floor Dr Jones CCTime 35"
--- NOTE | 2016-10-07 15:49 | PN ---
Physical Exam: SUBJECTIVE: Patient seen and examined at bedside. No new complaints. No overnight events. Denies CP,MCKINNEY, SOB, OBJECTIVE: Vital Signs Period Temp Pulse Resp BP Sys/Yen Pulse Ox Last 24 Hr 98.0 F-99.6 F 76-118 14-21 130-174/44-78 96-97 GENERAL: Awake, alert, in no acute distress. HEAD: Normal with no signs of trauma. EYES: Pupils equal, round and reactive to light, sclera anicteric, conjunctiva clear. No lid lag. EARS, NOSE, THROAT: Ears normal, nares patent,Moist mucous membranes. NECK: supple without lymphadenopathy, JVD, or masses. LUNGS: Breath diminished at bases bilaterally. No wheezes, and no crackles. No accessory muscle use. HEART:RRR, normal S1 and S2 without murmur, rub or gallop. ABDOMEN: Soft, nontender, not distended, normoactive bowel sounds, no guarding, no rebound, no masses. No hepatomegaly or splenomegaly. MUSCULOSKELETAL: Normal range of motion at all joints. No bony deformities or tenderness. No CVA tenderness. UPPER EXTREMITIES: 2+ pulses, warm, well-perfused. No cyanosis. No clubbing. no edema. LOWER EXTREMITIES: 2+ pulses, warm, well-perfused. No calf tenderness. trace edema. NEUROLOGICAL: AAOx2 PSYCHIATRIC: Cooperative. Good eye contact. Appropriate mood and affect. SKIN: Warm, dry, normal turgor, no rashes or lesions noted. Laboratory Results - last 24 hr 10/07/16 10/07/16 10/07/16 05:00 05:00 09:25 WBC 14.8 H RBC 3.32 L Hgb 10.0 L Hct 29.7 L MCV 89.4 MCHC 33.6 RDW 14.0 Plt Count 180 MPV 9.3 Neutrophils % 75.3 Lymphocytes % 12.3 D Monocytes % 8.4 Eosinophils % 3.7 Basophils % 0.3 Sodium 143 Potassium 3.4 L Chloride 107 Carbon Dioxide 29 Anion Gap 7 L BUN 4 L Creatinine 0.5 L Creat Clearance w eGFR > 60 Random Glucose 118 H Calcium 8.0 L Phosphorus 2.3 L Magnesium 2.0 Total Bilirubin 0.3 D AST 15 D ALT 19 Alkaline Phosphatase 71 Creatine Kinase 78 Cancelled Troponin I < 0.02 Cancelled Total Protein 5.5 L Albumin 2.3 L Active Medications Generic Name Dose Route Start Last Admin Trade Name Freq PRN Reason Stop Dose Admin Chlorhexidine Gluconate 1 applic 10/07/16 22:00 Hibiclens For Decolonization - TP HS JACINTO Donepezil HCl 10 mg 10/07/16 10:00 10/07/16 09:35 Aricept - PO 10 mg BID JACINTO Administration Dextrose/Sodium Chloride 1,000 mls @ 75 mls/hr 10/06/16 16:30 10/07/16 08:46 D5-1/2ns+40 Meq Kcl - IV 10/08/16 05:49 75 mls/hr ASDIR JACINTO Administration Piperacillin Sod/Tazobactam Sod 100 mls @ 200 mls/hr 10/07/16 10:00 10/07/16 10 :31 Zosyn 4.5gm Ivpb (Pre-Docked) IVPB 200 mls/hr Q8H-IV JACINTO Administration Metoprolol Succinate 25 mg 10/07/16 10:45 10/07/16 13:04 Toprol Xl - PO 25 mg DAILY JACINTO Administration Pantoprazole Sodium 40 mg 10/07/16 10:00 10/07/16 09:36 Protonix 40mg Ivpb (Pre-Docked) IVPB 40 mg DAILY JACINTO Administration ASSESSMENT/PLAN: 76 year old female with a PMHx of multiple sclerosis who presents for BRBPR. Patient transferred to ICU for close monitoring. Pulmonary: * Aspiration Pneumonitis * Continue Zosyn 4.5gm Q8h * Supplemental O2 maintain sat. >90% GI: * Colonoscopy/EGD (-) for active bleed. * no further bloody BM's * H/H stable. Multiple Sclerosis * On no home medications * No acute exacerbation F/E/N * D5 1/2 NS @ 75 ml/hr * Electrolytes wnl * Advanced to clears Prophylaxis: * SCD's for DVT * Protonix drip for GI Dispo: Transfer to med/surg Visit type - Emergency Visit Emergency Visit: Yes ED Registration Date: 10/01/16 Care time: The patient presented to the Emergency Department on the above date and was hospitalized for further evaluation of their emergent condition. - New Patient This patient is new to me today: No - Critical Care Critical Care patient: Yes Total Critical Care Time (in minutes): 32 Critical Care Statement: The care of this patient involved high complexity decision making to prevent further life threatening deterioration of the patient 's condition and/or to evalute & treat vital organ system(s) failure or risk of failure.
--- NOTE | 2016-10-07 16:17 | PN ---
Teaching Attending Note Name of Resident: Leigh Brennan ATTENDING PHYSICIAN STATEMENT I saw and evaluated the patient. I reviewed the resident's note and discussed the case with the resident. I agree with the resident's findings and plan as documented. SUBJECTIVE: Patient noticed to have HR increase when sitting to have lunch and on any exertion. OBJECTIVE: Vital Signs Temperature 99.6 F 10/07/16 14:00 Pulse Rate 103 H 10/07/16 14:00 Respiratory Rate 19 10/07/16 14:00 Blood Pressure 167/71 10/07/16 14:00 O2 Sat by Pulse Oximetry (%) 97 10/07/16 09:00 GENERAL: The patient is awake, alert, and fully oriented, in no acute distress. HEAD: Normal with no signs of trauma. EYES: PERRL, extraocular movements intact, sclera anicteric, conjunctiva clear. ENT: Ears normal, oropharynx clear without exudates, moist mucous membranes. NECK: Trachea midline, full range of motion, supple. LUNGS: Breath sounds equal, LLL rales with no wheezes, no crackles, no accessory muscle use. HEART: tachycardic , S1, S2 without murmur, rub or gallop. ABDOMEN: Soft, ND,NT , normoactive bowel sounds, no guarding, no rebound, no hepatosplenomegaly, no masses. EXTREMITIES: 2+ pulses, warm, well-perfused, no edema. NEUROLOGICAL: Cranial nerves II through XII grossly intact. Normal speech, gait not observed. PSYCH: Normal mood, normal affect. SKIN: Warm, dry, normal turgor, no rashes or lesions noted CBCD WBC 14.8 K/mm3 (4.0-10.0) H 10/07/16 05:00 RBC 3.32 M/mm3 (3.60-5.2) L 10/07/16 05:00 Hgb 10.0 GM/dL (10.7-15.3) L 10/07/16 05:00 Hct 29.7 % (32.4-45.2) L 10/07/16 05:00 MCV 89.4 fl (80-96) 10/07/16 05:00 MCHC 33.6 g/dl (32.0-36.0) 10/07/16 05:00 RDW 14.0 % (11.6-15.6) 10/07/16 05:00 Plt Count 180 K/MM3 (134-434) 10/07/16 05:00 MPV 9.3 fl (7.5-11.1) 10/07/16 05:00 CMP Sodium 143 mmol/L (136-145) 10/07/16 05:00 Potassium 3.4 mmol/L (3.5-5.1) L 10/07/16 05:00 Chloride 107 mmol/L (98-107) 10/07/16 05:00 Carbon Dioxide 29 mmol/L (21-32) 10/07/16 05:00 Anion Gap 7 (8-16) L 10/07/16 05:00 BUN 4 mg/dL (7-18) L 10/07/16 05:00 Creatinine 0.5 mg/dL (0.55-1.02) L 10/07/16 05:00 Creat Clearance w eGFR > 60 (>60) 10/07/16 05:00 Random Glucose 118 mg/dL (74-106) H 10/07/16 05:00 Calcium 8.0 mg/dL (8.5-10.1) L 10/07/16 05:00 Total Bilirubin 0.3 mg/dL (0.2-1.0) D 10/07/16 05:00 AST 15 U/L (15-37) D 10/07/16 05:00 ALT 19 U/L (12-78) 10/07/16 05:00 Alkaline Phosphatase 71 U/L (45-117) 10/07/16 05:00 Total Protein 5.5 g/dl (6.4-8.2) L 10/07/16 05:00 Albumin 2.3 g/dl (3.4-5.0) L 10/07/16 05:00 CARDIAC ENZYMES Creatine Kinase 78 IU/L (26-192) 10/07/16 05:00 Troponin I < 0.02 ng/ml (0.00-0.05) 10/07/16 05:00 Current Medications Generic Name Dose Route Start Last Admin Trade Name Freq PRN Reason Stop Dose Admin Chlorhexidine Gluconate 1 applic 10/07/16 22:00 Hibiclens For Decolonization - TP HS JACINTO Donepezil HCl 10 mg 10/07/16 10:00 10/07/16 09:35 Aricept - PO 10 mg BID JACINTO Administration Dextrose/Sodium Chloride 1,000 mls @ 75 mls/hr 10/06/16 16:30 10/07/16 08:46 D5-1/2ns+40 Meq Kcl - IV 10/08/16 05:49 75 mls/hr ASDIR JACINTO Administration Piperacillin Sod/Tazobactam Sod 100 mls @ 200 mls/hr 10/07/16 10:00 10/07/16 10 :31 Zosyn 4.5gm Ivpb (Pre-Docked) IVPB 200 mls/hr Q8H-IV JACINTO Administration Metoprolol Succinate 25 mg 10/07/16 10:45 10/07/16 13:04 Toprol Xl - PO 25 mg DAILY JACINTO Administration Pantoprazole Sodium 40 mg 10/07/16 10:00 10/07/16 09:36 Protonix 40mg Ivpb (Pre-Docked) IVPB 40 mg DAILY JACINTO Administration Medication Instructions Recorded Donepezil HCl 23 mg PO DAILY 09/30/16 ASSESSMENT AND PLAN: Patient is a 76 year old female with a PMHx of multiple sclerosis who presents for rectal bleeding for a day, x4. The pt had one more episode of bleeding from her rectum in ED. Patient admitted to ICU for further monitoring and management. # Aspiration Pneumonia due to having EGD/ sedation during the procedure. #Acute cough with extensive LLL infiltrate s/p EGD due to aspiration , seen BY ID and was started on IV Antibiotic Zosyn. 4.5 grs q8H IV continue. Swallowing evaluation in am. # s/p Acute post hemorrhagic anemia due to acute GI bleed s/p EGD anf Colonoscopy # Lower GI Bleed: Patient had colonoscopy with s/p negative EGD by , no further bloody BM's ,H/H stable. # Hx of Multiple Sclerosis; the pt states that was diagnosed in 1960s # Hypokalemia:KCl 40 meq IV in D51/2 nS at 75cc/he x 2 bags # Dementia:Donepezil continue DVT Prophylaxis SCD's -Protonix for GI
--- NOTE | 2016-10-07 16:50 | PN ---
Physical Exam: SUBJECTIVE: Patient seen and examined. She doesn't have any complaints. She denies chest pain, SOB, dizziness. She is not ambulating. OBJECTIVE: Vital Signs Period Temp Pulse Resp BP Sys/Yen Pulse Ox Last 24 Hr 98.0 F-99.6 F 76-118 14-21 130-174/44-73 96-97 GENERAL: The patient is awake, alert, and fully oriented, in no acute distress. HEAD: Normal with no signs of trauma. EYES: PERRL, extraocular movements intact, sclera anicteric, conjunctiva clear. No ptosis. ENT: Ears normal, nares patent, oropharynx clear without exudates, moist mucous membranes. NECK: Trachea midline, full range of motion, supple. LUNGS: Breath sounds equal, diminished bilaterally, rales on left side, no wheezes, no crackles, no accessory muscle use. HEART: Regular rate and rhythm, S1, S2 without murmur, rub or gallop. ABDOMEN: Soft, nontender, nondistended, normoactive bowel sounds, no guarding, no rebound, no hepatosplenomegaly, no masses. EXTREMITIES: 2+ pulses, warm, well-perfused, no edema. NEUROLOGICAL: Cranial nerves II through XII grossly intact. Normal speech, gait not observed. PSYCH: Normal mood, normal affect. SKIN: Warm, dry, normal turgor, no rashes or lesions noted Laboratory Results - last 24 hr 10/07/16 10/07/16 10/07/16 05:00 05:00 09:25 WBC 14.8 H RBC 3.32 L Hgb 10.0 L Hct 29.7 L MCV 89.4 MCHC 33.6 RDW 14.0 Plt Count 180 MPV 9.3 Neutrophils % 75.3 Lymphocytes % 12.3 D Monocytes % 8.4 Eosinophils % 3.7 Basophils % 0.3 Sodium 143 Potassium 3.4 L Chloride 107 Carbon Dioxide 29 Anion Gap 7 L BUN 4 L Creatinine 0.5 L Creat Clearance w eGFR > 60 Random Glucose 118 H Calcium 8.0 L Phosphorus 2.3 L Magnesium 2.0 Total Bilirubin 0.3 D AST 15 D ALT 19 Alkaline Phosphatase 71 Creatine Kinase 78 Cancelled Troponin I < 0.02 Cancelled Total Protein 5.5 L Albumin 2.3 L Active Medications Generic Name Dose Route Start Last Admin Trade Name Freq PRN Reason Stop Dose Admin Chlorhexidine Gluconate 1 applic 10/07/16 22:00 Hibiclens For Decolonization - TP HS JACINTO Donepezil HCl 10 mg 10/07/16 10:00 10/07/16 09:35 Aricept - PO 10 mg BID JACINTO Administration Dextrose/Sodium Chloride 1,000 mls @ 75 mls/hr 10/06/16 16:30 10/07/16 08:46 D5-1/2ns+40 Meq Kcl - IV 10/08/16 05:49 75 mls/hr ASDIR JACINTO Administration Piperacillin Sod/Tazobactam Sod 100 mls @ 200 mls/hr 10/07/16 10:00 10/07/16 10 :31 Zosyn 4.5gm Ivpb (Pre-Docked) IVPB 200 mls/hr Q8H-IV [facility]ACINTO Administration Metoprolol Succinate 25 mg 10/07/16 10:45 10/07/16 13:04 Toprol Xl - PO 25 mg DAILY JACINTO Administration Pantoprazole Sodium 40 mg 10/07/16 10:00 10/07/16 09:36 Protonix 40mg Ivpb (Pre-Docked) IVPB 40 mg DAILY JACINTO Administration CXR: left sided hemithorax, left infiltrate. ASSESSMENT/PLAN: Patient is a 76 year old female with a PMHx of multiple sclerosis who presents for rectal bleeding for a day, x4. The pt had one more episode of bleeding from her rectum in ED. Patient admitted to ICU for further monitoring and management. Lower GI Bleed: -no more episodes of melena -colonoscopy done on Friday, probably diverticular bleeding -to full liquid diet - Protonix 40 mg IV Daily -d5NS -monitor vitals and more episodes of melena -H/H stable, only 1 u transfused -VS stable PNA: -probably aspiration, -speech and swallow eval. pending -ID consulted -continue Zosyn Sinus tachycardia: -probably due to pneumonitis and coughing -monitor -ordered carotid doppler HTN: -modestly labile BP -no meds recommended for scottie Multiple Sclerosis; -the pt states that was diagnosed in 1960s and she describes flare up as being tired. She has never had any neurological deficits. She doesn't have a neurologist. Only PCP Dr. Varghese. -not on home medications -No acute exacerbation now -uses walker only when leaving home Hypokalemia: -[id number] 2 bags -BMP in AM Dementia: -Donepezil 23 mg DAILY F/E/N -D5NS -Electrolytes wnl -Clear liquid diet Prophylaxis -SCD's for DVT -Protonix for GI Disposition -The pt is in ICU Problem List - Problems (1) GIB (gastrointestinal bleeding) Code(s): K92.2 - GASTROINTESTINAL HEMORRHAGE, UNSPECIFIED Visit type - Emergency Visit Emergency Visit: Yes ED Registration Date: 10/01/16 Care time: The patient presented to the Emergency Department on the above date and was hospitalized for further evaluation of their emergent condition. - New Patient This patient is new to me today: No - Critical Care Critical Care patient: Yes Total Critical Care Time (in minutes): 40 Critical Care Statement: The care of this patient involved high complexity decision making to prevent further life threatening deterioration of the patient 's condition and/or to evalute & treat vital organ system(s) failure or risk of failure. - Discharge Referral Referred to [facility] Med P.C.: No
[2016-10-07] MEDS: CHLORHEXIDINE GLUCONATE 4% CLEANSER FOR DECOLONIZATION TP SCH (21:02)
[2016-10-08] MEDS: PIPERACILLIN/TAZOB 4.5 GM 100 ML IVPB SCH ×3 (01:21→17:23)
[2016-10-08 07:49] LABS: MCH 29.9 pg (25.7-33.7); MCHC 33.3 g/dl (32.0-36.0); MEAN CELL VOLUME 89.8 fl (80-96); MEAN PLT VOLUME 9.1 fl (7.5-11.1); PLATELET COUNT 188 K/MM3 (134-434); RDW 14.1 % (11.6-15.6); WHITE BLOOD COUNT 13.7 K/mm3 (4.0-10.0)
[2016-10-08 08:14] LABS: CALCIUM 7.9 mg/dL (8.5-10.1); CREATININE 0.5 mg/dL (0.55-1.02)
[2016-10-08] MEDS: DONEPEZIL HCL 10 MG TABLET (FP) PO SCH ×2 (09:54→21:52)
[2016-10-08] MEDS: METOPROLOL SUCCINATE 25 MG TAB.SR.24H (FP) PO SCH (09:54)
[2016-10-08] MEDS: PANTOPRAZOLE SODIUM 40 MG/100 ML PRE-DOCKED IVPB SCH (09:55)
--- NOTE | 2016-10-08 10:56 | PN ---
Progress Note, Physician History of Present Illness: pulmonary alert,nad,-sob,-bleeding - Current Medication List Current Medications: Active Medications Chlorhexidine Gluconate (Hibiclens For Decolonization -) 1 applic TP HS [facility] Last Admin: 10/07/16 21:02 Dose: Not Given Donepezil HCl (Aricept -) 10 mg PO BID [facility] Last Admin: 10/08/16 09:54 Dose: 10 mg Piperacillin Sod/Tazobactam Sod (Zosyn 4.5gm Ivpb (Pre-Docked)) 100 mls @ 200 mls/hr IVPB Q8H-IV [facility] Last Admin: 10/08/16 09:54 Dose: 200 mls/hr Metoprolol Succinate (Toprol Xl -) 25 mg PO DAILY [facility] Last Admin: 10/08/16 09:54 Dose: 25 mg Pantoprazole Sodium (Protonix 40mg Ivpb (Pre-Docked)) 40 mg IVPB DAILY [facility] Last Admin: 10/08/16 09:55 Dose: 40 mg - Objective Vital Signs: Vital Signs Temperature 98.2 F 10/08/16 05:55 Pulse Rate 106 H 10/08/16 05:55 Respiratory Rate 22 10/08/16 05:55 Blood Pressure 159/71 10/08/16 05:55 O2 Sat by Pulse Oximetry (%) 97 10/07/16 22:00 Constitutional: Yes: Well Nourished, Calm Eyes: Yes: WNL HENT: Yes: WNL Neck: Yes: WNL Cardiovascular: Yes: Regular Rate and Rhythm, S1, S2 Respiratory: Yes: Rales (few bibasilar rales) Gastrointestinal: Yes: Normal Bowel Sounds, Soft Extremities: Yes: WNL Edema: No Labs: CBC, BMP 10/08/16 05:40 10/08/16 05:40 INR, PTT INR 1.20 (0.82-1.09) H 10/02/16 05:05 - ....Imaging Chest X-ray: Report Reviewed, Image Reviewed (improving LLL infiltrate) Problem List - Problems (1) Aspiration pneumonia Code(s): J69.0 - PNEUMONITIS DUE TO INHALATION OF FOOD AND VOMIT (2) Diverticulosis Code(s): K57.90 - DVRTCLOS OF INTEST, PART UNSP, W/O PERF OR ABSCESS W/O BLEED (3) GIB (gastrointestinal bleeding) Code(s): K92.2 - GASTROINTESTINAL HEMORRHAGE, UNSPECIFIED (4) Multiple sclerosis Code(s): G35 - MULTIPLE SCLEROSIS Assessment/Plan A/P GI Bleed Anemia Diverticulosis Multiple Sclerosis Aspiration event - Pneumonia vs Pneumonitis - continue ABX - Monitor H/H - Replete lytes - Aspiration precautions - Clear thickened liquids - DVT prophylaxis DR RAMIREZ
--- NOTE | 2016-10-08 11:42 | PN ---
Progress Note (short form) - Note Progress Note: CC: tachycardia/bp lability S: Ambulated today for the first time. + weakness. No cp, palps, dizziness, sob. Current Medications Chlorhexidine Gluconate (Hibiclens For Decolonization -) 1 applic TP HS [facility] Last Admin: 10/07/16 21:02 Dose: Not Given Donepezil HCl (Aricept -) 10 mg PO BID [facility] Last Admin: 10/08/16 09:54 Dose: 10 mg Piperacillin Sod/Tazobactam Sod (Zosyn 4.5gm Ivpb (Pre-Docked)) 100 mls @ 200 mls/hr IVPB Q8H-IV [facility] Last Admin: 10/08/16 09:54 Dose: 200 mls/hr Metoprolol Succinate (Toprol Xl -) 25 mg PO DAILY [facility] Last Admin: 10/08/16 09:54 Dose: 25 mg Pantoprazole Sodium (Protonix 40mg Ivpb (Pre-Docked)) 40 mg IVPB DAILY [facility] Last Admin: 10/08/16 09:55 Dose: 40 mg Vital Signs - 24 hr 10/07/16 10/07/16 10/07/16 12:00 14:00 16:00 Temperature 99.6 F Pulse Rate 112 H 103 H 98 H Respiratory 18 19 21 Rate Blood Pressure 136/73 167/71 145/45 O2 Sat by Pulse Oximetry (%) 10/07/16 10/07/16 10/07/16 18:00 21:00 22:00 Temperature 99.7 F H 100.7 F H Pulse Rate 93 H 109 H Respiratory 22 22 22 Rate Blood Pressure 152/60 144/59 O2 Sat by Pulse 97 97 Oximetry (%) 10/08/16 10/08/16 02:00 05:55 Temperature 97.5 F L 98.2 F Pulse Rate 94 H 106 H Respiratory 22 22 Rate Blood Pressure 161/69 159/71 O2 Sat by Pulse Oximetry (%) Intake & Output 10/06/16 10/07/16 10/08/16 10/09/16 07:59 07:59 07:59 07:59 Intake Total 1000 3450 2480 Balance 1000 3450 2480 Weight 153 lb 153 lb 4.8 oz Constitutional: Yes: Well Nourished, No Distress Eyes: No: Sclera Icterus HENT: No: Nasal Congestion Neck: No: Decreased ROM Respiratory: Yes: CTA Bilaterally, Rales (bases). No: Accessory Muscle Use, Wheezes (anteriorly) Gastrointestinal: Yes: Normal Bowel Sounds. No: Distention, Hepatomegaly, Palpable Mass, Tenderness Cardiovascular: Yes: Regular Rate and Rhythm JVD: No Carotid Bruit: No PMI: Non-Displaced Heart Sounds: Yes: S1, S2. No: Gallop Murmur: No: Systolic Murmur, Diastolic Murmur Musculoskeletal: Yes: Other (No kyphosis) Extremities: No: Cold, Cyanosis Edema: No Peripheral Pulses: 2+ Left Carotid, 2+ Right Carotid, 2+ Left Doralis Pedis, 2+ Right Dorsalis Pedis Integumentary: No: Jaundice Neurological: Yes: Alert, Oriented (x3) Psychiatric: No: Agitated - Other Data Labs, Other Data: CBC, BMP 10/08/16 05:40 10/08/16 05:40 Laboratory Tests 10/07/16 05:00 Troponin I < 0.02 tele: NSR, pac, pvc, short run of svt. ekg in ER: sinus tach 100s, normal axis; no path q's or ST-T carotid u/s: mild plaque, can't exclude rt 50-75% stenosis, no dissection. Imaging - Results Chest X-ray: Report Reviewed (better aeration L lung base; R mid lobe atx vs new infiltr) CXR 10/07: LLL consolidation with small pleural effusion persists Assessment/Plan 76 yo female with MS originally admitted several days ago for GIB s/p endoscopies now with aspiration pna c/b freq APCs on tele 10/07, with brief runs of consec APCs/PAT HTN: -modestly labile BPs here, ranging normal to 170s syst, somewhat improved today -no prior h/o HTN in notes, and no bp meds on home med list in ER notes/admit note -give acute stressors which may be contributing to hi bp, would defer meds for now and reassess bp as outpt--unless remains consistently >160 sinus tachycardia: -likely exacerbated here initially by acute GIB, now by persistent pneumonitis ( low grade fever 10/06 and overnight) -TSH normal, urine and BCX neg -sats normal throughout, makes PE unlikely--no dvt on vascular study -repeat ecg unremarkable, repeat troponin negative. PAT, r/o PAFL: -freq APCs on tele 10/07, with brief runs of consec APCs/PAT -one run cannot definitively distinguish PAT vs AFL with variable A:V conduction -CHADS VASC =4, though would not rec AC unless she has documented evidence of fib/flutter--should continue telemetry, and f/u with us as outpt for home monitor (she is willing) - started low dose bb 10/07 for prophylaxis of rapid svt and bp control, consider uptitration today. - aggressive electrolyte repletion. -f/u echo, still no report? LGIB: -resolved; -no definite culprit on EGD/FOC--suspected diverticular bleed per GI aspiration pneumonitis: -in setting of basline MS with sedation for GI scopes -sats good -per pulm/ID
--- NOTE | 2016-10-08 11:49 | PN ---
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
[2016-10-08] MEDS ORDERED: POTASSIUM CHLORIDE 40 MEQ/30 ML UNIT DOSE CUP PO ONE (12:15)
[2016-10-08] MEDS ORDERED: METOPROLOL SUCCINATE 25 MG TAB.SR.24H (FP) PO ONE (13:01)
--- NOTE | 2016-10-08 13:08 | PN ---
Physical Exam: SUBJECTIVE: Patient seen and examined. She doesn't have any complaints today. She was walking with PT today. OBJECTIVE: Vital Signs Period Temp Pulse Resp BP Sys/Yen Pulse Ox Last 24 Hr 97.5 F-100.7 F 93-109 19- 144-167/45-71 97-97 GENERAL: The patient is awake, alert,demented, in no acute distress. HEAD: Normal with no signs of trauma. EYES: PERRL, extraocular movements intact, sclera anicteric, conjunctiva clear. No ptosis. ENT: Ears normal, nares patent, oropharynx clear without exudates, moist mucous membranes. NECK: Trachea midline, full range of motion, supple. LUNGS: Breath sounds equal, clear to auscultation bilaterally, no wheezes, no crackles, no accessory muscle use. HEART: Regular rate and rhythm, S1, S2 without murmur, rub or gallop. ABDOMEN: Soft, nontender, nondistended, normoactive bowel sounds, no guarding, no rebound, no hepatosplenomegaly, no masses. EXTREMITIES: 2+ pulses, warm, well-perfused, no edema. NEUROLOGICAL: Cranial nerves II through XII grossly intact. Normal speech, gait- walked with PT. PSYCH: Normal mood, normal affect. SKIN: Warm, dry, normal turgor, no rashes or lesions noted Laboratory Results - last 24 hr 10/08/16 10/08/16 05:40 05:40 WBC 13.7 H RBC 3.36 L Hgb 10.1 L Hct 30.2 L MCV 89.8 MCHC 33.3 RDW 14.1 Plt Count 188 MPV 9.1 Sodium 142 Potassium 3.2 L Chloride 106 Carbon Dioxide 27 Anion Gap 9 BUN 4 L Creatinine 0.5 L Random Glucose 98 Calcium 7.9 L Active Medications Generic Name Dose Route Start Last Admin Trade Name Freq PRN Reason Stop Dose Admin Chlorhexidine Gluconate 1 applic 10/07/16 22:00 10/07/16 21:02 Hibiclens For Decolonization - TP Not Given HS JACINTO Donepezil HCl 10 mg 10/07/16 10:10/08/16 09:54 Aricept - PO 10 mg BID JACINTO Administration Piperacillin Sod/Tazobactam Sod 100 mls @ 200 mls/hr 10/07/16 10:00 10/08/16 09 :54 Zosyn 4.5gm Ivpb (Pre-Docked) IVPB 200 mls/hr Q8H-IV JACINTO Administration Potassium Chloride 100 mls @ 100 mls/hr 10/08/16 12:15 Potassium Chloride 10 Meq Premix Ivpb - IVPB 10/08/16 14:14 Q60M JACINTO Metoprolol Succinate 50 mg 10/09/16 10:00 Toprol Xl - PO DAILY JACINTO Metoprolol Succinate 25 mg 10/08/16 13:01 Toprol Xl - PO 10/08/16 13:02 ONCE ONE Pantoprazole Sodium 40 mg 10/07/16 10:00 10/08/16 09:55 Protonix 40mg Ivpb (Pre-Docked) IVPB 40 mg DAILY JACINTO Administration ASSESSMENT/PLAN: CXR: left sided hemithorax, left infiltrate. ASSESSMENT/PLAN: Patient is a 76 year old female with a PMHx of multiple sclerosis who presents for rectal bleeding for a day, x4. The pt had one more episode of bleeding from her rectum in ED. Patient admitted to ICU for further monitoring and management. Lower GI Bleed: -no more episodes of melena -colonoscopy done on Friday, probably diverticular bleeding -full liquid diet -Protonix 40 mg IV Daily -monitor vitals and more episodes of melena -H/H stable, only 1 u transfused -VS stable PNA: -probably aspiration due to EGD -speech and swallow eval. -ID consulted -continue Zosyn Sinus tachycardia: -probably due to pneumonitis and coughing -monitor, today in range 100-110 -carotid Doppler- no acute pathology HTN: -modestly labile BP -Metoprolol 50 mg Daily starting today Multiple Sclerosis; -the pt states that was diagnosed in 1960s and she describes flare up as being tired. She has never had any neurological deficits. She doesn't have a neurologist. Only PCP Dr. Varghese. -not on home medications -No acute exacerbation now -uses walker only when leaving home Hypokalemia: -[id number] 2 bags -BMP in AM Dementia: -Donepezil 23 mg DAILY F/E/N -no -Electrolytes wnl -Clear liquid diet Prophylaxis -SCD's for DVT -Protonix for GI Disposition -The pt is in 4w-telemetry Problem List - Problems (1) GIB (gastrointestinal bleeding) Code(s): K92.2 - GASTROINTESTINAL HEMORRHAGE, UNSPECIFIED Visit type - Emergency Visit Emergency Visit: Yes ED Registration Date: 10/01/16 Care time: The patient presented to the Emergency Department on the above date and was hospitalized for further evaluation of their emergent condition. - New Patient This patient is new to me today: No - Critical Care Critical Care patient: No - Discharge Referral Referred to [facility] Med P.C.: No
--- NOTE | 2016-10-08 13:17 | PN ---
Progress Note, Physician History of Present Illness: Awake, alert No complaints Denies chest pain/ dyspnea/ cough + low grade fever WBC improved BC (-) - Current Medication List Current Medications: Active Medications Chlorhexidine Gluconate (Hibiclens For Decolonization -) 1 applic TP HS [facility] Last Admin: 10/07/16 21:02 Dose: Not Given Donepezil HCl (Aricept -) 10 mg PO BID [facility] Last Admin: 10/08/16 09:54 Dose: 10 mg Piperacillin Sod/Tazobactam Sod (Zosyn 4.5gm Ivpb (Pre-Docked)) 100 mls @ 200 mls/hr IVPB Q8H-IV [facility] Last Admin: 10/08/16 09:54 Dose: 200 mls/hr Potassium Chloride (Potassium Chloride 10 Meq Premix Ivpb -) 100 mls @ 100 mls/ hr IVPB Q60M [facility] Stop: 10/08/16 14:14 Metoprolol Succinate (Toprol Xl -) 50 mg PO DAILY [facility] Metoprolol Succinate (Toprol Xl -) 25 mg PO ONCE ONE Stop: 10/08/16 13:02 Pantoprazole Sodium (Protonix 40mg Ivpb (Pre-Docked)) 40 mg IVPB DAILY [facility] Last Admin: 10/08/16 09:55 Dose: 40 mg - Objective Vital Signs: Vital Signs Temperature 98.2 F 10/08/16 05:55 Pulse Rate 106 H 10/08/16 05:55 Respiratory Rate 22 10/08/16 05:55 Blood Pressure 159/71 10/08/16 05:55 O2 Sat by Pulse Oximetry (%) 97 10/07/16 22:00 Constitutional: Yes: No Distress Eyes: Yes: Conjunctiva Clear Cardiovascular: Yes: Regular Rate and Rhythm, S1, S2 Respiratory: Yes: Diminished Gastrointestinal: Yes: Normal Bowel Sounds, Soft. No: Tenderness Edema: Yes Labs: CBC, BMP 10/08/16 05:40 10/08/16 05:40 INR, PTT INR 1.20 (0.82-1.09) H 10/02/16 05:05 Assessment/Plan LLL pneumonia Fever/ leukocytosis- improved MS Continue empiric zosyn
[2016-10-08] MEDS: KCL 10 MEQ IVPB 100 ML IVPB SCH ×2 (14:49→16:20)
--- NOTE | 2016-10-08 17:54 | PN ---
Teaching Attending Note Name of Resident: Leigh Brennan ATTENDING PHYSICIAN STATEMENT I saw and evaluated the patient. I reviewed the resident's note and discussed the case with the resident. I agree with the resident's findings and plan as documented. SUBJECTIVE: Patient is comfortable, with no acute distress, no shortness of breath. Patient uses her walker at home. no further bleed. OBJECTIVE: Vital Signs Temperature 98.1 F 10/08/16 15:00 Pulse Rate 99 H 10/08/16 15:00 Respiratory Rate 18 10/08/16 15:00 Blood Pressure 130/76 10/08/16 15:00 O2 Sat by Pulse Oximetry (%) 99 10/08/16 10:00 GENERAL: The patient is awake, alert, and fully oriented, in no acute distress. HEAD: Normal with no signs of trauma. EYES: PERRL, extraocular movements intact, sclera anicteric, conjunctiva clear. ENT: Ears normal, oropharynx clear without exudates, moist mucous membranes. NECK: Trachea midline, full range of motion, supple. LUNGS: Breath sounds equal, wheezes, no crackles, no accessory muscle use. HEART: Regular rate and rhythm, S1, S2 without murmur, rub or gallop. ABDOMEN: Soft, ND,NT , normoactive bowel sounds, no guarding, no rebound, no hepatosplenomegaly, no masses. EXTREMITIES: 2+ pulses, warm, well-perfused, no edema. NEUROLOGICAL: Cranial nerves II through XII grossly intact. Normal speech, gait not observed. PSYCH: Normal mood, normal affect. SKIN: Warm, dry, normal turgor, no rashes or lesions noted CBCD WBC 13.7 K/mm3 (4.0-10.0) H 10/08/16 05:40 RBC 3.36 M/mm3 (3.60-5.2) L 10/08/16 05:40 Hgb 10.1 GM/dL (10.7-15.3) L 10/08/16 05:40 Hct 30.2 % (32.4-45.2) L 10/08/16 05:40 MCV 89.8 fl (80-96) 10/08/16 05:40 MCHC 33.3 g/dl (32.0-36.0) 10/08/16 05:40 RDW 14.1 % (11.6-15.6) 10/08/16 05:40 Plt Count 188 K/MM3 (134-434) 10/08/16 05:40 MPV 9.1 fl (7.5-11.1) 10/08/16 05:40 CMP Sodium 142 mmol/L (136-145) 10/08/16 05:40 Potassium 3.2 mmol/L (3.5-5.1) L 10/08/16 05:40 Chloride 106 mmol/L (98-107) 10/08/16 05:40 Carbon Dioxide 27 mmol/L (21-32) 10/08/16 05:40 Anion Gap 9 (8-16) 10/08/16 05:40 BUN 4 mg/dL (7-18) L 10/08/16 05:40 Creatinine 0.5 mg/dL (0.55-1.02) L 10/08/16 05:40 Creat Clearance w eGFR > 60 (>60) 10/07/16 05:00 Random Glucose 98 mg/dL (74-106) 10/08/16 05:40 Calcium 7.9 mg/dL (8.5-10.1) L 10/08/16 05:40 Total Bilirubin 0.3 mg/dL (0.2-1.0) D 10/07/16 05:00 AST 15 U/L (15-37) D 10/07/16 05:00 ALT 19 U/L (12-78) 10/07/16 05:00 Alkaline Phosphatase 71 U/L (45-117) 10/07/16 05:00 Total Protein 5.5 g/dl (6.4-8.2) L 10/07/16 05:00 Albumin 2.3 g/dl (3.4-5.0) L 10/07/16 05:00 CARDIAC ENZYMES Creatine Kinase 78 IU/L (26-192) 10/07/16 05:00 Troponin I < 0.02 ng/ml (0.00-0.05) 10/07/16 05:00 Current Medications Generic Name Dose Route Start Last Admin Trade Name Freq PRN Reason Stop Dose Admin Chlorhexidine Gluconate 1 applic 10/07/16 22:00 10/07/16 21:02 Hibiclens For Decolonization - TP Not Given HS JACINTO Donepezil HCl 10 mg 10/07/16 10:00 10/08/16 09:54 Aricept - PO 10 mg BID JACINTO Administration Piperacillin Sod/Tazobactam Sod 100 mls @ 200 mls/hr 10/07/16 10:00 10/08/16 17 :23 Zosyn 4.5gm Ivpb (Pre-Docked) IVPB 200 mls/hr Q8H-IV JACINTO Administration Metoprolol Succinate 50 mg 10/09/16 10:00 Toprol Xl - PO DAILY JACINTO Pantoprazole Sodium 40 mg 10/07/16 10:00 10/08/16 09:55 Protonix 40mg Ivpb (Pre-Docked) IVPB 40 mg DAILY JACINTO Administration Medication Instructions Recorded Donepezil HCl 23 mg PO DAILY 09/30/16 ASSESSMENT AND PLAN: Patient is a 76 year old female with a PMHx of multiple sclerosis who presents for rectal bleeding for a day, x4. The pt had one more episode of bleeding from her rectum in ED. Patient admitted to ICU for further monitoring and management. # Aspiration Pneumonia due to having EGD/sedation during the procedure # s/p Acute post hemorrhagic anemia due to acute GI bleed s/p EGD and Colonoscopy by stable now, no further bleed. # Acute cough with extensive LLL infiltrate s/p EGD most likely aspirated , seen BY ID and was started on IV Antibiotic Zosyn. 4.5 grs q8H IV continue. Swallowing evauation in am. # SVT on the monitor in icu ,dr. Tolentino consulted, started on Toprol 25mg will increase 50mg today since Hr still elevated and HTN not controlled # Hx of Multiple Sclerosis; the pt states that was diagnosed in 1960s , patient uses a walker at home # Hypokalemia:KCl 40 meq IV in D51/2 nS at 75cc/he x 2 bags # Dementia:Donepezil continue DVT Prophylaxis \:SCD's Gi px: Protonix
[2016-10-08] MEDS ORDERED: ACETAMINOPHEN 325 MG TABLET (FP) PO ONE (21:44)
[2016-10-08] MEDS ORDERED: ACETAMINOPHEN 325 MG TABLET (FP) ONE (21:48)
[2016-10-08] MEDS: CHLORHEXIDINE GLUCONATE 4% CLEANSER FOR DECOLONIZATION TP SCH (21:52)
[2016-10-09] MEDS: PIPERACILLIN/TAZOB 4.5 GM 100 ML IVPB SCH ×2 (02:15→09:45)
[2016-10-09 08:41] LABS: BASOPHIL 0.4 % (0-2.0); MCH 29.8 pg (25.7-33.7); MCHC 33.1 g/dl (32.0-36.0); MEAN CELL VOLUME 89.9 fl (80-96); MEAN PLT VOLUME 8.3 fl (7.5-11.1); NEUTROPHILS 66.6 % (42.8-82.8); PLATELET COUNT 240 K/MM3 (134-434)
[2016-10-09] MEDS: DONEPEZIL HCL 10 MG TABLET (FP) PO SCH (09:45)
[2016-10-09] MEDS: PANTOPRAZOLE SODIUM 40 MG/100 ML PRE-DOCKED IVPB SCH (09:45)
[2016-10-09] MEDS ORDERED: METOPROLOL SUCCINATE 50 MG TAB.SR.24H (FP) PO SCH (10:00)
--- NOTE | 2016-10-09 11:34 | PN ---
Progress Note (short form) - Note Progress Note: S: No cp, palps, dizziness, sob. Current Medications Generic Name Dose Route Start Last Admin Trade Name Freq PRN Reason Stop Dose Admin Chlorhexidine Gluconate 1 applic 10/07/16 22:00 10/08/16 21:52 Hibiclens For Decolonization - TP Not Given HS JACINTO Donepezil HCl 10 mg 10/07/16 10:00 10/09/16 09:45 Aricept - PO 10 mg BID JACINTO Administration Piperacillin Sod/Tazobactam Sod 100 mls @ 200 mls/hr 10/07/16 10:00 10/09/16 09 :45 Zosyn 4.5gm Ivpb (Pre-Docked) IVPB 200 mls/hr Q8H-IV JACINTO Administration Metoprolol Succinate 50 mg 10/09/16 10:00 10/09/16 09:45 Toprol Xl - PO 50 mg DAILY JACINTO Administration Pantoprazole Sodium 40 mg 10/07/16 10:00 10/09/16 09:45 Protonix 40mg Ivpb (Pre-Docked) IVPB 40 mg DAILY JACINTO Administration Vital Signs Period Temp Pulse Resp BP Sys/Yen Pulse Ox Last 24 Hr 97.5 F-99.3 F 80-99 18-20 124-151/55-76 98-99 Constitutional: Yes: Well Nourished, No Distress Eyes: No: Sclera Icterus Respiratory: Yes: CTA Bilaterally, No: Accessory Muscle Use, Wheezes ( anteriorly) Gastrointestinal: Yes: Normal Bowel Sounds. No: Distention, Hepatomegaly, Palpable Mass, Tenderness Cardiovascular: Yes: Regular Rate and Rhythm JVD: No Heart Sounds: Yes: S1, S2. No: Gallop Murmur: No: Systolic Murmur, Diastolic Murmur Extremities: No: Cold, Cyanosis Edema: No Integumentary: No: Jaundice Neurological: Yes: Alert, Oriented (x3) Psychiatric: No: Agitated CBC, BMP 10/09/16 08:00 10/09/16 08:00 tele: sr, occ pacs, no svt ekg in ER: sinus tach 100s, normal axis; no path q's or ST-T carotid u/s: mild plaque, can't exclude rt 50-75% stenosis, no dissection. Assessment/Plan 76 yo female with MS originally admitted several days ago for GIB s/p endoscopies now with aspiration pna c/b freq APCs on tele 10/07, with brief runs of consec APCs/PAT HTN: -cont bb sinus tachycardia: -likely exacerbated here initially by acute GIB, now by persistent pneumonitis ( low grade fever 10/06 and overnight) -TSH normal, urine and BCX neg -sats normal throughout, makes PE unlikely--no dvt on vascular study -repeat ecg unremarkable, repeat troponin negative. PAT, r/o PAFL: -freq APCs on tele 10/07, with brief runs of consec APCs/PAT -one run cannot definitively distinguish PAT vs AFL with variable A:V conduction -CHADS VASC =4, though would not rec AC unless she has documented evidence of fib/flutter--should continue telemetry, and f/u with us as outpt for home monitor - cont bb for prophylaxis of rapid svt and bp control - f/u echo, still no report? LGIB: -resolved; -no definite culprit on EGD/FOC--suspected diverticular bleed per GI aspiration pneumonitis: -in setting of basline MS with sedation for GI scopes -sats good -per pulm/ID
--- NOTE | 2016-10-09 12:55 | PN ---
Progress Note, Physician History of Present Illness: Awake, alert Offers no complaints Afebrile Breathing non-labored No cough noted - Current Medication List Current Medications: Active Medications Chlorhexidine Gluconate (Hibiclens For Decolonization -) 1 applic TP HS [facility] Last Admin: 10/08/16 21:52 Dose: Not Given Donepezil HCl (Aricept -) 10 mg PO BID [facility] Last Admin: 10/09/16 09:45 Dose: 10 mg Piperacillin Sod/Tazobactam Sod (Zosyn 4.5gm Ivpb (Pre-Docked)) 100 mls @ 200 mls/hr IVPB Q8H-IV [facility] Last Admin: 10/09/16 09:45 Dose: 200 mls/hr Metoprolol Succinate (Toprol Xl -) 50 mg PO DAILY [facility] Last Admin: 10/09/16 09:45 Dose: 50 mg Pantoprazole Sodium (Protonix 40mg Ivpb (Pre-Docked)) 40 mg IVPB DAILY [facility] Last Admin: 10/09/16 09:45 Dose: 40 mg - Objective Vital Signs: Vital Signs Temperature 97.5 F L 10/09/16 06:00 Pulse Rate 80 10/09/16 06:00 Respiratory Rate 18 10/09/16 06:00 Blood Pressure 136/66 10/09/16 06:00 O2 Sat by Pulse Oximetry (%) 99 10/09/16 06:00 Constitutional: Yes: No Distress Cardiovascular: Yes: Regular Rate and Rhythm, S1, S2 Respiratory: Yes: CTA Bilaterally Gastrointestinal: Yes: Normal Bowel Sounds, Soft. No: Tenderness Edema: No Labs: CBC, BMP 10/09/16 08:00 10/09/16 08:00 INR, PTT INR 1.20 (0.82-1.09) H 10/02/16 05:05 Assessment/Plan LLL pneumonia Fever/ leukocytosis- improved MS Continue empiric zosyn
[2016-10-09 13:49] VITALS: BP 144/63; PULSE 98; TEMP 97.7
[2016-10-09] MEDS ORDERED: POTASSIUM CHLORIDE TABS 20 MEQ TABLET.ER (FP) PO ONE (14:09)
--- NOTE | 2016-10-09 14:22 | PN ---
Teaching Attending Note Name of Resident: Leigh Brennan ATTENDING PHYSICIAN STATEMENT I saw and evaluated the patient. I reviewed the resident's note and discussed the case with the resident. I agree with the resident's findings and plan as documented. SUBJECTIVE: no fever or chills, sammy db apin , no further GI bleed . OBJECTIVE: NAD CV : RRR Lungs : CTAB ext : no edema Abd : soft, NT, ND , NL BS ASSESSMENT AND PLAN: 76 y/o lady with h/l MS who presented with Lower GI bleed , was thought ot have diverticular bleed, . Hospital course was complicated with Asp PNA and tachycardia 1- GI bleed .likely diverticular , resolved. s/p EGD. no evidence of gastric source. will dc on no PPI and f.U withGI cbc in 1 week 2- Aspiration PNA , day 3 zosyn. no fever or leukocytosis now, if dc will switch to po Augmentin to complete 7 days 3- tachycardia : on tele , rate in high 890s. toprol was just increased yesterday . will cont f/u with card 4- carotid artery US noted, can't r/o stenosis . will have f.u With dr. tran need rehab, awaiting bed availability
--- NOTE | 2016-10-09 14:44 | PN ---
Progress Note (short form) - Note Progress Note: PULMONARY VSS/AFEBRILE RESTING COMFORTABLY ANICTERIC CHEST CLEAR ANTERIOR B/L S1S2 BS+ SOFT 1+ EDEMA LOWER EXT LABS/MEDS/NOTES/MICRO/IMAGING NOTED GI Bleed Anemia Diverticulosis Multiple Sclerosis Aspiration event - Pneumonia vs Pneumonitis - continue ABX - Monitor H/H - Replete lytes - Aspiration precautions - Clear thickened liquids - DVT prophylaxis Shannan FRAGOSO MD
--- NOTE | 2016-10-10 21:13 | DS ---
Physical Exam: SUBJECTIVE: Patient seen and examined. She doesn't have any complaints. She denies more episodes of bleeding, diarrhea, constipation, chest pain, SOB, fever , chills. OBJECTIVE: PHYSICAL EXAM GENERAL: The patient is awake, alert, and fully oriented, in no acute distress. HEAD: Normal with no signs of trauma. EYES: PERRL, sclera anicteric, conjunctiva clear. ENT: Ears normal, nares patent, oropharynx clear without exudates, moist mucous membranes. NECK: Trachea midline, full range of motion, supple. LUNGS: Breath sounds equal, diminished bilaterally, no wheezes, no crackles, no accessory muscle use. HEART: Regular rate and rhythm, S1, S2 without murmur, rub or gallop. ABDOMEN: Soft, nontender, nondistended, normoactive bowel sounds, no guarding, no rebound, no hepatosplenomegaly, no masses. EXTREMITIES: warm, well-perfused, no edema. NEUROLOGICAL: Normal speech, gait not observed. PSYCH: Normal mood, normal affect. SKIN: Warm, dry, normal turgor, no rashes or lesions noted. LABS HOSPITAL COURSE: Date of Admission:10/01/16 Date of Discharge: 10/10/16 Minutes to complete discharge: 50 Discharge Summary Reason For Visit: [facility] Hospital Course: Patient is a 76 year old female with a PMHx of multiple sclerosis who presents for rectal bleeding. Patient's daughter reports she found a small pool of bright red blood around her mother but at the time patient had no complaints of abdominal pain. Patient then had a bowel movement and noticed blood as well but with clots this time. After the first bowel movement the patient had no episodes of bleeding when she started having diffuse lower abdominal cramping rating with a 6/10 severity, which prompted this visit. Patient had a total of three bloody bowel movements today all consisting with dark red clots mixed with the stool. Patient's last colonoscopy was three years and and daughter states it was normal. She denies any previous endoscopies. Denies using NSAID' s or blood thinners. Denies any trauma, injury or fall. Patient denies shortness of breath, lightheadedness, loss of consciousness, headache, dizziness , fever, chills, nausea, vomiting, constipation, chest pain, palpitations. Patient currently denies active abdominal pain. Hopital course;The pt was admitted for Lower GI bleeding and acute post hemorrhagic anemia due to GI bleeding. Possibly due to diverticulosis. She was found to have low hemoglobin/HCT count, was placed in ICU. We ordered protonix, IVF, basic BMP, CBC, transfused 1 u of PRBC, consulted GI. She had EGD done and her bleeding over the course of hospitalization stopped. She developed aspiration pneumonia possibly due to the G procedure she had. We started Zosyn IV.During the ICU stay developed tachycardia and labile BP for which we started Metoprolol and consulted cardiology. She had carotid artery US and we couln't r/ o stenosis. Recommended to f/u with vascular surgeon. She was also assessed by PT. After that we spoke to her daughter who agreed that she goes to temporary rehab center. She was discharged on oral antibiotics. Condition: Improved - Instructions Diet, Activity, Other Instructions: please follow with Dr. Almeida in 1 week Need CBC in 1 week to monitor Hb report any bleeding to your doctor . please follow with Dr. Alexander ( vascular surgery ) , to evaluate carotid artery possible abnormalities . Augmentin through 10/13 evening then stop BMP in 1 week Referrals: Romario Tolentino MD [Staff Physician] - 1 Week Wyatt Almeida MD [Staff Physician] - 1 Week STAFF,NOT ON [Non Staff, Medical] - Tay Alexander MD [Staff Physician] - 1 Week Disposition: RESIDENTIAL FACILITY - Home Medications Comprehensive Discharge Medication List: Ambulatory Orders Donepezil HCl 23 mg PO DAILY 09/30/16 Amox-Tr/K Cl [Augmentin - 875Mg Tablet] 1 tab PO Q12H #8 tablet 10/09/16 Metoprolol Succinate [Toprol XL -] 50 mg PO DAILY #30 tab.sr.24h 10/09/16 Problem List - Problems (1) GIB (gastrointestinal bleeding) Code(s): K92.2 - GASTROINTESTINAL HEMORRHAGE, UNSPECIFIED (2) Acute post-hemorrhagic anemia Code(s): D62 - ACUTE POSTHEMORRHAGIC ANEMIA (3) Lower GI bleed Code(s): K92.2 - GASTROINTESTINAL HEMORRHAGE, UNSPECIFIED (4) Aspiration pneumonia Code(s): J69.0 - PNEUMONITIS DUE TO INHALATION OF FOOD AND VOMIT (5) Diverticulosis Code(s): K57.90 - DVRTCLOS OF INTEST, PART UNSP, W/O PERF OR ABSCESS W/O BLEED This patient is new to me today: No Emergency Visit: Yes ED Registration Date: 10/01/16 Care time: The patient presented to the Emergency Department on the above date and was hospitalized for further evaluation of their emergent condition. Critical Care patient: Yes Total Critical Care Time (in minutes): 45 Critical Care Statement: The care of this patient involved high complexity decision making to prevent further life threatening deterioration of the patient 's condition and/or to evalute & treat vital organ system(s) failure or risk of failure. - Discharge Referral [facility]erred to [facility] Med [facility] No
== END 2016-10-09 16:43 | DRG 377 ==
LOC: JER 22:28 → SUPCPDRO 22:28 → JERBED 10-01 00:21 → JICU 10-01 14:37 → J4W 10-07 19:02
PROVIDERS: ADMIT Internal Medicine; ATTEND Internal Medicine
PROC: 30233N1 Transfusion of Nonautologous Red Blood Cells into Peripheral Vein, Percutaneous Approach (ICD-10-PCS; principal; 2016-10-01)
PROC: 0DJ08ZZ Inspection of Upper Intestinal Tract, Via Natural or Artificial Opening Endoscopic (ICD-10-PCS; 2016-10-04)
PROC: 0DJD8ZZ Inspection of Lower Intestinal Tract, Via Natural or Artificial Opening Endoscopic (ICD-10-PCS; 2016-10-04)
DX: K57.91 Diverticulosis of intestine, part unspecified, without perforation or abscess with bleeding (principal); J69.0 Pneumonitis due to inhalation of food and vomit; D62 Acute posthemorrhagic anemia; G35 Multiple sclerosis; R00.0 Tachycardia, unspecified; E87.6 Hypokalemia; F03.90 Unspecified dementia, unspecified severity, without behavioral disturbance, psychotic disturbance, mood disturbance, and anxiety; K44.9 Diaphragmatic hernia without obstruction or gangrene
CPT/HCPCS: 36415; 36430; 71010-TC; 74174-TC; 80048; 80053; 81003; 81015; 82272; 82550; 83735; 83880; 84100; 84132; 84443; 84484; 85025; 85027; 85044; 85610; 85730; 86900; 86901; 87040; 87086; 87254; 87804; 93005; 93010; 93306-TC; 93880-TC; 93970-TC; 94010; 97116-GP; 97162-PG; 99285-25; P9038; P9058